=== PATIENT | male | born 1930 | race Caucasian/White ===

== ENCOUNTER 2016-05-25 17:49 | Emergency (ER) | payer MEDICARE, OTHER ==
[~2016-05-25] VITALS: Ht 175.3 cm; Wt 99.5 kg
[~2016-05-25 17:49] MED LIST: ASPI-973 PO; CEPH500C PO; CHOL500011 PO; CYAN50003 PO; FINA5TAB9 PO; FURO-128 PO; LIP40 PO; MELA5TAB14 PO; METO-272 PO; METO5TAB5 PO; NITR0.4T6 SL; OXYC-474 PO; POTA-62 PO; POTA20TA16 PO; UBID100C16 PO; WARF5TAB PO; imdur PO
[2016-05-25 18:09] VITALS: BP 103/57; PULSE 6; RESP 16; O2SAT 97
--- NOTE | 2016-05-25 19:18 | DRSVH ---
PROCEDURE: X-RAY TOESS, TWO VIEWS INDICATIONS: injury/fx in past TECHNIQUE: 3 views of the first toe(s) acquired. COMPARISON: [facility], CR, XR TOE(S) 2VW RT, 05/01/2016, 22:33. FINDINGS: Bones: Persistent appearance of nonunion a previously identified distal first phalanx fracture. There is a minimal interval decrease in fracture lucency prominent. Soft tissues: No suspicious soft tissue densities. IMPRESSION: Questionable minimal interval decrease in fracture lucency prominence a previous identifi ed distal first phalanx nonunion fracture. Dictated by: Glenda Lima M.D. on 05/25/2016 at 19:16 Approved by: Glenda Lima M.D. on 05/25/2016 at 19:16
--- NOTE | 2016-05-25 20:41 | ED.REPORT ---
HPI-Extremity Problem Lower Date of Service May 25, 2016 ED Provider: Bradford Ramos MD Pt is a 85 y/o male anticoagulated on warfarin who presents to ER accompanied by his complaining of reinjuring his broken right great toe when he stubbed it while walking to bed this evening. also reports that the patient has been inconsistent with his warfarin for the past four days, and there is thus some concern regarding his INR level. Patient previously broke the affected digit on 05/01/16 while stepping out of the shower. He does not voice any further medical complaints or injuries. Nursing Notes Stated Complaint: TOE BLEEDING Chief Complaint: Extremity Trauma Nursing Notes Reviewed: Yes Allergies: Coded Allergies: No Known Allergies (Unverified , 05/25/16) Scheduled ([imdur]) 30 MG PO DAILY Aspirin (Aspirin) 81 Mg Tablet 81 MG PO DAILY Atorvastatin (Lipitor) 40 Mg Tablet 40 MG PO DAILY Cephalexin (Cephalexin) 500 Mg Capsule 500 MG PO QID Cephalexin (Keflex) 500 Mg Capsule 500 MG PO QID Cholecalciferol (Vitamin D3) (Vitamin D3) 5,000 Unit Tablet 5,000 UNIT PO DAILY Cyanocobalamin (Vitamin B-12) (Vitamin B-12) 5,000 Mcg Tab.rapdis 5,000 MCG PO DAILY Finasteride (Finasteride) 5 Mg Tablet 5 MG PO DAILY Furosemide (Lasix) 40 Mg Tablet 40 MG PO BID Metoprolol Succinate ER (Metoprolol Succinate ER) 50 Mg Tab.er.24h 50 MG PO DAILY Potassium Chloride (Potassium Chloride) 20 Meq Tab.er.prt 40 MEQ PO DAILY TAKE WITH FOOD Potassium Chloride ER (Potassium Chloride ER) 20 Meq Tablet.er 20 MEQ PO QPM TAKE WITH FOOD Warfarin Sodium (Coumadin) 5 Mg Tablet 5 MG PO DAILY Scheduled PRN Melatonin (Melatonin) 5 Mg Tablet 5 MG PO HS PRN PRN Insomnia Metolazone (Metolazone) 5 Mg Tablet 5 MG PO DAILY PRN PRN weight gain > 4 pounds to be given half hour before morning lasix dose Nitroglycerin SL (Nitroglycerin SL) 0.4 Mg Tab.subl 0.4 MG SL PRN For Chest Pain Oxycodone (Roxicodone) 5 Mg Tablet 5 MG PO TID PRN PRN For Pain Miscellaneous Medications Ubidecarenone (Coq-10) 100 Mg Capsule 300 MG PO General Time Seen by MD: 20:39 Chief Complaint Foot injury right, Toe injury right 1 foot bleeding Hx Obtained From: Patient, Spouse Arrived By: Walk-in Onset Occurred: 1 - 4 hours ago Caused by: Accidental, Blunt injury Context: Occurred at: Home injury Location: : Toe right 1 Quality: Painful Severity: Current: Moderate Severity: Maximum: Moderate Past Medical History Past Medical History A-fib on Warfarin CAD Hypertension Hyperlipidemia Ischemic heart disease Bradycardia chronic kidney disease diastolic congestive heart failure mitral valve regurgitation Back pain Depression Past Surgical History CABG in 1998 Pacemaker 11/2013 Left knee arthroplasty Smoking History Unknown if Ever Smoker Social History Home health aide visits twice a week but expresses that she is reaching the limit of her ability to care for patient. She requires EMS to assist after falls. 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 Ambulatory Status Independent Review of Systems Musculoskeletal: Reports: Extremity pain (Right great toe), Extremity swelling (Right great toe), Denies: Back pain, Joint pain, Lumbar pain, Neck pain, Thoracic pain Neurologic: Denies: Headache, Syncope Complete sys rev & neg: except as marked. Hematologic: Reports Bleeding (bleeding of right toe) Physical Exam Initial Vital Signs Vital Signs (First) Date Time Temp Pulse Resp B/P Pulse Ox O2 Delivery O2 Flow Rate FiO2 05/25/16 18:09 36.8 6 16 103/57 97 Initial VS: Reviewed Head / Eyes: Atraumatic, Normocephalic, PERRL ENT: Mucous membranes moist, Conjunctiva normal, No scleral icterus Neck: Supple, Non-tender, Full range of motion Respiratory: Breath sounds normal, Clear to auscultation, No respiratory distress Abdomen / GI: Soft, Non-tender, No guarding, No rebound, No distention Skin: Warm, Dry, No cyanosis Neurologic: Alert, Oriented, Nonfocal Psychiatric: Mood/affect normal, Behavior normal, Normal thought content Lower Extremity / Pelvis / MS: Inspection NL, Neurologic intact, Vascular intact Ankle / Foot: Neurologic intact, Vascular intact Right Great Toe: Positive: Swelling present..., Tenderness present... Right toe nail evulsed previously. General/Constitutional: Awake, Alert, Well appearing, Well developed, Well nourished Interpretation & Diagnostics X-Ray Interpretation Xray Interpretation: IMPRESSION: Questionable minimal interval decrease in fracture lucency prominence a previous identified distal first phalanx nonunion fracture. Dictated by: Glenda Lima M.D. on 05/25/2016 at 19:16 Approved by: Glenda Lima M.D. on 05/25/2016 at 19:16 X-Ray Ordered: Foot right (Toe) Interpretation / Wet Read by: Interpret - Radiologist Re-Eval/Medical Decision Med Decision/Clinical Course I opted not to check an INR because there was no active bleeding when I saw the patient. Source of Hx: Old records Counseled Regarding: Diagnosis, Need for follow-up, When/why to return to ED Discharge & Departure Impression: Primary Impression: Fracture, toe Encounter type: initial encounter Toe: great toe Fracture type: open Phalanx: distal Fracture alignment: nondisplaced Laterality: right Qualified Code: S92.424B - Nondisplaced fracture of distal phalanx of right great toe, initial encounter for open fracture Additional Impression: Laceration of right great toe Encounter type: initial encounter Qualified Code: S91.111A - Laceration without foreign body of right great toe without damage to nail, initial encounter Disposition: Home Discharge Condition All VS Reviewed: Yes Condition: Stable Additional Instructions: This is an open fracture and so you should take antibiotics for a week to prevent bone infection. Take your warfarin as instructed. Cleanse the wound gently once a day. Use the stiff shoe all the time until this is healed. Follow-up right away for increasing redness or pain or uncontrolled bleeding. Referrals: Ej Goodwin DO (PCP) Deniseibjorje Attestation Portions of this note were transcribed by Ahmet Peterson and Josie Monet. I, personally performed the history, physical exam and medical decision -making; I reviewed and confirmed the accuracy of the information in the transcribed note. Signed by:Heather Contreras, 05/25/16 and 2179. copies to: Ej Goodwin Kirk H MD May 25, 2016 20:41 Ahmet Peterson May 25, 2016 21:13 JOSIE MONET May 25, 2016 23:26
[2016-05-25] MEDS ORDERED: CEPH-512 PO (21:16)
== END 2016-05-25 21:39 | disposition home or self-care (01) ==
LOC: SED 17:49
DX: S92.424B Nondisplaced fracture of distal phalanx of right great toe, initial encounter for open fracture (principal); W22.8XXA Striking against or struck by other objects, initial encounter; Y93.01 Activity, walking, marching and hiking; Y99.8 Other external cause status; Y92.013 Bedroom of single-family (private) house as the place of occurrence of the external cause; I48.91 Unspecified atrial fibrillation; I12.9 Hypertensive chronic kidney disease with stage 1 through stage 4 chronic kidney disease, or unspecified chronic kidney disease; I25.10 Atherosclerotic heart disease of native coronary artery without angina pectoris; Z95.1 Presence of aortocoronary bypass graft; Z95.0 Presence of cardiac pacemaker; Z79.82 Long term (current) use of aspirin; Z79.01 Long term (current) use of anticoagulants

== ENCOUNTER 2016-06-08 15:39 | Inpatient (IN) | payer MEDICARE, OTHER ==
[~2016-06-08] VITALS: Ht 175.3 cm; Wt 93.5 kg
[~2016-06-08 15:39] MED LIST changes: +CEPH-512 PO
[2016-06-08 18:06] VITALS: BP 109/60; PULSE 60; RESP 20; O2SAT 98
[2016-06-08 18:09] VITALS: PULSE 63
--- NOTE | 2016-06-08 18:31 | NUR ---
Admit [facility] [place] rm 3011 Pt directly admitted to unit at [address] Caldwell's orders. No orders in yet. Pt appears comfortable. Denies CP. NO IV present yet. Tele in place Vpaced 60s, per tech. at bedside assisted with questions. Pt oriented to room and facility. Questions answered. Admit info completed, except for med rec.
[2016-06-08] MEDS ORDERED: Ondansetron 2 mg/mL 2 mL Inj IVPUSH PRN (18:55)
[2016-06-08] MEDS ORDERED: Polyethylene Glycol (PEG) 17 Gm Powder PO PRN (18:55)
[2016-06-08] MEDS ORDERED: Alum-Mag Hydrox-Simeth 30 mL Suspension PO PRN (18:55)
[2016-06-08] MEDS ORDERED: Senna-Docusate 8.6-50 mg Tablet PO PRN (18:55)
[2016-06-08] MEDS ORDERED: Atropine 1 mg/10 mL (Code) Syringe IVPUSH PRN (18:55)
[2016-06-08] MEDS ORDERED: Heparin Initial Bolus IVPUSH ONE (19:55)
[2016-06-08] MEDS ORDERED: Heparin Protocol Boluses IVPUSH PRN (19:55)
[2016-06-08 20:48] LABS: BASOPHILS % (AUTO) 1.1 % (0-3); EOSINOPHILS % (AUTO) 5.6 % (0-5); Mean Corpuscular Hemoglobin 27.8 pg (27.0-35.0); Mean Corpuscular Volume 85.6 fL (81-100); NEUTROPHILS % (AUTO) 45.5 % (40-74); Platelet Count 161 bil/L (150-400)
[2016-06-08] MEDS: Heparin 25K Unit/500mL 0.45 NS 25,000 UNIT in IV Premix 1 EACH IV SCH (20:54)
[2016-06-08 21:07] LABS: INR 1.44 ratio
[2016-06-08 21:25] LABS: Magnesium 2.2 mg/dL (1.6-2.6)
--- NOTE | 2016-06-08 22:24 | HP ---
[address] [address] HISTORY AND PHYSICAL PATIENT: SAMANTHA LATHAM : 1930 MR#: [id number] ADMIT: 06/08/2016 JOB ID: [id number] PATIENT HISTORY: The patient is a delightful 85-year-old male with a history of atherosclerotic cardiovascular disease status post CABG, atrial fibrillation with slow ventricular response, status post single-chamber pacemaker implantation, combined systolic and diastolic heart failure with [place] Heart Association class III symptoms. We have been following the patient after two separate ED visits for ground level falls, one on April 26, 2016 and the 2nd on May 01, 2016. The 2nd fall occurred when he tripped in the shower, but he is uncertain why he fell on the . ED evaluation revealed he was hypokalemic. Orthostatic blood pressures were negative both in the emergency department and during a subsequent followup. However, he was mildly hypotensive. He is unsteady on his feet and he is a fall risk. Possible causes of his falling episodes include dehydration, arrhythmia, particularly in light of his electrolyte abnormalities, symptoms of heart failure, or simply the fact that he is a fall risk. We have been taking an incremental approach to raising his blood pressure and restoring his electrolytes without further exacerbating his heart failure by reducing his dose of Bumex and isosorbide mononitrate, gradually increasing his free water intake and reducing sodium intake. Chest x-ray was done May 02, 2016 which revealed a right pleural effusion. This approach seems to be working. Blood pressure in the office today was 120/60, however, of late he has been experiencing exertional chest pain when walking as little as 100 feet. The chest pain is relieved with rest and nitroglycerin. Those episodes also are associated with shortness of breath. Possible causes include progressive coronary artery disease and increased left-sided heart pressures secondary to worsening heart failure. Labs drawn revealed a creatinine of 1.8 and a GFR of 33. As such, Dr. Caldwell preferred to admit the patient in preparation for a possible left heart catheterization. PAST MEDICAL HISTORY: 1. Atherosclerotic cardiovascular disease, status post CABG. 2. Atrial fibrillation with slow ventricular response, status post single-chamber pacemaker implantation. 3. Combined systolic and diastolic heart failure. 4. Frequent falls from balance problems. 5. Hyperlipidemia. 6. Restrictive lung disease. SURGICAL HISTORY: 1. Coronary artery bypass graft surgery. 2. Single-chamber pacemaker implantation. MEDICATIONS: 1. Aspirin 81 mg. 2. Atorvastatin 40 mg. 3. Keflex 500 mg capsules four times a day. 4. Vitamin D. 5. Vitamin B12. 6. Finasteride 5 mg tablets daily. 7. Melatonin 5 mg as needed for sleep. 8. Metolazone 2.5 mg daily. 9. Metoprolol succinate 50 mg daily. 10. Nitroglycerin 0.4 mg as needed for chest pain. 11. Oxycodone 5 mg up to three times a day as needed for pain. 12. Potassium chloride 40 mg and the morning and 20 mg in the evenings. 13. Warfarin 5 mg Monday, Monday and and 7.5 mg Monday, Monday, Monday and Monday. 14. Zoloft 12.5 mg daily. 15. Torsemide 30 mg twice a day. FAMILY HISTORY: There is no remarkable family history. SOCIAL HISTORY: The patient smoked uncertain about how many years. He quit many years ago, however. The patient does not drink. He is . REVIEW OF SYSTEMS: Patient complains of chest pain, shortness of breath, decreased exercise tolerance, peripheral edema, balance problems, frequent falls. Otherwise, eight system review is negative. PHYSICAL EXAMINATION: When I evaluated the patient, he was alert and oriented in bed and in a good mood. The blood pressure is 109/60, pulse is 60, respirations 20, temperature is 36.6, pulse ox is 98% on room. Skin was warm and dry. Auscultation of the lungs revealed that the lungs were clear in all morillo. Auscultation of the heart revealed normal S1, S2 without murmurs, clicks, or rubs. Palpation of the abdomen was soft and nontender. The patient had +2 edema in lower extremities. EKG revealed that the patient was in a paced rhythm at a rate of 60. ASSESSMENT AND PLAN: 1. Atherosclerotic cardiovascular disease. The patient is a delightful 85-year-old male. Lately, he has been experiencing exertional chest pain when walking as little as 100 feet which is relieved with nitroglycerin. There is also associated shortness of breath. The patient has a history of atherosclerotic cardiovascular disease status post coronary artery bypass graft several years ago. As such, Dr. Caldwell felt it was important for him to come to be admitted to the hospital in preparation for possible left heart catheterization. We will get a full set of labs including CBC, CMP, TSH, troponin every 8 hours x3. Will also start heparin with a cardiac protocol with no loading dose because the patient has renal disease. We will get a complete echo. We will begin gentle fluid therapy tomorrow to prevent acute renal failure from contrast dye and perform a left heart catheterization at a later date. 2. Atrial fibrillation. The patient has a history of atrial fibrillation with slow ventricular response managed with AV blocking agents and single-chamber pacemaker. We will continue the beta ibis and aspirin. 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 3. Heart failure. The patient has combined systolic and diastolic heart failure. We will keep him on a restricted sodium diet. We will start IV fluid therapy in preparation for the heart catheterization. He will continue his Bumex and Torsemide. MTDD
--- NOTE | 2016-06-08 22:40 | NUR ---
Could not do Med Rec farm assistant sent med list request to [facility] but no reply. Pts was called but did not answer.
[2016-06-09] VITALS (8 sets, daily range): BP systolic 96–117; BP diastolic 42–74; PULSE 60–71; RESP 18–21; O2SAT 95–97
[2016-06-09] MEDS: Sodium Chloride LOK Flush 10 mL Syringe IVFLUSH SCH ×6 (00:30→23:12)
[2016-06-09 04:19] LABS: Phosphorus 3.4 mg/dL (2.5-4.9)
[2016-06-09] MEDS ORDERED: MeTOProlol XL 50 mg ER24 Tablet PO ONE (08:30)
[2016-06-09] MEDS ORDERED: Potassium Chloride 20 mEq SR Tablet PO SCH ×2 (08:30→22:00)
[2016-06-09] MEDS ORDERED: 0.9% Sodium Chloride 1,000 ML IV ONE (13:04)
[2016-06-09 15:20] LABS: INR 1.47 ratio
--- NOTE | 2016-06-09 16:19 | NUR ---
Social Work: Initial Assessment Data: Pt is an 85 y/o male admitted for angina. Pt's PCP is Goodwin, pt's insurance is Medicare with [employer]. NOZZLE TENDER met with pt at bedside, role explained. Pt states he lives in a single story home with his spouse where he uses a cane. Pt states that he drives, has history with unknown HH company, no history with SNF, and no VA or LTC insurance. Pt is not a caregiver for anyone. No d/c planning needs anticipated at this time. NOZZLE TENDER will continue to follow if needs arise. Assessment: Pt who is independent at baseline. Plan: Pt will d/c home via POV when medically stable. No d/c planning needs anticipated at this time. NOZZLE TENDER will continue to follow if needs arise. CRISTIAN Napier Addendum: 06/09/16 at 1626 by SYLWIA MACHADO Amended: Links added.
--- NOTE | 2016-06-09 18:21 | NUR ---
Chest Pain/Hep drip Pt has remained free from chest pain or discomfort this shift. Remains on heparin drip. Last ptt drawn at approx 1400, with result at 72.3. Drip rate remains unchanged - with it running at 900 units/hr. Next ptt to be drawn in 6 hrs. Cardiac cath scheduled for tomorrow. Orders for drip to be stopped 4 hrs prior to procedure.
[2016-06-09] MEDS ORDERED: WARF2.5T82 PO (20:43)
[2016-06-09] MEDS ORDERED: SENN-133 PO (20:43)
[2016-06-09] MEDS ORDERED: TORS20TA3 PO (20:43)
[2016-06-09] MEDS ORDERED: WARF5TAB7 PO (20:43)
[2016-06-09] MEDS ORDERED: CHOL10008 PO (20:43)
[2016-06-09] MEDS ORDERED: METO-272 PO (20:43)
[2016-06-09] MEDS ORDERED: METO2.5T12 PO (20:43)
[2016-06-09] MEDS ORDERED: OMEG-38 PO (20:43)
[2016-06-09] MEDS ORDERED: SERT25TA6 PO (20:43)
[2016-06-09] MEDS ORDERED: DOCU-41 PO (20:45)
[2016-06-09] MEDS: Potassium Chloride 20 mEq SR Tablet PO SCH (22:07)
--- NOTE | 2016-06-09 22:55 | PROG NOTE ---
[address] [address] PROGRESS NOTE PATIENT: SAMANTHA LATHAM : 1930 MR#: [id number] ADMIT: 06/08/2016 JOB ID: [id number] DATE: 06/09/2016 INTERVAL HISTORY: Patient is a delightful 85-year-old gentleman who is admitted to the hospital with exertional angina and shortness of breath. History of coronary artery disease, atrial fibrillation, pulmonary hypertension status post pacemaker. Patient today is feeling better. He is started on heparin drip. At the time of my evaluation, was undergoing echocardiography. No specific symptoms were reported to me. PHYSICAL EXAMINATION: His vital signs are blood pressure 102/63, pulse of 61 and oxygen saturation 97%. He is alert, oriented, not in any distress. Lying comfortably in bed in a propped up position. Air entry is fair with diminished breath sounds in the right lower base. S1, S2 is irregular. Heart sounds are distant. Abdomen is large, pendulous. Lower extremities have 1 to 2+ pedal edema noted bilaterally. LABORATORIES: His troponins are elevated at 0.06 and previous troponin was 0.66. His sodium is 138 and potassium of 2.7. Echo results are pending. PLAN: 1. Potassium dose 40 mEq daily. 2. Obtain list of home meds for medication reconciliation. 3. Echocardiogram results pending. 4. Possible cardiac catheterization for tomorrow morning. 5. Heparin will be stopped 4 hours prior to the procedure. 6. IV fluids to be started in the morning 4 hours prior to his coronary angiography. LISA
[2016-06-10] VITALS (12 sets, daily range): BP systolic 109–135; BP diastolic 56–84; PULSE 59–68; RESP 11–20; O2SAT 95–100
[2016-06-10] MEDS: Heparin 25K Unit/500mL 0.45 NS 25,000 UNIT in IV Premix 1 EACH IV SCH (00:27)
--- NOTE | 2016-06-10 03:19 | NUR ---
Confusion Pt beginning of shift this RN had conversation with Pts regarding his recent increase in confusion. She though his confusion became significantly worse when Pt took sertraline. Pt has been setting off bed alarm and not using call light all shift, despite education by staff.
[2016-06-10] MEDS: Sodium Chloride LOK Flush 10 mL Syringe IVFLUSH SCH ×6 (07:13→22:06)
[2016-06-10 07:33] LABS: INR 1.31 ratio
--- NOTE | 2016-06-10 09:14 | NUR ---
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
[2016-06-10] MEDS: Potassium Chloride 20 mEq SR Tablet PO SCH ×2 (09:39→20:05)
[2016-06-10] MEDS: MeTOProlol XL 50 mg ER24 Tablet PO SCH (09:39)
--- NOTE | 2016-06-10 09:48 | NUR ---
[facility] Signed
[2016-06-10] MEDS ORDERED: 0.9% Sodium Chloride 1,000 ML IV ONE (10:00)
--- NOTE | 2016-06-10 11:40 | DRSVH ---
PROCEDURE: X-RAY CHEST, TWO VIEWS ([id number]) INDICATIONS: SHORTNESS OF BREATH. TECHNIQUE: Two views of the chest were acquired. COMPARISON: [facility], CR, XR CHEST 2VW, 05/27/2016, 14:57. FINDINGS: Surgical changes and devices: Stable position of single chamber cardiac pacer. Post median sternoto my. Lungs and pleura: Bibasilar airspace opacities and small right pleural effusion redemonstrated. No pneumothorax. Mediastinum: Mediastinal contours are normal. Heart size is normal. Bones and chest wall: No suspicious bony abnormalities. Soft tissues appear unremarkable. IMPRESSION: 1. Small effusions and bibasilar airspace opacities consistent with atelectasis, aspiration or pneumo placido. Continued radiographic surveillance to resolution is recommended. Dictated by: Raymon Arrington A Interpreted: Emilie Saavedra MD on 06/10/2016 at 11:11 Transcribed by: LOLI on 06/10/2016 at 14:39 Approved by: Emilie Saavedra MD, PhD on 06/10/2016 at 16:47
[2016-06-10] MEDS ORDERED: Nitroglycerin 50,000 mcg/250 mL D5W Premix IV ONE (13:16)
[2016-06-10] MEDS ORDERED: Heparin 1,000 Units/500 mL NS Premix IV ONE ×2 (13:16→15:04)
[2016-06-10] MEDS ORDERED: Heparin 1,000 Unit/mL 10 mL Inj ONE (13:17)
[2016-06-10] MEDS ORDERED: Heparin 5,000 Units/500 mL NS Premix IV ONE (13:17)
[2016-06-10] MEDS ORDERED: 0.9% Sodium Chloride 50 ML ONE (13:28)
[2016-06-10] MEDS ORDERED: fentaNYL-PF 50 mCg/mL 2 mL Inj ONE (13:51)
--- NOTE | 2016-06-10 14:04 | NUR ---
PT down to cathlab approx 1330
--- NOTE | 2016-06-10 16:31 | DRSVH ---
[facility] [address] [facility] [facility] [place] [address] Echocardiogram Report Name: SAMANTHA LATHAM ESteren Date: Height: 69 in Hospital Exam Location: [facility] Weight: 209 lb Gender: Male BSA: 2. 1 m2 : 1930 Age: 85 yrs BP: 115 /65 mmHg Reason For Study: Angina History: PFO, CABG, pacemaker Ordering Physician: Franky BERNSTEIN-CPerformed By : Anisa Pyle Referring Physician: Dr. Diony Caldwell Interpretation Summary Pace rhythm. 1. The LV size is normal with severe left ventrcular hypertrophy. The estimated ejection fraction is 50-55%. 2. Moderate biatrial enlargement. Small PFO is noted.. E/e > 15 suggest elevated filling pressures. 3. Mild mitral regurgitation. 4. Mild to moderate tricuspid regurgitation. RVSP ~ 65-70mmHg. 5. Mild aortic stenosis is noted. 6. No significant interval change is noted. Procedure: A two-dimensional transthoracic echocardiogram with color flow and Doppler was performed. The study quality was technically adequate. Comparison is made with the echocardiogram of 11/18/2015. The patient has a paced rhythm. Left Ventricle: Left ventricular wall thickness is severely increased. The left ventricular cavity is small. The ejection fraction is estimated to be 55 -60%. Diastolic function could not be accurately assessed due to paced rhythm. Right Ventricle: There is a pacemaker lead in the right ventricle. The right ventricle is mildly dilated. Right ventricular systolic function is moderately reduced. Atria: There is moderate biatrial enlargement. A patent foramen ovale is present. Mitral Valve: There is mild mitral annular calcification. The mitral valve leaflets are mildly calcified. There is mild mitral regurgitation. Aortic Valve: The aortic valve is trileaflet. There is moderate aortic valve sclerosis. There is trace aortic regurgitation. Tricuspid Valve: The tricuspid valve leaflets are thin and pliable. There is mild tricuspid regurgitation. The right ventricular systolic pressure is estimated at 66 mmHg assuming a right atrial pressure of 15 mm Hg. Pulmonic Valve: The pulmonic valve is not well seen, but is grossly normal. There is a trace or physiologic amount of pulmonic regurgitation. Great Vessels: The aortic root is normal size. The ascending aorta is mildly enlarged. The aortic arch could not be visualized. The IVC is dilated (diameter is greater than 2.1 cm) and it collapses less than 50% with a sniff. This suggests a high right atrial pressure of 15 mm Hg. Pericardium/ Pleura There is no pericardial effusion. MMode/2D Measurements & Calculations LVIDd: 3.5 cm RA long axis LVOT diam LVIDs: 3.2 cm LA A2 area: 24.9 cm FS: 9.8 % LA A4 area: 31.1 cm RA area Ao root diam EPSS: 0.61 cm LA length (vol): 7.0 cm IVSd: 2.2 cm LA vol: 93.9 ml : 26.6 cm asc Aorta LVPWd: 1.8 cm LA vol index RA vol: 81.8 mlDiam: 3.8 cm RA : 38.9 mm2 IVC diam: 2.5 cm LV carter. diameter/BSA LV sys. diameter/BSA RVD1 (basal) TAPSE: 0.96 cm (cm/m^2): 1.7 (cm/m^2): 1.5 Doppler Measurements & Calculations Ao V2 max MV E max lucho Med Peak E' Lucho TR max lucho : 127.7 cm/sec : 76.3 cm/sec : 358.1 cm/sec Ao max PG MV P1/2t: 45.8 msec E/E' med: 19.6 TR max PG : 6.5 mmHg Lat Peak E' Lucho : 51.3 mmHg Ao mean PG PA V2 max E/E' lat: 12.7 : 65.5 cm/sec LVOT Max Lucho E/e' average PA mean PG : 53.7 cm/sec : 0.76 mmHg PA Accel Time TYRELL(I,D): 1.8 cm : 0.11 sec sev ratio MV dec time MV P1/2t max lucho Ao V2 mean LV V1 max PG : 0.16 sec : 86.1 cm/sec MVA(P1/2t): 4.8 cm2 Ao V2 VTI: 30.1 cmLV V1 VTI TYRELL(V,D): 1.6 cm2 : 13.9 cm PA V2 mean TYRELL indexed to BSA : 40.7 cm/sec (cm^2/m^2): 0.85 Electronically signed by: Dr. Diony Caldwell on Reading Physician:06/10/2016 04:29 PM
--- NOTE | 2016-06-10 17:47 | NUR ---
[facility] CATH PT WAS RECEIVED FROM FORGE UTILITY WORKER AT 1605. RIGHT GROIN WITH OPSITE HAS REMAINED SOFT, NON TENDER, NO BLEEDING, OR HEMATOMA NOTED. PT HAS BEEN COMPLIANT WITH KEEPING RIGHT LEG STRAIGHT AND HEAD ON THE PILLOW. RIGHT DP/PT PER DOPPLER. MD ORDERS WERE CLARIFIED WITH DR EMERSON. MONITOR SHOWS PACED RHYTHM. REPORT CALLED TO JENNI Wong RN AND WILL PLAN TO TRANSFER PT BACK TO ROOM 3011 AT 1800. BEDREST UNTIL 2004. NS RUNNING AT 100ML/HR X6 HRS POST CATH.
--- NOTE | 2016-06-10 18:10 | NUR ---
[facility] TRANSFER PT AND HIS NURSING CARE WERE TRANSFERRED BACK TO ROOM 3011 AT 1805. RN TO RN BEDSIDE HANDOFF WAS DONE WITH JENNI Wong RN. TELE CONFIRMED WITH CATTLE CARE WORKER.
--- NOTE | 2016-06-10 18:34 | NUR ---
Return from [facility] Returned to [address] [facility], pt still groggy, but oriented x3. R groin sites minimal drainage, no s/s infection. Will continue bedrest until 20:00
[2016-06-11 00:19] VITALS: BP 132/75; PULSE 64; RESP 18; O2SAT 97
[2016-06-11 04:49] VITALS: BP 117/63; PULSE 61; RESP 20; O2SAT 97
[2016-06-11 06:05] VITALS: PULSE 65
--- NOTE | 2016-06-11 06:42 | NUR ---
Activity up with SBA and tolerating without any noted issues. Right groin site remains soft and tender to touch without any active s/s of bleeding with movement and at rest.
[2016-06-11] MEDS: Sodium Chloride LOK Flush 10 mL Syringe IVFLUSH SCH ×2 (08:30→08:36)
[2016-06-11] MEDS: Potassium Chloride 20 mEq SR Tablet PO SCH (08:36)
[2016-06-11] MEDS: MeTOProlol XL 50 mg ER24 Tablet PO SCH (08:36)
[2016-06-11] MEDS ORDERED: 0.9% Sodium Chloride 1,000 ML IV SCH (08:40)
[2016-06-11 08:57] LABS: Mean Corpuscular Hemoglobin 28.2 pg (27.0-35.0); Mean Corpuscular Volume 85.7 fL (81-100)
[2016-06-11 09:32] VITALS: BP 111/66; PULSE 64; RESP 18; O2SAT 98
[2016-06-11 10:33] VITALS: PULSE 62
--- NOTE | 2016-06-11 10:44 | PCM.DICHF ---
CHF Discharge Instructions Dates of Hospitalization Date of Hospital Admission Jun 08, 2016 at 17:45 Providers Admitting Physician: Diony Caldwell MD Primary Care Physician: Ej Goodwin DO Attending Physician: Diony Caldwell MD Diagnosis at Time of Discharge Labs Ejection Fraction Laboratory Tests Test Range/Units 06/08/16 20:33 06/09/16 02:47 06/09/16 14:00 06/09/16 18:35 Hemoglobin A1c 4.8-5.6 % 6.1 Magnesium Level 1.6-2.6 mg/dL 2.2 Total Bilirubin 0.0-1.2 mg/dL 1.4 Aspartate Amino Transf (AST/SGOT) 0-50 U/L 35 Alanine Aminotransferase (ALT/SGPT) 0-44 U/L 31 Alkaline Phosphatase 25-160 U/L 251 Pro-B-Type Natriuretic Peptide 0-486 pg/mL 5153 Total Protein 6.4-8.4 g/dL 6.2 Prealbumin 20-40 mg/dL 15 Vitamin B12 Level 211-946 pg/mL >1999 Thyroid Stimulating Hormone (TSH) 0.450-4.500 uIU/mL 2.130 Phosphorus Level 2.5-4.9 mg/dL 3.4 Albumin 3.4-5.0 g/dL 3.2 Human Chorionic Gonadotropin, Qual Negative <0.500 Troponin T 0.0-0.011 ug/L 0.051 Test Range/Units 06/11/16 08:52 Sodium Level 134-144 mEq/L 136 Potassium Level 3.5-5.2 mEq/L 3.6 Chloride Level 97-108 mEq/L 97 Carbon Dioxide Level 18-29 mmol/L 26 Blood Urea Nitrogen 8-27 mg/dL 32 Creatinine 0.76-1.27 mg/dL 1.27 Estimat Glomerular Filtration Rate >59 mL/min 57 Glucose Level 60-99 mg/dL 117 Calcium Level 8.5-10.1 mg/dL 8.9 Discharge Medications Other Medication Instructions You have received instructions on the medications your physician has prescribed at discharge. A list of these medications has been provided to you. Keep this and a list of all current medications with you. Keep the dates when you received the Flu and Pneumococcal (Pneumonia) Vaccines. Last known date of receiving Flu Vaccine 02/20 Last known date of receiving Pneumococcal (Pneumonia) Vaccine KILN OPERATOR HELPER Diet Diet Instructions CHF Low Salt diet ( 2 grams or less sodium/day) Choose foods and drinks with low or no salt. Remove salt shaker from the table. Read Nutritional Facts labels. Weight Monitoring 1. Weigh yourself every day at the same time and write it down. 2. Take your weight log to your doctor visits. 3. Call your doctor if you gain 3-5 pounds over 2-3 days. 4. Your weight today is 206.13 lbs. Additional Instructions Smoking--Tobacco Use If you smoke, you are strongly encouraged to stop. If you have recently quit smoking, CONGRATULATIONS. For further information to stop smoking or to remain smoke-free, Follow Up Plan Cardiology Follow-up Midlevel: 2 weeks Report or call your Doctor REPORT TO YOUR DOCTOR OR SEEK MEDICAL ATTENTION: *Shortness of breath or have more difficulty breathing. *Swelling of your feet, ankles, hands or abdomen. *Feeling tired with normal activity or experiencing dizziness or fainting. *Trouble sleeping or waking up feeling short of breath or coughing. *Chest pain or pressure. *Weight gain of 3-5 pounds over 2-3 days. *Inability to take medications or follow treatment plan Heart Attach warning signs HEART ATTACK WARNING SIGNS * Chest discomfort. *Discomfort or pain in one or both arms, back, neck, jaw or stomach. *Shortness of breath. *Breaking out in a cold sweat, nausea, or lightheadedness. If you're having heart attack warning signs: CALL . DON'T WAIT MORE THAN A FEW MINUTES - 5 MINUTES AT MOST - TO CALL . Diony Caldwell MD Jun 11, 2016 10:44
[2016-06-11] MEDS ORDERED: TORS20TA3 PO (10:49)
--- NOTE | 2016-06-11 10:52 | NUR ---
Social Work: Discharge Data: Pt is on day 3 of hospitalization. EMR reviewed. D/C orders are in. No d/c planning needs at this time. STRAPPING MACHINE OPERATOR will continue to follow if needs arise. Assessment: Pt who is independent at baseline. Plan: Pt will d/c home via POV today. No d/c planning needs at this time. STRAPPING MACHINE OPERATOR will continue to follow if needs arise. CRISTIAN Napier
--- NOTE | 2016-06-11 11:30 | CS94 ---
[address] [address] DIAGNOSTIC CARDIAC CATHETERIZATION PATIENT: SAMANTHA LATHAM : 1930 MR#: [id number] ADMIT: 06/08/2016 JOB ID: [id number] SERVICE DATE: 06/10/2016 INDICATIONS: Angina, known history of coronary artery disease status post bypass surgery, pulmonary hypertension, atrial fibrillation, tachybrady syndrome, cardiac pacemaker in situ. The patient had a history of stage 2/stage 3 chronic kidney disease. CONSENT: The patient was explained the risks, benefits, and alternatives of the procedure. Informed signed consent was obtained and placed in the chart. I also specifically discussed the risk of contrast-induced acute kidney injury, given history of chronic renal failure. I had the consent from the patient to proceed with the procedure. PROCEDURES: 1. Complete heart catheterization. 2. Right heart catheterization. 3. Left heart catheterization. 4. Selective left and right coronary angiography. 5. Graft angiography including left internal mammary artery to left anterior descending, saphenous vein graft to posterior descending artery, and saphenous vein graft to obtuse marginal (OM). DESCRIPTION OF PROCEDURE: The patient was brought to the catheterization laboratory and placed in the catheterization table. Both groins were prepped and draped in the usual sterile manner. Lidocaine 1% was infiltrated in the right groin area. Using a standard modified Seldinger technique, the arterial sheath and a venous sheath were placed in the right femoral artery and femoral vein, respectively. A [place]-Oneal catheter was advanced over the guidewire into the right ventricle. Multiple attempts were made to advance the [place]-Oneal catheter. However, we could not succeed. Therefore, right coronary angiography catheter was used to place the wire into the right ventricular outflow tract. Further, the wire was advanced over the catheter into the left pulmonary artery. The right coronary angiography catheter was subsequently withdrawn and a 6-Telugu [place]-Oneal catheter was advanced and placed in the left pulmonary artery. Pulmonary capillary wedge pressures, PA pressures, oxygen saturations, RV pressures and RA pressures were obtained in a standard sequential manner. As part of the procedure, cardiac output by thermodilution method was also obtained. The left coronary angiography, the FL4 catheter was advanced over the guidewire and placed in the ostium of the left main coronary artery, and multiple views of the left coronary artery were obtained in multiple projections. Subsequently, an FR4 catheter was used to engage the right coronary artery, and multiple views of the right coronary artery were obtained in multiple projections. Using the FR4 catheter, the saphenous vein graft to PDA was engaged, and angiography of the saphenous vein graft to PDA was obtained. LCB catheter was used to engage the graft to the obtuse marginal branch. The right coronary angiography catheter was used to engage the tip of the catheter into the left subclavian vein. A long exchange J-wire was used and the catheter was withdrawn and exchanged with a ELLINGTON catheter. ELLINGTON to LAD angiography was performed in multiple views. The right groin angiography was performed. The Perclose closure device was not deployed successfully. Therefore, manual hold was performed. The patient was kept in the special observation unit for 2 hours to make sure there was no groin hematoma. Patient was clinically stable and was taken out of the special observation unit. FLUOROSCOPY TIME: 25.9 minutes. TOTAL CONTRAST USED: 170 cc. FINDINGS: RIGHT HEART HEMODYNAMICS: The pulmonary capillary wedge pressure was 16 mmHg. The PA pressure was 69/18, with a mean of 39 mmHg. RV pressure was 70/0, with an RVEDP of 8 mmHg, and RA pressure was 9/23, with a mean of 10 mmHg. The PA oxygen saturation was 63%, RA was 62%. The pulmonary capillary wedge oxygen saturation was 93%. The cardiac output by thermodilution method was 5.14, with index for body surface area at 2.44. By Raegan method, the cardiac output was 6.05 with a cardiac index of 2.87. The transpulmonary gradient was 23 mmHg, elevated, and the pulmonary vascular resistance was elevated at 4 Evans per unit. CORONARY ANGIOGRAPHY: The ostium of the left main coronary artery has mild stenosis of 40%. It bifurcates into left anterior descending artery and left circumflex coronary artery. The left anterior descending artery has a high-grade 80% to 90% stenosis, followed by a tandem lesion of 90% stenosis. Right at the junction of second tandem lesion there is an origin of the large septal fitness trainer, as well as a diagonal branch. The left anterior descending artery after the tandem lesion is not visualized. The diagonal branch demonstrates no significant disease and demonstrates adequate filling. The left circumflex coronary artery is small caliber vessel, which gives off first obtuse marginal branch. The mid left circumflex has a long, tubular stenosis of 70% to 80% which bifurcates into left circumflex and a second obtuse marginal branch. The right coronary artery has luminal irregularities in the proximal and mid segments. It gives off a large acute marginal branch. The PDA is completely occluded. The posterolateral branch is not visualized. The ELLINGTON to LAD graft is visualized with normal anastomosis and normal distal runoff in the LAD. The saphenous vein graft to the OM demonstrates no significant disease. The graft anastomosis is normal, and the distal runoff demonstrates mild diffuse disease. The saphenous vein graft to PDA is visualized. Filling of the posterolateral branch is visualized. Diffuse disease noted in the PDA and posterolateral branches. IMPRESSION: 1. Normal cardiac output. 2. Moderate pulmonary hypertension. Causes most likely due to both pulmonary, as well as cardiac reasons. Patient has mildly elevated left ventricular end-diastolic pressure. 3. Elevated right-sided pressures with right atrial pressure of 10 mm of Hg. 4. No evidence of glkg-rp-ioapi-cardiac shunt. 5. Coronary angiography: a. Severe three-vessel coronary artery disease. b. Patent left internal mammary artery to left anterior descending graft. c. Patent saphenous vein graft to obtuse marginal. d. Patent saphenous vein to posterior descending artery graft. The case was discussed with Dr. Tejada. Based on the findings, the patient will be best served with optimal medical therapy. No stenotic lesions noted requiring any intervention at this time. Results discussed with the patient and her family members. LISA
--- NOTE | 2016-06-11 13:47 | NUR ---
DISCHARGE Pt dc'd at 1300 this afternoon, off unit in w/c accompanied by and ANODISER. Vital signs stable, alert and oriented with some forgetfulness, denies pain and in no apparent distress. IV dc'd intact, all belongings returned. All instructions for diet, activity, medications, prescriptions, wound care and follow up reviewed with patient and , who report understanding.
--- NOTE | 2016-06-11 22:34 | DIS ---
[address] [address] DISCHARGE SUMMARY PATIENT: SAMANTHA LATHAM : 1930 MR#: [id number] ADMIT: 06/08/2016 JOB ID: [id number] DIS: 06/11/2016 PROBLEM LIST: 1. Coronary artery disease. 2. Status post coronary artery bypass surgery. 3. Patent left internal mammary artery to left anterior descending, saphenous vein graft to posterior descending artery, and saphenous vein graft to obtuse marginal. 4. Hypertension. 5. Pulmonary hypertension. 6. Atrial fibrillation. 7. Tachy-shlomo syndrome, status post single chamber permanent pacemaker. 8. Hyperlipidemia. DISCHARGE MEDICATIONS: 1. Aspirin 81 mg daily. 2. Lovastatin 40 mg daily. 3. Vitamin D/cholecalciferol 1000 units daily. 4. Finasteride 5 mg daily. 5. Melatonin 5 mg as needed. 6. Metolazone 2.5 mg daily. 7. Torsemide 20 mg daily. 8. Metoprolol succinate 50 mg daily. 9. Nitroglycerin 0.4 mg p.r.n. for chest pain. 10. Potassium chloride 40 mEq daily. 11. Warfarin 5 mg Monday, Monday and , and 7.5 mg on Monday, Monday, Monday, and Monday. 12. Zoloft 12.5 mg daily. DIAGNOSTIC TESTS PERFORMED DURING THIS HOSPITALIZATION: 1. Chest x-ray. 2. Echocardiogram. 3. Right heart catheterization. 4. Left heart catheterization with coronary angiography and graft angiography. HOSPITAL COURSE: Patient was admitted on June 08, 2013 with symptoms of exertional angina. Patient has history of exertional angina. He was seen in the office and, therefore, was advised to go to the hospital for further evaluation. The patient was admitted on June 08, 2016. On evaluation, he was noted to have borderline elevated troponin levels. It was unclear whether it was due to his underlying chronic kidney disease or recent angina. Nonetheless, the patient was started on anticoagulation with heparin drip. Subsequently, he underwent an echocardiogram, chest x-ray, and was started on his routine home medications. Warfarin was held. On June 10, 2016, patient received IV hydration prior to his coronary angiography. Subsequently, he underwent complete heart catheterization including right heart catheterization and left heart catheterization. The right heart catheterization revealed moderate pulmonary hypertension with mildly elevated right ventricular end-diastolic pressure of 8 mmHg and elevated right atrial pressure of 10 mmHg. The cardiac output was normal. The coronary angiography revealed severe three-vessel coronary artery disease. The ELLINGTON to LAD graft was patent, saphenous vein graft to OM was patent, and saphenous vein graft to PDA was patent. After reviewing his angiogram, patient was deemed to be an ideal candidate for further optimizing his medical therapy. No further intervention was recommended. The closure device was not deployed successfully. Therefore, manual pressure was applied for 2 hours post procedure. The patient subsequently remained symptom free. No hematoma was noted. On the day of discharge, patient was doing excellent and did not complain of any groin pain. Was able to stand up on his feet. The echocardiogram in the hospital demonstrated normal LV size and function with ejection fraction of 50% to 55%. Patient has severe left ventricular hypertrophy. There was a small PFO and there is evidence of elevated left-sided filling pressures. There was mild mitral regurgitation and qree-mo-jsuvcdnu tricuspid regurgitation. When compared to previous echocardiogram, no significant changes were noted. LABS: On the day of discharge, his hemoglobin was 12.4, hematocrit of 37.7, WBC of 6.3, and platelets of 130. Chemistry panel: Sodium of 136, potassium of 3.6, chloride of 97, BUN of 32 and creatinine of 1.27 (trending down), and glucose of 117. PLAN: Patient was instructed to take medications as prescribed. The dose of Torsemide was further reduced to 20 mg daily. Patient instructed to follow up with me in the office in two weeks. Low-salt diet, daily weights. The patient advised to call me should there be significant increase in weight. TIME SPENT: Total time coordinating his discharge was more than 30 minutes.
== END 2016-06-11 13:00 | disposition home or self-care (01) | DRG 287 ==
LOC: MPC 17:45
PROVIDERS: ADMIT Internal Medicine Cardiovascular Disease; ATTEND Internal Medicine Cardiovascular Disease
PROC: B2111ZZ Fluoroscopy of Multiple Coronary Arteries using Low Osmolar Contrast (ICD-10-PCS; principal; 2016-06-10)
PROC: B2131ZZ Fluoroscopy of Multiple Coronary Artery Bypass Grafts using Low Osmolar Contrast (ICD-10-PCS; 2016-06-10)
PROC: 4A023N6 Measurement of Cardiac Sampling and Pressure, Right Heart, Percutaneous Approach (ICD-10-PCS; 2016-06-10)
PROC: B246ZZZ Ultrasonography of Right and Left Heart (ICD-10-PCS; 2016-06-10)
DX: I25.118 Atherosclerotic heart disease of native coronary artery with other forms of angina pectoris (principal); I50.42 Chronic combined systolic (congestive) and diastolic (congestive) heart failure; I10 Essential (primary) hypertension; I27.2 Other secondary pulmonary hypertension; Z91.81 History of falling; E78.5 Hyperlipidemia, unspecified; J98.4 Other disorders of lung; I48.91 Unspecified atrial fibrillation; Z95.0 Presence of cardiac pacemaker; I49.5 Sick sinus syndrome; Z95.1 Presence of aortocoronary bypass graft; Z79.82 Long term (current) use of aspirin; Z79.01 Long term (current) use of anticoagulants; I08.3 Combined rheumatic disorders of mitral, aortic and tricuspid valves

== ENCOUNTER 2016-07-22 17:12 | Emergency (ER) | payer MEDICARE, OTHER ==
[~2016-07-22] VITALS: Ht 175.3 cm; Wt 102.7 kg
[~2016-07-22 17:12] MED LIST changes: -CEPH-512 PO; -CEPH500C PO; +CHOL10008 PO; -CHOL500011 PO; +DOCU-41 PO; -FURO-128 PO; +METO2.5T12 PO; -METO5TAB5 PO; +OMEG-38 PO; +SENN-133 PO; +SERT25TA6 PO; +TORS20TA3 PO; +WARF2.5T82 PO; -WARF5TAB PO; +WARF5TAB7 PO
[2016-07-22 17:16] VITALS: BP 103/61; PULSE 60; RESP 19; O2SAT 98
--- NOTE | 2016-07-22 18:58 | ED.REPORT ---
HPI-Dental/Mouth Prob Date of Service Jul 22, 2016 ED Provider: Girma Medeiros MD Pt is a 85 y/o male anticoagulated on warfarin, HTN, and CAD who presents to the ED accompanied by his due to left face swelling increasing in severity for the past 3 days. Pt complains of L upper and lower jaw pain, rated at 9/10 in severity. Per patient's , he hasn't been able to eat for the past few days. He has upper dentures. He denies fever. INR was 4 earlier this week, skipped 2 doses of warfarin. Does not note dental pain. Nursing Notes Stated Complaint: SORE MOUTH CAN'T OPEN IT Chief Complaint: Dental Nursing Notes Reviewed: Yes Allergies: Coded Allergies: No Known Allergies (Unverified , 07/22/16) Scheduled ([imdur]) 30 MG PO DAILY Aspirin (Aspirin) 81 Mg Tablet 81 MG PO DAILY Atorvastatin (Lipitor) 40 Mg Tablet 40 MG PO HS Cephalexin (Cephalexin) 500 Mg Capsule 500 MG PO QID Cyanocobalamin (Vitamin B-12) (Vitamin B-12) 5,000 Mcg Tab.rapdis 5,000 MCG PO DAILY Finasteride (Finasteride) 5 Mg Tablet 5 MG PO DAILY Metolazone (Metolazone) 2.5 Mg Tablet 2.5 MG PO DAILY Metoprolol Succinate ER (Metoprolol Succinate ER) 50 Mg Tab.er.24h 75 MG PO BID Metoprolol Succinate ER (Metoprolol Succinate ER) 50 Mg Tab.er.24h 75 MG PO BID [place]-3/Dha/Epa/Fish Oil (Fish Oil 1,000 mg Softgel) 1 Each Capsule 1 EACH PO MORNING Potassium Chloride (Potassium Chloride) 20 Meq Tab.er.prt 40 MEQ PO DAILY TAKE WITH FOOD Potassium Chloride ER (Potassium Chloride ER) 20 Meq Tablet.er 20 MEQ PO QPM TAKE WITH FOOD Sertraline HCl (Sertraline) 25 Mg Tablet 25 MG PO DAILY Torsemide (Torsemide) 20 Mg Tablet 20 MG PO DAILY Warfarin Sodium (Warfarin Sodium) 5 Mg Tablet 5 MG PO DAILY Warfarin Sodium (Warfarin Sodium) 2.5 Mg Tablet 2.5 MG PO DAILY Scheduled PRN Docusate Sodium (Colace) 100 Mg Capsule 100 MG PO BID PRN PRN For Constipation Melatonin (Melatonin) 5 Mg Tablet 5 MG PO HS PRN PRN Insomnia Nitroglycerin SL (Nitroglycerin SL) 0.4 Mg Tab.subl 0.4 MG SL PRN For Chest Pain Oxycodone (Roxicodone) 5 Mg Tablet 5 MG PO TID PRN PRN For Pain Sennosides (Senna) 8.6 Mg Tablet 17.2 MG PO DAILY PRN PRN For Constipation Miscellaneous Medications Cholecalciferol (Vitamin D3) (Vitamin D3) 1,000 Unit Tab.chew 1,000 UNIT PO Ubidecarenone (Coq-10) 100 Mg Capsule 300 MG PO General Time Seen by MD: 18:57 Chief Complaint Jaw swelling Hx Obtained From: Patient, Spouse Arrived By: Walk-in Onset Occurred: 3 days ago Symptom Duration: Since onset Location: : Gum maxillary left Severity: Current: Pain level 9 out of 10 Past Medical History Past Medical History A-fib on Warfarin CAD Hypertension Hyperlipidemia Ischemic heart disease Bradycardia chronic kidney disease diastolic congestive heart failure mitral valve regurgitation Back pain Depression Past Surgical History CABG in 1998 Pacemaker 11/2013 Left knee arthroplasty Smoking History Unknown if Ever Smoker Social History Home health aide visits twice a week but expresses that she is reaching the limit of her ability to care for patient. She requires EMS to assist after falls. 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 Ambulatory Status Independent Review of Systems Constitutional: Denies: Fever Complete sys rev & neg: except as marked. Musculoskeletal: Reports: Joint pain (left jaw), Joint swelling (left jaw) Physical Exam Initial Vital Signs Vital Signs (First) Date Time Temp Pulse Resp B/P Pulse Ox O2 Delivery O2 Flow Rate FiO2 07/22/16 17:16 37.2 60 19 103/61 98 Room Air Initial VS: Reviewed General/Constitutional: Well-developed, Well-nourished Head / Eyes: Atraumatic, Normocephalic, PERRL Respiratory: Breath sounds normal, Clear to auscultation, No respiratory distress Cardiovascular: Regular rate & rhythm, Heart sounds normal, Intact distal pulses Abdomen / GI: Soft, Non-tender, No guarding, No rebound, No distention Extremities: Vascular intact, Neuro intact, No swelling, No tenderness Skin: Warm, Dry, No cyanosis Psychiatric: Mood/affect normal, Behavior normal, Normal thought content ENT: Airway patent, Mucous membranes moist, Pharynx NL, Tympanic membs NL no abscess perceived left facial swelling Neck: Atraumatic, Supple, No meningismus, Full range of motion, No adenopathy General/Constitutional: Awake, Alert, Cooperative Head / Eyes: Atraumatic, PERRL, EOMI tender swelling area L parotid, no warmth no fluctulance. Interpretation & Diagnostics Lab Results Interpretation Result Diagram: 07/22/16 1933 Test 07/22/16 19:33 White Blood Count 6.6th/mm3 (3.8-10.1) Red Blood Count 3.86mil/mm3 (4.40-5.80) Hemoglobin 10.6g/dL (13.8-17.2) Hematocrit 32.4% (41.0-50.0) Mean Corpuscular Volume 83.9fL (81-100) Mean Corpuscular Hemoglobin 27.5pg (27.0-35.0) Mean Corpuscular Hemoglobin Concent 32.7% (32.0-37.0) Red Cell Distribution Width 17.6% (12.3-15.4) Platelet Count 149bil/L (150-400) Neutrophils (%) (Auto) 53.5% (40-74) Lymphocytes (%) (Auto) 19.5% (14-46) Monocytes (%) (Auto) 20.9% (4-12) Eosinophils (%) (Auto) 5.0% (0-5) Basophils (%) (Auto) 0.9% (0-3) Prothrombin Time 20.5sec (8.1-12.5) Prothromb Time International Ratio 1.89ratio Hold Lindsay Top Tube Received (Received) Re-Eval/Medical Decision Med Decision/Clinical Course L sided facial swelling and pain, seems associated with parotid gland. non toxic, airway intact, no abscess. INR just slightly sub-theraputic, had skipped doses due to over shoot last week. Starting keflex and warm packs, will have him continue usual warfarin and recheck next week. Counseled Regarding: Diagnosis, Lab results, Need for follow-up, When/why to return to ED Discharge & Departure Primary Impression: Acute parotitis Disposition: Home Discharge Condition All VS Reviewed: Yes Condition: Stable Additional Instructions: Emergency Department evaluation today included interview, examination and labs. It appears thre is an inflamed salivary gland. The inflammation may be due to blockage or infeciton. I am going to start you on an antibiotic. Take cephalexen 500mg 4 times a day for 7 days. Use hard candies to promote salivation. Use a hot compress on the face to try to bring the swelling down. Protime is 1.89 today. It should be re-checked on monday. If your symptoms get worse, return to the Emergency Department. Follow up with your primary care physician next week. Referrals: Ej Goodwin DO (PCP) Deniseibjorje Attestation Portion of this note were transcribed by Heavenly Kerr. I, Dr. Medeiros, personally performed the history, physical exam, and medical decision-making: I reviewed and confirmed the accuracy for the information in the transcribed note. Signed by: geovany Morales, 07/22/16 2000 copies to: Ej Goodwin Donald L MD Jul 22, 2016 18:58 Heavenly Kerr Jul 22, 2016 19:06
[2016-07-22 19:49] LABS: BASOPHILS % (AUTO) 0.9 % (0-3); MONOCYTES % (AUTO) 20.9 % (4-12); Mean Corpuscular Hemoglobin 27.5 pg (27.0-35.0); Mean Corpuscular Volume 83.9 fL (81-100); NEUTROPHILS % (AUTO) 53.5 % (40-74); Platelet Count 149 bil/L (150-400)
[2016-07-22 20:05] LABS: INR 1.89 ratio
[2016-07-22] MEDS ORDERED: CEPH500C PO (21:19)
[2016-07-22 21:57] VITALS: BP 112/58; PULSE 58; RESP 18; O2SAT 95
[2016-07-22 22:00] VITALS: BP 112/58; PULSE 58; RESP 18; O2SAT 95
== END 2016-07-22 22:00 | disposition home or self-care (01) ==
LOC: SED 17:12
DX: K11.21 Acute sialoadenitis (principal); I13.0 Hypertensive heart and chronic kidney disease with heart failure and stage 1 through stage 4 chronic kidney disease, or unspecified chronic kidney disease; I50.30 Unspecified diastolic (congestive) heart failure; I25.10 Atherosclerotic heart disease of native coronary artery without angina pectoris; I48.91 Unspecified atrial fibrillation; N18.9 Chronic kidney disease, unspecified; E78.5 Hyperlipidemia, unspecified; Z95.0 Presence of cardiac pacemaker; Z95.1 Presence of aortocoronary bypass graft; Z79.82 Long term (current) use of aspirin; Z79.01 Long term (current) use of anticoagulants

== ENCOUNTER 2016-09-14 20:22 | Inpatient (IN) | payer MEDICARE, OTHER ==
[~2016-09-14] VITALS: Ht 175.3 cm; Wt 104.6 kg
[~2016-09-14 20:22] MED LIST changes: +CEPH500C PO
[2016-09-14 20:35] VITALS: BP 94/47; RESP 22; O2SAT 96
--- NOTE | 2016-09-14 20:43 | ED.REPORT ---
HPI-General Illness Date of Service September 14, 2016 ED Provider: Dr. Trevon Hayes MD An 86 year old male with a history of A-fib on Warfarin, chronic renal disease, CAD, hypertension, hyperlipidemia, ischemic heart disease, diastolic congestive heart failure, mitral valve regurgitation presents to the ED secondary to possible aspiration of pill or food just prior to arrival. Patient describes burning in his chest and discomfort in his throat following the incident. The chest pain was relieved by Nitro. reports recent productive cough that began a few days ago and worsening lower extremity edema with an erythematous, warm rash to the vigil. Nursing Notes Stated Complaint: ASPIRATED A PILL Chief Complaint: ENT & Mouth Nursing Notes Reviewed: Yes Allergies: Coded Allergies: No Known Allergies (Unverified , 09/15/16) Scheduled Ascorbic Acid (Vitamin C) 1,000 Mg Tab.chew 1,000 MG PO HS Aspirin (Aspirin) 81 Mg Tablet 81 MG PO QAM Atorvastatin (Lipitor) 20 Mg Tablet 20 MG PO HS Cholecalciferol (Vitamin D3) (Vitamin D3) 1,000 Unit Tab.chew 1,000 UNIT PO QAM Cyanocobalamin (Vitamin B-12) (Vitamin B-12) 5,000 Mcg Tab.rapdis 5,000 MCG PO QAM Docusate Sodium (Colace) 100 Mg Capsule 300 MG PO HS Finasteride (Finasteride) 5 Mg Tablet 5 MG PO QAM Isosorbide MN ER (Isosorbide MN ER) 30 Mg Tab.er.24h 30 MG PO QAM L. Rhamnosus GG/Inulin (Culturelle Capsule) 10 Billion Cell-200 Mg Cap.sprink 1 EACH PO QAM Metolazone (Metolazone) 2.5 Mg Tablet 2.5 MG PO QAM Metoprolol Succinate ER (Metoprolol Succinate ER) 50 Mg Tab.er.24h 75 MG PO BID [place]-3/Dha/Epa/Fish Oil (Fish Oil 1,000 mg Softgel) 1 Each Capsule 1 EACH PO QAM Oxycodone (Roxicodone) 5 Mg Tablet 5 MG PO HS Potassium Chloride (Potassium Chloride) 20 Meq Tab.er.prt 40 MEQ PO QAM POTASSIUM 40 MEQ IN AM, 20 MEQ IN PM. TAKE WITH FOOD. Potassium Chloride ER (Potassium Chloride ER) 20 Meq Tablet.er 20 MEQ PO DAILYWD POTASSIUM 40 MEQ IN AM, 20 MEQ IN PM. TAKE WITH FOOD. Sennosides (Senna) 8.6 Mg Tablet 25.8 MG PO HS Sertraline HCl (Sertraline) 25 Mg Tablet 12.5 MG PO HS Spironolactone (Spironolactone) 25 Mg Tablet 12.5 MG PO QAM Torsemide (Torsemide) 20 Mg Tablet 20 MG PO BIDWM Ubidecarenone (Coq-10) 100 Mg Capsule 300 MG PO HS Warfarin Sodium (Warfarin Sodium) 5 Mg Tablet 5 MG PO DAILY EXCEPT MON/MON TAKE 2.5 MG WARFARIN ON TU/TH AND 5 MG ALL OTHER DAYS Warfarin Sodium (Warfarin Sodium) 2.5 Mg Tablet 2.5 MG PO /TH TAKE 2.5 MG WARFARIN ON /TH AND 5 MG ALL OTHER DAYS Scheduled PRN Nitroglycerin SL (Nitroglycerin SL) 0.4 Mg Tab.subl 0.4 MG SL PRN For Chest Pain Oxycodone (Roxicodone) 5 Mg Tablet 5 MG PO BID PRN PRN For Pain General Time Seen by MD: 20:42 Chief Complaint Other (Possible Aspiration) Hx Obtained From: Patient Arrived By: Walk-in Sudden in Onset?: Yes Onset Occurred: Just prior to arrival Symptom Duration: Since onset Location: : Chest Quality: Burning Radiation: : Does not radiate Severity: Current: Mild Severity: Maximum: Mild Associated with: Reports: Chest pain, Cough Pertinent Negative: Pt denies other symptoms Recent Healthcare: No recent hospitalization, Recent doctor visit Past Medical History Past Medical History A-fib on Warfarin CAD Hypertension Hyperlipidemia Ischemic heart disease Bradycardia chronic kidney disease diastolic congestive heart failure mitral valve regurgitation Back pain Depression Past Surgical History CABG in 1998 Pacemaker 11/2013 Left knee arthroplasty Smoking History Unknown if Ever Smoker Social History Home health aide visits twice a week but expresses that she is reaching the limit of her ability to care for patient. She requires EMS to assist after falls. 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 Ambulatory Status Independent Review of Systems Full Review of Systems Ears / Nose / Throat: Reports: Throat pain (Discomfort) Respiratory: Reports: Prod cough, clear Cardiovascular: Reports: Chest pain (Chest discomfort) Complete sys rev & neg: except as marked. Physical Exam Vital Signs Vital Signs Date Time Temp Pulse Resp B/P Pulse Ox O2 Delivery O2 Flow Rate FiO2 09/14/16 20:35 36.8 64 22 94/47 96 Room Air Initial VS: Reviewed Neck: Supple, Non-tender, Full range of motion Extremities: Vascular intact, Neuro intact, No swelling, No tenderness Neurologic: Alert, Oriented, Nonfocal Psychiatric: Mood/affect normal, Behavior normal, Normal thought content General/Constitutional: Awake, Alert, No acute distress Head / Eyes: Atraumatic, Normocephalic ENT: Atraumatic, Airway patent Respiratory / Chest: Atraumatic, No respiratory distress Diminished Breath Sounds: Positive: Decreased bilateral RESPIRATORY: Crackles in lung bases Cardiovascular: Heart rate NL, Regular rhythm, Heart sounds NL Lower Ext Edema: Positive: Non-Pitting CARDIO: Hypotensive Abdomen: Atraumatic, Soft Skin: Warm, Dry Color / Condition: Positive: Erythema localized, Rash present Rash / Lesion Notes: Non blanching Interpretation & Diagnostics Lab Results Interpretation Result Diagram: 09/14/16210709/14/162107 Test 09/14/16 21:08 09/14/16 21:21 09/14/16 22:55 White Blood Count 5.1th/mm3 (3.8-10.1) Red Blood Count 4.06mil/mm3 (4.40-5.80) Hemoglobin 11.0g/dL (13.8-17.2) Hematocrit 33.2% (41.0-50.0) Mean Corpuscular Volume 81.8fL (81-100) Mean Corpuscular Hemoglobin 27.1pg (27.0-35.0) Mean Corpuscular Hemoglobin Concent 33.1% (32.0-37.0) Red Cell Distribution Width 19.3% (12.3-15.4) Platelet Count 133bil/L (150-400) Neutrophils (%) (Auto) 50.4% (40-74) Lymphocytes (%) (Auto) 21.0% (14-46) Monocytes (%) (Auto) 19.8% (4-12) Eosinophils (%) (Auto) 7.6% (0-5) Basophils (%) (Auto) 1.0% (0-3) Prothrombin Time 22.5sec (8.1-12.5) Prothromb Time International Ratio 2.07ratio Sodium Level 138mEq/L (134-144) Potassium Level 2.8mEq/L (3.5-5.2) Chloride Level 93mEq/L (97-108) Carbon Dioxide Level 30mmol/L (18-29) Blood Urea Nitrogen 52mg/dL (8-27) Creatinine 2.07mg/dL (0.76-1.27) Estimat Glomerular Filtration Rate 32mL/min (>59) Glucose Level 101mg/dL (60-99) Calcium Level 9.5mg/dL (8.5-10.1) Magnesium Level 2.2mg/dL (1.6-2.6) Total Bilirubin 1.6mg/dL (0.0-1.2) Aspartate Amino Transf (AST/SGOT) 27U/L (0-50) Alanine Aminotransferase (ALT/SGPT) 18U/L (0-44) Alkaline Phosphatase 145U/L (25-160) Troponin T 0.065ug/L (0.0-0.011) Total Protein 7.1g/dL (6.4-8.4) Albumin 3.4g/dL (3.4-5.0) Procalcitonin 0.14ng/mL (0.00-0.08) Lactic Acid Level 0.2mmol/L (0.4-2.0) Hold Lindsay Top Tube Received (Received) Hold Urine Received (Received) ECG Interpretation ECG Interpretation: A-fib Rate 60 Ventricular premature complex Nonspecific intreventricular conduction delay Time: 20:57 Interpreted by: ED physician X-Ray Chest Interpretation Chest Xray Interpretation: IMPRESSION: 1. Right basilar pneumonia versus atelectasis. 2. Mild left basilar atelectasis. 3. Small right pleural effusion. 4. No opaque foreign body is identified. Dictated by: Cesar Baxter M.D. on 09/14/2016 at 21:35 Interpretation / Wet Read by: Interpret - Radiologist Re-Eval/Medical Decision Time of Eval: 22:12 Patient Status: Condition improved Re-Evaluation/Progress Note: Patient is rechecked. Symptoms have improved. He is informed of his X-ray results, lab results and diagnosis. All of the patient's questions are addressed. He understands and agrees with the treatment plan. Consultation : Referral / Consult Name: Cony Collazo DO Consulted With: Hospitalist Call Returned at: 23:44 Restaurant Hourly Manager: Will see patient, Agrees with eval, Agrees with plan, Accepts admit Note: Discussed pt condition. Accepts admit. Counseled Regarding: Diagnosis, Lab results, Need for admission Discharge & Departure Primary Impression: Pneumonia Pneumonia type: due to unspecified organism Laterality: bilateral Lung location: lower lobe of lung Qualified Code: J18.9 - Pneumonia, unspecified organism Additional Impressions: Chest pain Chest pain type: unspecified Qualified Code: R07.9 - Chest pain, unspecified Aspiration into airway Encounter type: initial encounter Qualified Code: T17.908A - Unspecified foreign body in respiratory tract, part unspecified causing other injury, initial encounter Renal insufficiency Hypokalemia Cellulitis Site of cellulitis: extremity Site of cellulitis of extremity: lower extremity Laterality: left Qualified Code: L03.116 - Cellulitis of left lower limb Disposition: ADMITTED TO HOSPITAL Discharge Condition All VS Reviewed: Yes Condition: Improved Referrals: Ej Goodwin DO (PCP) Heather Attestation Portions of this note were transcribed by Ashly Jain and Kg Candelario. I, Dr. Hayes personally performed the history, physical exam and medical decision- making; I reviewed and confirmed the accuracy of the information in the transcribed note. Signed by: Heather Lee, 09/14/16 1905. Signed by: Heather Guerrero, 09/14/16 and 9239 copies to: Ej Goodwin Todd P DO September 14, 2016 20:43 ASHLY JAIN September 14, 2016 20:49 KG CANDELARIO September 14, 2016 23:44
[2016-09-14 21:12] LABS: EOSINOPHILS % (AUTO) 7.6 % (0-5); MONOCYTES % (AUTO) 19.8 % (4-12); Mean Corpuscular Hemoglobin 27.1 pg (27.0-35.0); Mean Corpuscular Volume 81.8 fL (81-100); NEUTROPHILS % (AUTO) 50.4 % (40-74); Platelet Count 133 bil/L (150-400)
[2016-09-14 21:28] LABS: INR 2.07 ratio
--- NOTE | 2016-09-14 21:40 | DRSVH ---
PROCEDURE: X-RAY CHEST ONE VIEW, PORTABLE ([id number]) INDICATIONS: Chest pain/foreign body TECHNIQUE: One view of the chest was acquired. COMPARISON: [facility], CR, XR CHEST 2VW, 06/10/2016, 8:45. [facility], CR, XR CHEST 1VW (PORTABLE), 11/17/2015, 18:03. FINDINGS: Surgical changes and devices: There is a cardiac pacemaker in expected position. Sternotomy and CABG. Lungs and pleura: There is right basilar consolidation and/or atelectasis. Mild left basilar atelect asis or scarring. A small right pleural effusion is present. No pneumothorax. Mediastinum: Mediastinal contours appear normal. Heart size is normal. Bones and chest wall: No suspicious bony lesions. Overlying soft tissues appear unremarkable. IMPRESSION: 1. Right basilar pneumonia versus atelectasis. 2. Mild left basilar atelectasis. 3. Small right pleural effusion. 4. No opaque foreign body is identified. Dictated by: Cesar Baxter M.D. on 09/14/2016 at 21:35 Approved by: Cesar Baxter M.D. on 09/14/2016 at 21:38
[2016-09-14 21:46] LABS: Magnesium 2.2 mg/dL (1.6-2.6)
[2016-09-14 21:49] LABS: TROPONIN T 0.065 ug/L (0.0-0.011)
[2016-09-14] MEDS ORDERED: 0.9% Sodium Chloride 500 ML IV ONE (22:10)
[2016-09-14] MEDS ORDERED: Piperacillin-Tazo 3.375 Gm Inj 3.375 GM in Dextrose 5% Minibag Plus 50 ML IV ONE (22:45)
[2016-09-14] MEDS ORDERED: LACT1CAP38 PO (23:21)
[2016-09-14] MEDS ORDERED: OXYC-474 PO (23:21)
[2016-09-14] MEDS ORDERED: ISOS30TA4 PO (23:21)
[2016-09-14] MEDS ORDERED: TORS20TA3 PO (23:21)
[2016-09-14] MEDS ORDERED: SPIR25TA3 PO (23:21)
[2016-09-14] MEDS ORDERED: ASCO100089 PO (23:21)
[2016-09-14] MEDS ORDERED: ATOR20TA PO (23:21)
[2016-09-14 23:35] VITALS: BP 102/45; PULSE 60; RESP 12; O2SAT 100
[2016-09-14] MEDS ORDERED: Potassium Chloride 20 mEq/15 mL 15mL Oral Soln PO ONE (23:45)
[2016-09-14 23:57] LABS: APPEARANCE,URINE CLEAR (CLEAR,HAZY); COLOR,URINE YELLOW (YELLOW); OCCULT BLOOD,URINE NEGATIVE (NEGATIVE); PH,URINE 5.5 (5.0-8.0); UROBILINOGEN,URINE NORMAL (NORMAL)
[2016-09-15] VITALS (9 sets, daily range): BP systolic 95–128; BP diastolic 60–79; PULSE 60–82; RESP 18–20; O2SAT 91–96
[2016-09-15] MEDS ORDERED: Ondansetron 2 mg/mL 2 mL Inj IVPUSH PRN ×2 (00:20→02:05)
[2016-09-15] MEDS ORDERED: Alum-Mag Hydrox-Simeth 30 mL Suspension PO PRN ×2 (00:20→02:05)
--- NOTE | 2016-09-15 01:20 | NUR ---
ADMIT NOTE Pt arrived to Room 3020 approx 0030. Pt alert & oriented, [place]. Pt very unsteady on feet, generally weak. Pt placed on remote telemetry, sound technician supervisor notified. VS obtained. Pt denies pain. Pt asked if he is in pain as he grunts frequently, pt states, "no I'm fine, I just grunt a lot." IV flushed, patent. Pt wearing pull up brief. Pt declines to change brief, states, "it's fresh." Pt declines assessment of groin and buttocks at this time. Pt has generalized bruising on bilateral arms. Pt has pitting edema bilaterally on LE. Rash noted on LLE, no open areas or drainage. Call light in reach. Bed alarm on. Intentional rounding.
[2016-09-15] MEDS ORDERED: Senna-Docusate 8.6-50 mg Tablet PO PRN (02:05)
[2016-09-15] MEDS ORDERED: Polyethylene Glycol (PEG) 17 Gm Powder PO PRN (02:05)
--- NOTE | 2016-09-15 02:54 | PCM.HPMED ---
Subjective Date of Service September 15, 2016 Primary Provider: Admitting Physician: Cony Collazo DO Primary Care Physician: Ej Goodwin DO Attending Physician: Cony Collazo DO Admit Status: From the Emergency Department Chief Complaint: aspiration History of Present Illness: An 86 year old male with a history of A-fib on Warfarin, chronic renal disease, CAD, hypertension, hyperlipidemia, ischemic heart disease, diastolic congestive heart failure, mitral valve regurgitation presents to the ED secondary to possible aspiration of pill or food just prior to arrival. Patient describes burning in his chest and discomfort in his throat following the incident. The chest pain was relieved by Nitro. reports recent productive cough that began a few days ago and worsening lower extremity edema with an erythematous, warm rash to the vigil. Gergory is a pleasant 86-year-old male with history of chronic A. fib on Coumadin, chronic kidney disease, CAD status post CABG, hypertension, ischemic cardiomyopathy, diastolic CHF, and BPH who presented to the ED for complaint of possible aspiration. He reports he was eating dinner earlier when he choked on a piece of meat, and thinks it may be lodged in his lungs. He reports some mild throat and chest burning, but denies any shortness of breath or vomiting. He reports his health is stable prior to this, but reports that there has been recent productive cough and his lower extremity edema continues to be hard to control and she has noticed an erythematous rash on the left pretibial region. Patient reports he has been taking his medications appropriately, he does have home health at home to assist in his ADLs. He has not noticed any recent fevers, increase in his LINARES, or headache. In the ED he was afebrile with a pulse of 64 and blood pressure 94/47 and saturating 96% on room air. CBC showed a white count of 5.1 and hemoglobin of 11 with a platelet of 133 His CMP showed a potassium of 2.8 BUN of 52 and creatinine 2.07 Total bili was 1.6 and troponin was 0.065, which was at his baseline UA was benign He had a portable chest x-ray showed right basilar consolidation and/or atelectasis. Patient was started on IV Zosyn for suspected pneumonia. He was also given 10 mEq of IV potassium in the ED Review of Systems: complete ROS obtained and neg except as stated in the HPI Allergies Coded Allergies: No Known Allergies (Unverified , 09/15/16) Home Medications From Deion Osman. [id number] 08/17/2016 02:50 PM 05/12 Aspirin 81 Mg Tablet 1 tablet by mouth daily Co Q-10 300 mg capsule take 1 capsule by oral route every day Durable Medical Equipment 4 Wheel Walker finasteride 5 mg tablet take 1 tablet by oral route every day Fish Oil 360 mg-1,200 mg capsule 1 capsule by mouth daily isosorbide mononitrate ER 30 mg tablet,extended release 24 hr take 1 tablet by oral route every day in the morning Keflex 500 mg capsule take 1 capsule by oral route every 6 hours Lipitor 40 mg tablet take 1 tablet by oral route every day metolazone 5 mg tablet take 1 tablet by oral route every other day metoprolol succinate ER 50 mg tablet,extended release 24 hr take 1.5 tablet by oral route 2 times every day nitroglycerin 0.4 mg sublingual tablet 1 tablet S/L prn Rpt q 5 min , if pain persists after 2 tabs seek medical attention oxycodone 5 mg tablet Take 1 tablet PO TID potassium chloride ER 20 mEq tablet,extended release take 2 capsules in the AM and 1 tab po qpm. Senna Lax 8.6 mg tablet take 2 tablet by oral route every day as needed for constipation sertraline 25 mg tablet take 1/2 tablet by oral route every night torsemide 20 mg tablet take 1 tablet by oral route 2 times every day Vitamin B-12 1000 Mcg 1 tablet by mouth daily Vitamin D 1000Mg 1 tablet by mouth daily warfarin 5 mg tablet take 1/2 tablet (2.5mg) daily except 1 tablet (5mg) MWF ty PMH Chronic atrial fibrillation on warfarin CAD status post CABG Pacemaker insertion Hyperlipidemia Ischemic heart disease Diastolic heart failure Chronic kidney disease Chronic low back pain Opiate-induced constipation Exertional dyspnea BPH Chronic low blood pressure Multiple ground-level falls Surgical History Bilateral knee replacement Basal cell carcinoma status post Mohs surgery Cardiac cath Family History No known history of cardiac disease in family Social History Hx Alcohol Use: No Hx Substance Use: No Hx Tobacco Use: Yes Smoking Status: Former Smoker (smoked a pack a day for 10 years) Living Arrangement: with Family Exam Vital Signs Vital Sign - Last Date Time Temp Pulse Resp B/P Pulse Ox O2 Delivery O2 Flow Rate FiO2 09/15/16 00:45 36.8 60 18 117/69 93 Room Air Intake and Output 09/14/16 09/14/16 09/15/16 Cumulative From/Thru 15:00 23:00 07:00 09/14/16 20:35 - 09/15/16 00:45 Intake Total 500 ml 500 ml Balance 500 ml 500 ml Intake IV Total 500 ml 500 ml Exam General: Elderly obese male who appears in no acute distress while laying at 30 in bed, alert and oriented 3 HEENT: PERRLA, EOMI, sclerae anicteric, oropharynx moist and pink, dentures in place Neck: Soft, nontender, no JVD noted CV: Irregularly Irregular with soft systolic murmur, peripheral radial pulses intact and equal Respiratory: CTA B, mild right-sided rhonchi, no wheezing, no crackles, normal respiratory effort Abdomen: Soft, mildly distended, mild tenderness to palpation of the left lower quadrant, stool masses palpable, hyperactive bowel sounds MSK: Muscle strength grossly intact and equal, no swollen or tender joints Extremities: 3+ pitting edema from feet to mid thigh bilaterally, mild erythema of left pretibial region Neuro: Grossly intact, face symmetric, speaks full influence and cyst, no focal weakness Skin: Diffuse bruising and ecchymosis on arms and upper chest, skin is warm and dry Psych: Appropriate mood and affect, linear thought process, cooperative Lab and Diagnostics Result Diagram: 09/14/16210709/14/162107 X-Rays, CTs and MRIs PROCEDURE: X-RAY CHEST ONE VIEW, PORTABLE ([id number]) IMPRESSION: 1. Right basilar pneumonia versus atelectasis. 2. Mild left basilar atelectasis. 3. Small right pleural effusion. 4. No opaque foreign body is identified. Assessment & Plan An 86 year old male with a history of A-fib on Warfarin, chronic renal disease, CAD, hypertension, hyperlipidemia, ischemic heart disease, diastolic congestive heart failure, mitral valve regurgitation presents to the ED secondary to possible aspiration of pill or food just prior to arrival. He is admitted for hypokalemia, NESTOR, and aspiration NESTOR in the setting of Chronic Kidney Disease, POA Patient's previous creatinine at baseline have been around 1.3 total 1.5. Patient's AKA likely due to hypovolemic state and diuretics nephrology consultation in the morning Patient was gently hydrated in the ED Check renal panel in a.m. Hypokalemia, POA K - 2.8 on admission. 10 meq IV given by ED. Patient is on 60meq total of oral potassium and also spironolactone. Monitor and replenish as appropriate Prolonged QT interval, POA QTc of 570 on EKG Avoid QT prolonging agents elevated troponin, chronic -h/o elevation -2/2 renal dysfnctn -trend Diastolic CHF, POA Does not appear in acute decompensation, but patient's legs are extremely edematous We will continue patient's metolazone, torsemide, spironolactone Strict I and O's and daily weight PT evaluation Sous Chef is Dr. Caldwell CAD s/p CABG, POA No acute ST changes on EKG EKG prn chest pain Placed on telemetry for CV monitoring Continue patient's home medication: ASA, statin Chronic Atrial Fibrillation on Coumadin, POA Currently stable Warfarin dosing per pharmacy Continue patient's metoprolol Food Aspiration, POA NPO until swallow evaluation Suspect that the right basilar opacity is likely due to his aspiration. Patient without any strong signs of infection. We will discontinue IV Zosyn and continue to monitor. PVD, POA Patient's left pretibial erythema likely due to his poor peripheral vascular status and copious pitting edema Continue to encourage elevating legs and using compression stockings BPH, POA Continue patient's home medication: Finasteride Constipation, POA We will continue patient's home bowel regimen aggressively Tylenol when necessary for fever/pain CODE STATUS: DO NOT RESUSCITATE/DO NOT INTUBATE Disposition: Patient is admitted under inpatient status with expected length of stay greater than 2 midnights due to risk of adverse events, decompensation, and medical complexity Pain Evaluation: Adequate Pain Control VTE Prophylaxis: Theraputic Anticoag with WarfarinBRANDY Resuscitation Status: DNR/DNI:Do Not Resuscitate/Intubate Attending Statement The patient was seen and examined together with house staff on 09/15/2016 and I have added additional information to the note above. Ej Goodwin DO September 15, 2016 02:16 Cony Collazo DO September 15, 2016 06:03
[2016-09-15 06:19] LABS: BASOPHILS % (AUTO) 0.8 % (0-3); EOSINOPHILS % (AUTO) 6.7 % (0-5); Mean Corpuscular Hemoglobin 26.5 pg (27.0-35.0); Mean Corpuscular Volume 81.5 fL (81-100); NEUTROPHILS % (AUTO) 48.9 % (40-74); Platelet Count 126 bil/L (150-400)
[2016-09-15 06:32] LABS: INR 1.97 ratio
[2016-09-15 07:19] LABS: TROPONIN T 0.066 ug/L (0.0-0.011)
[2016-09-15] MEDS ORDERED: KCl 40 mEq/D5W 500 mL 40 MEQ in IV Premix 1 EACH IV ONE (07:50)
[2016-09-15] MEDS: Lactobacillus Rhamnosus 10 Bil Unit Capsule PO SCH (08:53)
[2016-09-15] MEDS: Isosorbide Mononitrate 30 mg ER24 Tablet PO SCH (09:13)
[2016-09-15] MEDS: Sodium Chloride LOK Flush 10 mL Syringe IVFLUSH SCH ×2 (09:15→16:30)
[2016-09-15] MEDS: MeTOProlol XL 50 mg ER24 Tablet PO SCH ×2 (09:16→20:20)
[2016-09-15] MEDS ORDERED: Piperacillin-Tazo 3.375 Gm Inj 3.375 GM in Dextrose 5% Minibag Plus 50 ML IV SCH (09:30)
--- NOTE | 2016-09-15 10:15 | NUR ---
Evaluation completed. Please go to "Notes" then click on "Assessments and Notes" (bottom left corner of screen). Then select appropriate discipline tab on top of screen.
--- NOTE | 2016-09-15 11:39 | PCM.PHAPRO ---
Progress Warfarin Management by Pharmacy: -Indication: afib -Home Dose: (per h&p): warfarin 5mg on MoWeFr and 2.5mg all other days -Drug Interactions: none noted (sertraline, asa- platelets) -Disease Interactions: CHF -H/H 10.3/31.7 Platelets: 126 -Concurrent Anticoagulation: none -Inr today: 1.97 -Plan: pt is due for warfarin 2.5mg this evening. will give a slightly increased dose of 3.5mg and monitor Telma Santiago [facility] September 15, 2016 11:39
[2016-09-15] MEDS: Potassium Chloride 20 mEq SR Tablet PO SCH ×2 (12:09→17:57)
--- NOTE | 2016-09-15 14:01 | NUR ---
Evaluation completed. Please go to "Notes" then click on "Assessments and Notes" (bottom left corner of screen). Then select appropriate discipline tab on top of screen.
--- NOTE | 2016-09-15 15:47 | NUR ---
Social Work: Initial Assessment D: Per EMR review, pt is an 86 year old male admitted for pneumonia, cellulitis renal insufficiency. Pt is Medicare with [employer] supplement; pt has no LTC insurance or VA benefits. PCP is Ej Goodwin DO. NOK is Amber Kuhn, dtr, . Advanced directives completed- SALES ENABLEMENT MANAGER requested AD information for pt's chart. No readmit score entered at this time. SALES ENABLEMENT MANAGER met with pt and at bedside. Sw role explained and contact info provided. See initial assessment. Pt and spouse live in [place] in a single story home with ramp access. Pt is currently open with [facility] for RN, PT and a PHYSICAL SECURITY MANAGER. Pt currently uses a FWW and does not drive. Pt has never had skilled rehab. PT evaluation is pending. SALES ENABLEMENT MANAGER provided pt and spouse with HH/SNF CHOICE LIST- preference is to resume [facility]. Pt does not wish to discuss SNF at this time and states he wishes to go home. Pt's will transport when ready. t/c to Germain Dillard with [facility] to notify of admission; access provided. A: Pt who lives at home with his and is open with [facility] P: Evolving; Pt wishes to d/c home with resumed [facility] for RN, PT, PHYSICAL SECURITY MANAGER with his spouse to transport; SALES ENABLEMENT MANAGER to follow up with PT recommendations once completed. CRISTIAN Ochoa Addendum: 09/15/16 at 1555 by KOJO MACHADO Amended: Links added.
--- NOTE | 2016-09-15 16:38 | NUR ---
Cellulitis: Patients left vigil has cellulitis. The area has pitting edema, is warm to the tough shiny and red. The area has been marked with a line to evaluate improvement or worsening condition. Patient has had his legs elevated on pillows in bed for most of the day. He continues to be on diuretics with an adequate urinary output.
[2016-09-16] VITALS (9 sets, daily range): BP systolic 92–119; BP diastolic 55–70; PULSE 58–80; RESP 20; O2SAT 95–96
[2016-09-16] MEDS: Sodium Chloride LOK Flush 10 mL Syringe IVFLUSH SCH ×3 (00:57→16:34)
--- NOTE | 2016-09-16 01:30 | NUR ---
Dry Skin Pt complained of itching, dry skin. He kept scratching at arms until they bled. I cleaned up pts arms and applied calmoseptine to help with the dryness and itching. He was instructed to use the call light when they itched so that more calmoseptine could be applied in order to prevent any skin breakage.
[2016-09-16 06:31] LABS: Mean Corpuscular Volume 81.2 fL (81-100)
[2016-09-16 06:41] LABS: INR 1.62 ratio
[2016-09-16 07:50] LABS: TROPONIN T 0.075 ug/L (0.0-0.011)
[2016-09-16] MEDS ORDERED: KCl 40 mEq/D5W 500 mL 40 MEQ in IV Premix 1 EACH IV ONE (08:30)
[2016-09-16] MEDS ORDERED: Potassium Chloride 20 mEq SR Tablet PO ONE (08:30)
[2016-09-16] MEDS: Potassium Chloride 20 mEq SR Tablet PO SCH ×2 (08:37→16:33)
[2016-09-16] MEDS: Lactobacillus Rhamnosus 10 Bil Unit Capsule PO SCH (08:40)
[2016-09-16] MEDS: Isosorbide Mononitrate 30 mg ER24 Tablet PO SCH (10:03)
--- NOTE | 2016-09-16 11:54 | PCM.PHAPRO ---
Progress Date of Service: September 16, 2016 Hgb/hct = 10.5/31.6, plts 133. INR = 1.62 Pt continues on warfarin therapy for afib. Goal INR = 2-3. Pt's INR is subtherapeutic today at 1.62. Will give warfarin 5mg PO tonight. INR ordered. Pharmacy will continue to follow this pt's warfarin therapy. Date September 16-September INR 1.97 1.62 INR change -0.35 Warf Dose 3.5MG 5MG Carin Nance S PharmD September 16, 2016 11:54
[2016-09-16 11:59] LABS: Creatine Kinase 40 U/L (21-232)
[2016-09-16] MEDS: MeTOProlol XL 50 mg ER24 Tablet PO SCH ×2 (12:01→20:30)
[2016-09-16 12:04] LABS: TROPONIN T 0.078 ug/L (0.0-0.011)
--- NOTE | 2016-09-16 16:02 | NUR ---
Cellulitis/Renal Insufficiency/Edema/afib Cellulitis to BLE, noted Left vigil greater the Right vigil. Noted cellulitis and edema has decreased from yesterday when assessing line markings for improvement. Edema noted to BLE, thighs, abdomen and bilateral flank. History of Renal insufficiency. Denied SOB at rest but reported SOB with exertion, SpO2 96% RA. Triponin continues to be elevated at 0.078 related to volume overload. Fluid retention treated with diuretics, noted frequent voiding. K+ levels continue to be low at 3.0 this am, increased dose of potassium, lab results ongoing. History of Afib, INR 1.62 this am, new order to increase Coumadin to 5 mg Daily.
--- NOTE | 2016-09-16 16:26 | PCM.PNMED ---
Subjective Date of Service September 16, 2016 Subjective Patient was seen and examined at bedside today. Patient denies any chest pain, shortness of breath, nausea, vomiting, diarrhea. Patient's lower extremity edema has improved significantly. Overnight events: None Exam Vital Signs Vital Sign - Last Date Time Temp Pulse Resp B/P Pulse Ox O2 Delivery O2 Flow Rate FiO2 09/16/16 14:03 36.4 62 20 119/69 96 Room Air Intake and Output 09/15/16 09/15/16 09/16/16 Cumulative From/Thru 15:00 23:00 07:00 09/14/16 20:35 - 09/16/16 06:44 Intake Total 1400 ml 400 ml 2300 ml Output Total 850 ml 1200 ml 2051 ml Balance 550 ml -800 ml 249 ml Intake Oral 900 ml 400 ml 1300 ml IV Total 500 ml 1000 ml Output Urine Total 850 ml 1200 ml 2050 ml Emesis 1 ml # Voids 3 4 # Bowel Movements 0 0 0 Exam Physical Exam: GEN: Patient was awake, alert, responding appropriately to questions HEENT: Pupils equal round and reactive to light, extraocular eye muscles intact , Neck soft supple, trachea midline, nomocephalic/atraumatic CV: +S1/S2, regular rate and rhythm, no murmurs auscultated Respiratory: CTAB, no wheezes, rales, rhonchi GI: +bowel sounds x4, soft, compressible, nontender to palpation EXT: +2 pitting edema bilaterally, lower extremity erythema has improved significantly Neuro: Cranial nerves II-XII grossly intact Psych: mood and affect were appropriate IVs and Medications Medications Reviewed: Medications were reviewed in detail Lab and Diagnostics Result Diagram: 09/16/1655 09/16/16 0555 X-Rays, CTs and MRIs PROCEDURE: X-RAY CHEST ONE VIEW, PORTABLE ([id number]) IMPRESSION: 1. Right basilar pneumonia versus atelectasis. 2. Mild left basilar atelectasis. 3. Small right pleural effusion. 4. No opaque foreign body is identified. Assessment & Plan An 86 year old male with a history of A-fib on Warfarin, chronic renal disease, CAD, hypertension, hyperlipidemia, ischemic heart disease, diastolic congestive heart failure, mitral valve regurgitation presents to the ED secondary to possible aspiration of pill or food just prior to arrival. He is admitted for hypokalemia, NESTOR, and aspiration NESTOR in the setting of Chronic Kidney Disease, POA (resolving) -Patient's previous creatinine at baseline have been around 1.3-1.5. -Patient's current creatinine is 1.93 trending down -Continue to monitor Hypokalemia, POA -Potassium is 3.0 trending up -Replaced with 40 mEq IV, and 80 mEq by mouth -Hold metolazone Prolonged QT interval, POA QTc of 570 on EKG Avoid QT prolonging agents Elevated troponin, chronic -History of troponin elevation -2/2 renal dysfnctn -Troponins are relatively stable continue to trend Diastolic CHF exacerbation, POA -ProBNP is 5726 -Continue with diuresis torsemide by mouth daily -Strict I's and O's and daily weights -We will continue to diuresis the patient as it seems to be resolving the patient's symptoms -PT evaluation Flight Engineer Performance Qualified is Dr. Caldwell CAD s/p CABG, POA -No acute ST changes on EKG -EKG prn chest pain -Placed on telemetry for CV monitoring -Continue patient's home medication: ASA, statin Chronic Atrial Fibrillation on Coumadin, POA Currently stable Warfarin dosing per pharmacy Continue patient's metoprolol Food Aspiration, POA NPO until swallow evaluation Suspect that the right basilar opacity is likely due to his aspiration. Patient without any strong signs of infection. We will discontinue IV Zosyn and continue to monitor. PVD, POA Patient's left pretibial erythema likely due to his poor peripheral vascular status and copious pitting edema Continue to encourage elevating legs and using compression stockings BPH, POA Continue patient's home medication: Finasteride Constipation, POA We will continue patient's home bowel regimen aggressively Tylenol when necessary for fever/pain CODE STATUS: DO NOT RESUSCITATE/DO NOT INTUBATE Disposition: The patient seems to be responding well to diuresis. We will continue to diurese the patient at this time. The patient has elevated troponins however this troponins more like a troponin leak. We will continue to monitor however if the patient's troponins continued to remain the same this is just the patient's current baseline as he does have a history of elevated troponins. This seems more to be like a troponin leak secondary to demand ischemia as opposed to an acute SC or an NSTEMI. VTE Prophylaxis: Theraputic Anticoag with WarfarinBRANDY VTE Mechanical Devices: Venous Foot Pump Resuscitation Status: DNR/DNI:Do Not Resuscitate/Intubate Abigail Leslie DO September 16, 2016 16:15
[2016-09-17] VITALS (7 sets, daily range): BP systolic 101–122; BP diastolic 7–73; PULSE 58–67; RESP 14–20; O2SAT 95–97
[2016-09-17] MEDS: Sodium Chloride LOK Flush 10 mL Syringe IVFLUSH SCH ×3 (00:30→16:50)
[2016-09-17 06:20] LABS: Mean Corpuscular Hemoglobin 26.6 pg (27.0-35.0); Mean Corpuscular Volume 81.8 fL (81-100)
[2016-09-17 06:24] LABS: INR 1.55 ratio
[2016-09-17 06:39] LABS: Magnesium 2.3 mg/dL (1.6-2.6)
[2016-09-17 06:48] LABS: TROPONIN T 0.071 ug/L (0.0-0.011)
--- NOTE | 2016-09-17 09:00 | PCM.PHAPRO ---
Progress HCT/PLTL = 31.1/121 INR = 1.55 Pt continues on warfarin therapy for afib. Goal INR = 2-3. INR subtherapeutic today at 1.55 PLAN: * give bolus dose warfarin 1.5 x regular daily dose (5mg) = 7.5mg PO tonight * check INR again tomorrow * Pharmacy will continue to follow warfarin therapy Date September 16-September 17-September INR 1.97 1.62 1.55 INR change -0.35 -0.07 Warf Dose 3.5MG 5MG 7.5MG Gissell Ashby Pharm.D September 17, 2016 09:00
--- NOTE | 2016-09-17 09:00 | NUR ---
[facility] signed CRISTIAN Napier
[2016-09-17] MEDS: Isosorbide Mononitrate 30 mg ER24 Tablet PO SCH (09:01)
[2016-09-17] MEDS: Potassium Chloride 20 mEq SR Tablet PO SCH ×2 (09:01→16:49)
[2016-09-17] MEDS: Lactobacillus Rhamnosus 10 Bil Unit Capsule PO SCH (09:02)
[2016-09-17] MEDS: MeTOProlol XL 50 mg ER24 Tablet PO SCH ×2 (09:02→20:07)
--- NOTE | 2016-09-17 15:50 | PCM.PNMED ---
Subjective Date of Service September 17, 2016 Subjective Patient was seen and examined at bedside today. Patient denies any chest pain, shortness of breath, nausea, vomiting, diarrhea. Patient states that he is feeling much improved Overnight events: None Exam Vital Signs Vital Sign - Last Date Time Temp Pulse Resp B/P Pulse Ox O2 Delivery O2 Flow Rate FiO2 09/17/16 11:26 62 09/17/16 10:50 36.7 20 102/64 95 Room Air Intake and Output 09/16/16 09/16/16 09/17/16 Cumulative From/Thru 15:00 23:00 07:00 09/14/16 20:35 - 09/17/16 05:12 Intake Total 444 ml 2744 ml Output Total 2051 ml Balance 444 ml 693 ml Intake Oral 1300 ml IV Total 444 ml 1444 ml Output Urine Total 2050 ml Emesis 1 ml # Voids 4 # Bowel Movements 0 Exam Physical Exam: GEN: Patient was awake, alert, responding appropriately to questions HEENT: Pupils equal round and reactive to light, extraocular eye muscles intact , Neck soft supple, trachea midline, nomocephalic/atraumatic CV: +S1/S2, regular rate and rhythm, no murmurs auscultated, but distant heart sounds secondary to body habitus Respiratory: CTAB, no wheezes, rales, rhonchi GI: +bowel sounds x4, soft, compressible, nontender to palpation EXT: no clubbing, cyanosis, +1 pitting edema in the lower extremity is bilaterally significantly improved Neuro: Cranial nerves II-XII grossly intact Psych: mood and affect were appropriate IVs and Medications Medications Reviewed: Medications were reviewed in detail Lab and Diagnostics Result Diagram: 09/17/16 0545 09/17/16 0545 X-Rays, CTs and MRIs PROCEDURE: X-RAY CHEST ONE VIEW, PORTABLE ([id number]) IMPRESSION: 1. Right basilar pneumonia versus atelectasis. 2. Mild left basilar atelectasis. 3. Small right pleural effusion. 4. No opaque foreign body is identified. Assessment & Plan An 86 year old male with a history of A-fib on Warfarin, chronic renal disease, CAD, hypertension, hyperlipidemia, ischemic heart disease, diastolic congestive heart failure, mitral valve regurgitation presents to the ED secondary to possible aspiration of pill or food just prior to arrival. He is admitted for hypokalemia, NESTOR, and aspiration NESTOR in the setting of Chronic Kidney Disease, POA (resolving) -Patient's previous creatinine at baseline have been around 1.3-1.5. -Patient's current creatinine is 2 this may seem to be the patient's new baseline -Continue to monitor Hypokalemia, POA -Potassium is 3.0 trending up -Decreased diuresis to Lasix 40 mg by mouth daily -Continue to hold metolazone Prolonged QT interval, POA QTc of 570 on EKG Avoid QT prolonging agents Elevated troponin, chronic -History of troponin elevation -2/2 renal dysfnctn -Troponins are relatively stable trending down Diastolic CHF exacerbation, POA -ProBNP is 5726 -Diuresis with Lasix by mouth -Strict I's and O's and daily weights -We will continue to diuresis the patient as it seems to be resolving the patient's symptoms -PT evaluation Polysomnographer is Dr. Caldwell CAD s/p CABG, POA -No acute ST changes on EKG -EKG prn chest pain -Placed on telemetry for CV monitoring -Continue patient's home medication: ASA, statin Chronic Atrial Fibrillation on Coumadin, POA Currently stable Warfarin dosing per pharmacy Continue patient's metoprolol Food Aspiration, POA Swallow eval obtained and cleared patient able to eat general diet with no resections for swallowing Suspect that the right basilar opacity is likely due to his aspiration. Patient without any strong signs of infection. We will discontinue IV Zosyn and continue to monitor. PVD, POA Patient's left pretibial erythema likely due to his poor peripheral vascular status and copious pitting edema Continue to encourage elevating legs and using compression stockings BPH, POA Continue patient's home medication: Finasteride Constipation, POA We will continue patient's home bowel regimen aggressively Tylenol when necessary for fever/pain CODE STATUS: DO NOT RESUSCITATE/DO NOT INTUBATE Disposition: The patient seems to be responding well to diuresis. We will continue to diurese the patient at this time. Due to some medication changes the patient will stay 1 more night. As long as the patient tolerates this medication change he will be stable and ready for discharge tomorrow. VTE Prophylaxis: Theraputic Anticoag with Warfarin, BRANDY Hose VTE Mechanical Devices: Venous Foot Pump Resuscitation Status: DNR/DNI:Do Not Resuscitate/Intubate Abigail Leslie DO September 17, 2016 15:50
[2016-09-17] MEDS ORDERED: Warfarin 5 MG, Warfarin 2.5 MG PO ONE ×2 (17:00)
[2016-09-18] VITALS (11 sets, daily range): BP systolic 95–113; BP diastolic 54–69; PULSE 60–64; RESP 16–18; O2SAT 93–97
[2016-09-18] MEDS: Sodium Chloride LOK Flush 10 mL Syringe IVFLUSH SCH ×4 (00:07→22:34)
--- NOTE | 2016-09-18 03:03 | NUR ---
Cellulitis and Dry Skin Pt has very dry skin over arms. He reported no discomfort or itching. I instructed him to let me know if there was any discomfort so that more calmoseptine could be applied to prevent any breaks in the skin. Cellulitis on right vigil also examined and appeared to be decreasing in size. Pt reported no discomfort from that either.
[2016-09-18 07:09] LABS: INR 1.64 ratio
--- NOTE | 2016-09-18 08:04 | PCM.PHAPRO ---
Progress Pt continues on warfarin therapy for afib. Goal INR = 2-3. INR subtherapeutic today at 1.64 PLAN: * dose warfarin 1.5 x regular daily dose (5mg) = 7.5mg PO tonight * check INR again tomorrow * Pharmacy will continue to follow warfarin therapy Date September 16-September 17-September 18-September INR 1.97 1.62 1.55 1.64 INR change -0.35 -0.07 0.09 Warf Dose 3.5MG 5MG 7.5MG 7.5MG Gissell Ashby Pharm.D September 18, 2016 08:04
[2016-09-18] MEDS: Lactobacillus Rhamnosus 10 Bil Unit Capsule PO SCH (08:51)
[2016-09-18] MEDS: Isosorbide Mononitrate 30 mg ER24 Tablet PO SCH (08:52)
[2016-09-18] MEDS: MeTOProlol XL 50 mg ER24 Tablet PO SCH ×2 (08:52→19:22)
[2016-09-18] MEDS: Potassium Chloride 20 mEq SR Tablet PO SCH ×2 (08:53→16:37)
--- NOTE | 2016-09-18 15:13 | NUR ---
Social Work: Continued d/c planning Data: Pt is on day 4 of hospitalization. EMR reviewed. PT recommending SNF, pt walking 15 ft at this time. Pt reported to PT that they want to go home with HH. PUBLIC RELATIONS WRITER will follow up with pt regarding PT recommendation. Plan: Pt will d/c home with resume [facility] or SNF if they decide to go to SNF. PUBLIC RELATIONS WRITER will follow up with pt regarding PT recommendation. CRISTIAN Napier
--- NOTE | 2016-09-18 15:20 | PCM.PNMED ---
Subjective Date of Service September 18, 2016 Subjective Patient was seen and examined at bedside today. Patient denies any chest pain, shortness of breath, nausea, vomiting, diarrhea. Overnight events: None Exam Vital Signs Vital Sign - Last Date Time Temp Pulse Resp B/P Pulse Ox O2 Delivery O2 Flow Rate FiO2 09/18/16 14:20 36.4 63 18 100/54 97 Room Air Intake and Output 09/17/16 09/17/16 09/18/16 Cumulative From/Thru 15:00 23:00 07:00 09/14/16 20:35 - 09/18/16 06:10 Intake Total 1325 ml 636 ml 740 ml 5445 ml Output Total 800 ml 836 ml 350 ml 4037 ml Balance 525 ml -200 ml 390 ml 1408 ml Intake Oral 1325 ml 636 ml 740 ml 4001 ml IV Total 1444 ml Output Urine Total 800 ml 836 ml 350 ml 4036 ml Emesis 1 ml # Voids 2 2 8 # Bowel Movements 0 Exam Physical Exam: GEN: Patient was awake, alert, responding appropriately to questions HEENT: Pupils equal round and reactive to light, extraocular eye muscles intact , Neck soft supple, trachea midline, nomocephalic/atraumatic CV: +S1/S2, regular rate and rhythm, Respiratory: CTAB, no wheezes, rales, rhonchi GI: +bowel sounds x4, soft, compressible, nontender to palpation EXT: no clubbing, cyanosis, +1 pitting edema improved from yesterday, no further signs of cellulitis or erythema developing Neuro: Cranial nerves II-XII grossly intact Psych: mood and affect were appropriate IVs and Medications Medications Reviewed: Medications were reviewed in detail Lab and Diagnostics Result Diagram: 09/17/16 0545 09/18/16 0634 X-Rays, CTs and MRIs PROCEDURE: X-RAY CHEST ONE VIEW, PORTABLE ([id number]) IMPRESSION: 1. Right basilar pneumonia versus atelectasis. 2. Mild left basilar atelectasis. 3. Small right pleural effusion. 4. No opaque foreign body is identified. Assessment & Plan An 86 year old male with a history of A-fib on Warfarin, chronic renal disease, CAD, hypertension, hyperlipidemia, ischemic heart disease, diastolic congestive heart failure, mitral valve regurgitation presents to the ED secondary to possible aspiration of pill or food just prior to arrival. He is admitted for hypokalemia, NESTOR, and aspiration NESTOR in the setting of Chronic Kidney Disease, POA (resolving) -Patient's previous creatinine at baseline have been around 1.3-1.5. -Patient's current creatinine is 2 this may seem to be the patient's new baseline -Patient's creatinine is trending up once again -Continue to monitor Hypokalemia, POA (resolving) -Potassium is 3. 6 currently stable -Restart torsemide 20 mg by mouth daily -Continue to hold metolazone -Continue to monitor Prolonged QT interval, POA QTc of 570 on EKG Avoid QT prolonging agents Elevated troponin, chronic -History of troponin elevation -2/2 renal dysfnctn -Troponins are relatively stable trending down Diastolic CHF exacerbation, POA -ProBNP is 5726 -Continue diuresis with torsemide by mouth -Strict I's and O's and daily weights -We will continue to diuresis the patient as it seems to be resolving the patient's symptoms -PT evaluation Corporate Development Associate is Dr. Caldwell CAD s/p CABG, POA -No acute ST changes on EKG -EKG prn chest pain -Placed on telemetry for CV monitoring -Continue patient's home medication: ASA, statin Chronic Atrial Fibrillation on Coumadin, POA Currently stable Warfarin dosing per pharmacy Continue patient's metoprolol Food Aspiration, POA Swallow eval obtained and cleared patient able to eat general diet with no resections for swallowing Suspect that the right basilar opacity is likely due to his aspiration. Patient without any strong signs of infection. We will discontinue IV Zosyn and continue to monitor. PVD, POA Patient's left pretibial erythema likely due to his poor peripheral vascular status and copious pitting edema Continue to encourage elevating legs and using compression stockings BPH, POA Continue patient's home medication: Finasteride Constipation, POA We will continue patient's home bowel regimen aggressively Tylenol when necessary for fever/pain CODE STATUS: DO NOT RESUSCITATE/DO NOT INTUBATE Disposition: The patient seems to be responding well to diuresis. However with the change of medication it seems like the patient prefers to torsemide. We will restart torsemide at this time and is on is the patient's creatinine once again started to trend down in his potassium remained stable he should be ready for discharge home tomorrow. VTE Prophylaxis: Theraputic Anticoag with Warfarin, BRANDY Song VTE Mechanical Devices: Venous Foot Pump Resuscitation Status: DNR/DNI:Do Not Resuscitate/Intubate Abigail Leslie DO September 18, 2016 15:20
[2016-09-19] VITALS (7 sets, daily range): BP systolic 107–114; BP diastolic 63–69; PULSE 60–65; RESP 16–18; O2SAT 94–97
[2016-09-19 07:15] LABS: INR 1.97 ratio
[2016-09-19] MEDS: Lactobacillus Rhamnosus 10 Bil Unit Capsule PO SCH (09:14)
[2016-09-19] MEDS: Potassium Chloride 20 mEq SR Tablet PO SCH ×2 (09:14→17:20)
[2016-09-19] MEDS: Isosorbide Mononitrate 30 mg ER24 Tablet PO SCH (09:14)
[2016-09-19] MEDS: MeTOProlol XL 50 mg ER24 Tablet PO SCH ×2 (09:14→20:16)
[2016-09-19] MEDS: Sodium Chloride LOK Flush 10 mL Syringe IVFLUSH SCH ×2 (09:15→17:19)
--- NOTE | 2016-09-19 10:52 | NUR ---
Social Work: Readiness for Discharge Data: Pt is on day 5 of hospitalization. EMR reviewed. PT recommending SNF, pt walking 15 ft at this time. Per morning rounds pt will be medically ready to discharge possibly tomorrow. Pt reported to PT that they want to go home with HH. GAURANG spoke to pt at bedside who stated he is now agreeable to a SNF but would like to give preferences. SW called Noemi who stated that she was driving to a doctor's appt and asked that SW call back later. SW will follow up with for SNF preferences. Assessment: Pt who resides at home with and would benefit from SNF Plan: Pt will likely d/c to SNF if they decide to go to SNF. SW to follow up with re: SNF choices. CRISTIAN Gardner Addendum: 09/19/16 at 1411 by MENA BLANKENSHIP SS GAURANG spoke to pt's Mishel who provided SNF preferences: first choice [facility] and second choice [facility]. Board Saw Runner to send referrals. CRISTIAN Gardner
--- NOTE | 2016-09-19 11:12 | PCM.PHAPRO ---
Progress Date of Service: September 19, 2016 Warfarin management Date September 16-September 17-September 18-September 19-September INR 1.97 1.62 1.55 1.64 1.97 INR change -0.35 -0.07 0.09 0.33 Warf Dose 3.5MG 5MG 7.5MG 7.5MG 5MG A/ Patient is nearly therapeutic with an INR of 1.97. P/ Resume home dosing of warfarin with 5mg today and reassess tomorrow with AM labs. Omar Lancaster September 19, 2016 11:11
--- NOTE | 2016-09-19 19:30 | PCM.PNMED ---
Subjective Date of Service September 19, 2016 Subjective Patient was seen and examined at bedside today. Patient denies any chest pain, shortness of breath, nausea, vomiting, diarrhea. Overnight events: Exam Vital Signs Vital Sign - Last Date Time Temp Pulse Resp B/P Pulse Ox O2 Delivery O2 Flow Rate FiO2 09/19/16 13:53 36.7 60 16 109/66 95 Room Air Intake and Output 09/18/16 09/18/16 09/19/16 Cumulative From/Thru 15:00 23:00 07:00 09/14/16 20:35 - 09/19/16 05:37 Intake Total 637 ml 320 ml 6402 ml Output Total 500 ml 600 ml 5137 ml Balance 137 ml -280 ml 1265 ml Intake Oral 637 ml 320 ml 4958 ml IV Total 1444 ml Output Urine Total 500 ml 600 ml 5136 ml Emesis 1 ml # Voids 2 10 # Bowel Movements 1 1 Exam Physical Exam: GEN: Patient was awake, alert, responding appropriately to questions HEENT: Pupils equal round and reactive to light, extraocular eye muscles intact , Neck soft supple, trachea midline, nomocephalic/atraumatic CV: +S1/S2, regular rate and rhythm, Respiratory: CTAB, no wheezes, rales, rhonchi GI: +bowel sounds x4, soft, compressible, nontender to palpation EXT: no clubbing, cyanosis, +1 pitting edema, no further signs of cellulitis or erythema developing Neuro: Cranial nerves II-XII grossly intact Psych: mood and affect were appropriate IVs and Medications Medications Reviewed: Medications were reviewed in detail Lab and Diagnostics Result Diagram: 09/17/16 0545 09/19/16 0625 X-Rays, CTs and MRIs PROCEDURE: X-RAY CHEST ONE VIEW, PORTABLE ([id number]) IMPRESSION: 1. Right basilar pneumonia versus atelectasis. 2. Mild left basilar atelectasis. 3. Small right pleural effusion. 4. No opaque foreign body is identified. Assessment & Plan An 86 year old male with a history of A-fib on Warfarin, chronic renal disease, CAD, hypertension, hyperlipidemia, ischemic heart disease, diastolic congestive heart failure, mitral valve regurgitation presents to the ED secondary to possible aspiration of pill or food just prior to arrival. He is admitted for hypokalemia, NESTOR, and aspiration NESTOR in the setting of Chronic Kidney Disease, POA (resolving) -Patient's previous creatinine at baseline have been around 1.3-1.5. -Patient's current creatinine is 2 this may seem to be the patient's new baseline -Patient's creatinine is trending up once again -Continue to monitor Hypokalemia, POA (resolving) -Potassium is 3. 6 currently stable -Restart torsemide 20 mg by mouth daily -Continue to hold metolazone -Continue to monitor Prolonged QT interval, POA QTc of 570 on EKG Avoid QT prolonging agents Elevated troponin, chronic -History of troponin elevation -2/2 renal dysfnctn -Troponins are relatively stable trending down Diastolic CHF exacerbation, POA -ProBNP is 5726 -Continue diuresis with torsemide by mouth -Strict I's and O's and daily weights -We will continue to diuresis the patient as it seems to be resolving the patient's symptoms -PT evaluation Slag Skimmer is Dr. Caldwell CAD s/p CABG, POA -No acute ST changes on EKG -EKG prn chest pain -Placed on telemetry for CV monitoring -Continue patient's home medication: ASA, statin Chronic Atrial Fibrillation on Coumadin, POA Currently stable Warfarin dosing per pharmacy Continue patient's metoprolol Food Aspiration, POA Swallow eval obtained and cleared patient able to eat general diet with no resections for swallowing Suspect that the right basilar opacity is likely due to his aspiration. Patient without any strong signs of infection. We will discontinue IV Zosyn and continue to monitor. PVD, POA Patient's left pretibial erythema likely due to his poor peripheral vascular status and copious pitting edema Continue to encourage elevating legs and using compression stockings BPH, POA Continue patient's home medication: Finasteride Constipation, POA We will continue patient's home bowel regimen aggressively Tylenol when necessary for fever/pain CODE STATUS: DO NOT RESUSCITATE/DO NOT INTUBATE Disposition: The patient seems to be responding well to diuresis. Patient's creatinine improved with the usage of torsemide and it was felt that the patient was ready to go home however physical therapy evaluated the patient and as the patient is very weak and unable to do stairs he is unable to go home and is not safe. At this time the patient's is looking for jail facilities and the patient should be ready for discharge tomorrow if any of them except him. VTE Prophylaxis: Theraputic Anticoag with Warfarin, BRANDY Hose VTE Mechanical Devices: Venous Foot Pump Resuscitation Status: DNR/DNI:Do Not Resuscitate/Intubate Abigail Leslie DO September 19, 2016 19:30
[2016-09-20] MEDS: Sodium Chloride LOK Flush 10 mL Syringe IVFLUSH SCH ×2 (00:30→08:30)
[2016-09-20 01:32] VITALS: BP 103/63; PULSE 58; RESP 18; O2SAT 94
[2016-09-20 06:10] VITALS: BP 106/63; PULSE 57; RESP 16; O2SAT 92
--- NOTE | 2016-09-20 06:18 | NUR ---
Uneventful Night: Pt rested intermittently through the night with no complaints of pain or discomfort. Denies discomfort r/t skin dryness. SOB with exertion. No complaints of n/v. Forgetful at times. Non slip socks and bed alarm on for safety. Call light within reach,using appropriately. Frequent rounding in place. Pleasant and cooperative with care.
[2016-09-20 07:28] LABS: INR 2.16 ratio
--- NOTE | 2016-09-20 09:26 | NUR ---
Faxed referral to [facility] per FORENSIC SCIENTIST. Spoke with Taylor in admissions and let her know patient is likely ready to discharge today. Addendum: 09/20/16 at 0934 by YAERD CUETO [facility] can accept patient today with to follow. Updated FORENSIC SCIENTIST Addendum: 09/20/16 [facility] 1201 [facility] Faxed orders to [facility] and place copy in chart. [facility] will transport between 1330 and 1400. Updated FORENSIC SCIENTIST
[2016-09-20] MEDS: Potassium Chloride 20 mEq SR Tablet PO SCH (10:06)
[2016-09-20] MEDS: Isosorbide Mononitrate 30 mg ER24 Tablet PO SCH (10:06)
[2016-09-20] MEDS: Lactobacillus Rhamnosus 10 Bil Unit Capsule PO SCH (10:06)
[2016-09-20] MEDS: MeTOProlol XL 50 mg ER24 Tablet PO SCH (10:07)
[2016-09-20 10:29] VITALS: PULSE 65
[2016-09-20 10:39] VITALS: BP 118/71; PULSE 61; RESP 16; O2SAT 95
[2016-09-20] MEDS ORDERED: METO-272 PO (11:40)
--- NOTE | 2016-09-20 11:44 | PCM.DIMED ---
Discharge Instructions Date of Service September 20, 2016 Dates of Hospitalization September 14, 2016 at 23:12 Discharge Diagnosis Discharge Diagnosis Acute on chronic kidney disease Hypokalemia (resolved). Prolonged QT interval Chronically elevated troponins Diastolic CHF exacerbation History of CAD status post CABG (currently stable) Chronic atrial fibrillation on Coumadin Peripheral vascular disease (chronic) BPH Constipation Medication Instructions Your metoprolol medication has been decreased to 50 mg twice a day Diet No restrictions (patient is able to eat a general diet) Activity No restrictions (gradually return to normal daily activities patient should participate in physical therapy while at the group home facility) Call your provider Shortness of breath, Bleeding, Vomitting, Excessive diarrhea, Weakness ( unilateral) Patient Instructions [facility] Prec[facility] L DO September 20, 2016 11:44
--- NOTE | 2016-09-20 11:55 | PCM.DC.MED ---
Discharge Summary Date of Service September 20, 2016 Dates of Hospitalization Date of Hospital Admission September 14, 2016 at 23:12 Date of Discharge: September 20, 2016 Providers: Admitting Physician: Cony Collazo DO Primary Care Physician: Ej Goodwin DO Attending Physician: Cony Collazo DO Diagnosis at Time of Discharge Diagnosis at Time of Discharge Acute on chronic kidney disease Hypokalemia (resolved). Prolonged QT interval Chronically elevated troponins Diastolic CHF exacerbation History of CAD status post CABG (currently stable) Chronic atrial fibrillation on Coumadin Peripheral vascular disease (chronic) BPH Constipation Procedures XRay, CTs & MRIs PROCEDURE: X-RAY CHEST ONE VIEW, PORTABLE ([id number]) IMPRESSION: 1. Right basilar pneumonia versus atelectasis. 2. Mild left basilar atelectasis. 3. Small right pleural effusion. 4. No opaque foreign body is identified. Brief History An 86 year old male with a history of A-fib on Warfarin, chronic renal disease, CAD, hypertension, hyperlipidemia, ischemic heart disease, diastolic congestive heart failure, mitral valve regurgitation presents to the ED secondary to possible aspiration of pill or food just prior to arrival. Patient describes burning in his chest and discomfort in his throat following the incident. The chest pain was relieved by Nitro. reports recent productive cough that began a few days ago and worsening lower extremity edema with an erythematous, warm rash to the vigil. Gregory is a pleasant 86-year-old male with history of chronic A. fib on Coumadin, chronic kidney disease, CAD status post CABG, hypertension, ischemic cardiomyopathy, diastolic CHF, and BPH who presented to the ED for complaint of possible aspiration. He reports he was eating dinner earlier when he choked on a piece of meat, and thinks it may be lodged in his lungs. He reports some mild throat and chest burning, but denies any shortness of breath or vomiting. He reports his health is stable prior to this, but reports that there has been recent productive cough and his lower extremity edema continues to be hard to control and she has noticed an erythematous rash on the left pretibial region. Patient reports he has been taking his medications appropriately, he does have home health at home to assist in his ADLs. He has not noticed any recent fevers, increase in his LINARES, or headache. In the ED he was afebrile with a pulse of 64 and blood pressure 94/47 and saturating 96% on room air. CBC showed a white count of 5.1 and hemoglobin of 11 with a platelet of 133 His CMP showed a potassium of 2.8 BUN of 52 and creatinine 2.07 Total bili was 1.6 and troponin was 0.065, which was at his baseline UA was benign He had a portable chest x-ray showed right basilar consolidation and/or atelectasis. Patient was started on IV Zosyn for suspected pneumonia. He was also given 10 mEq of IV potassium in the ED Hospital Course An 86 year old male with a history of A-fib on Warfarin, chronic renal disease, CAD, hypertension, hyperlipidemia, ischemic heart disease, diastolic congestive heart failure, mitral valve regurgitation presents to the ED secondary to possible aspiration of pill or food just prior to arrival. He is admitted for hypokalemia, NESTOR, and aspiration The patient was admitted for lower extremity edema and acute kidney injury. There were some concerns that the patient was developing a left lower extremity cellulitis; however, once the patient was diuresed the erythema and area of concern for cellulitis spontaneously resolved. There were some concerns that patient may have an aspiration pneumonia however barium swallow was done and was found that the patient has no restrictions for swallowing. The patient has been doing well with diuresis however his metolazone has been stopped and his beta ibis has been decreased from 75 mg twice a day to 50 mg twice a day as he was running very bradycardic and being bradycardic being over diuresed potentially precipitated some of the patient's concerns. As the patient was ready for discharge did seem that the patient had decreased in mobility and was unable to do stairs which was necessary in order for him to be able to return home. After discussing things with the patient's and was found out that it seemed that he was too much for her to take care of her at this time and unless he continues to progress and able to transport himself he may need further long-term care. The patient is being discharged to [facility] in stable condition. Please see below for full hospital course: NESTOR in the setting of Chronic Kidney Disease, POA (resolving) -Patient's previous creatinine at baseline have been around 1.3-1.5. -Patient's current creatinine is 2 this may seem to be the patient's new baseline -Patient's creatinine is trending up once again -Continue to monitor Hypokalemia, POA (resolving) -Potassium is 3. 6 currently stable -Restart torsemide 20 mg by mouth daily -Continue to hold metolazone -Continue to monitor Prolonged QT interval, POA QTc of 570 on EKG Avoid QT prolonging agents Elevated troponin, chronic -History of troponin elevation -2/2 renal dysfnctn -Troponins are relatively stable trending down Diastolic CHF exacerbation, POA -ProBNP is 5726 -Continue diuresis with torsemide by mouth -Strict I's and O's and daily weights -We will continue to diuresis the patient as it seems to be resolving the patient's symptoms -PT evaluation Supervisor Laundry is Dr. Caldwell CAD s/p CABG, POA -No acute ST changes on EKG -EKG prn chest pain -Placed on telemetry for CV monitoring -Continue patient's home medication: ASA, statin Chronic Atrial Fibrillation on Coumadin, POA Currently stable Warfarin dosing per pharmacy Continue patient's metoprolol Food Aspiration, POA Swallow eval obtained and cleared patient able to eat general diet with no resections for swallowing Suspect that the right basilar opacity is likely due to his aspiration. Patient without any strong signs of infection. We will discontinue IV Zosyn and continue to monitor. PVD, POA Patient's left pretibial erythema likely due to his poor peripheral vascular status and copious pitting edema Continue to encourage elevating legs and using compression stockings BPH, POA Continue patient's home medication: Finasteride Constipation, POA We will continue patient's home bowel regimen aggressively Tylenol when necessary for fever/pain CODE STATUS: DO NOT RESUSCITATE/DO NOT INTUBATE Disposition: The patient seems to be responding well to diuresis. Patient's creatinine improved with the usage of torsemide and it was felt that the patient was ready to go home however physical therapy evaluated the patient and as the patient is very weak and unable to do stairs he is unable to go home and is not safe. At this time the patient's is looking for long-term facilities and the patient should be ready for discharge tomorrow if any of them except him. Exam Vital Signs (Last) Date Time Temp Pulse Resp B/P Pulse Ox O2 Delivery O2 Flow Rate FiO2 09/20/16 10:39 36.4 61 16 118/71 95 Room Air Exam Physical Exam: GEN: Patient was awake, alert, responding appropriately to questions HEENT: Pupils equal round and reactive to light, extraocular eye muscles intact , Neck soft supple, trachea midline, nomocephalic/atraumatic CV: +S1/S2, regular rate and rhythm, positive systolic murmur grade 4/6 auscultated Respiratory: CTAB, no wheezes, rales, rhonchi GI: +bowel sounds x4, soft, compressible, nontender to palpation EXT: no clubbing, cyanosis, +2 pitting edema no signs of cellulitis or erythema noted Neuro: Cranial nerves II-XII grossly intact Psych: mood and affect were appropriate Test 09/14/16 21:21 09/14/16 22:55 09/14/16 23:37 09/15/16 05:50 Lactic Acid Level 0.2mmol/L (0.4-2.0) Hold Lindsay Top Tube Received (Received) Hold Urine Received (Received) Urine Color Yellow (YELLOW) Urine Appearance Clear (CLEAR,HAZY) Urine pH 5.5 (5.0-8.0) Urine Specific [place] 1.010 (1.003-1.035) Urine Protein Negativemg/dL (NEG,TRACE) Urine Glucose (UA) Negativemg/dL (NEGATIVE) Urine Ketones Negativemg/dL (NEGATIVE) Urine Occult Blood Negative (NEGATIVE) Urine Nitrite Negative (NEGATIVE) Urine Bilirubin Negative (NEGATIVE) Urine Urobilinogen Normalmg/dL (NORMAL) Urine Leukocyte Esterase Negative (NEGATIVE) Urine RBC 0-2/hpf (0-2) Urine WBC 0-5/hpf (0-5) Urine Epithelial Cells Occasional/hpf (NONE-MOD) Urine Crystals None seen (NONE SEEN) Urine Bacteria None/hpf (NONE-FEW) Urine Hyaline Casts 5/20/lpf (NONE) Urine Granular Casts None seen (NONE SEEN) Urine Waxy Casts None seen (NONE SEEN) Urine Red Blood Cell Casts None seen (NONE SEEN) Urine White Blood Cell Casts None seen (NONE SEEN) Urine Mucus None seen (None Seen) Urine Trichomonas None seen (NONE SEEN) Urine Yeast None (NONE SEEN) Urinalysis Comment None Urine Culture Reflexed Not indicated Neutrophils (%) (Auto) 48.9% (40-74) Lymphocytes (%) (Auto) 22.4% (14-46) Monocytes (%) (Auto) 21.0% (4-12) Eosinophils (%) (Auto) 6.7% (0-5) Basophils (%) (Auto) 0.8% (0-3) Phosphorus Level 4.0mg/dL (2.5-4.9) Procalcitonin 0.14ng/mL (0.00-0.08) Test 09/16/16 11:00 09/17/16 05:45 09/20/16 06:32 Total Creatine Kinase 40U/L (21-232) Creatine Kinase MB 1.3ng/mL (0.0-10.4) Creatine Kinase MB % % (0.0-5.0) Pro-B-Type Natriuretic Peptide 5726pg/mL (0-486) White Blood Count 5.1th/mm3 (3.8-10.1) Red Blood Count 3.79mil/mm3 (4.40-5.80) Hemoglobin 10.1g/dL (13.8-17.2) Hematocrit 31.0% (41.0-50.0) Mean Corpuscular Volume 81.8fL (81-100) Mean Corpuscular Hemoglobin 26.6pg (27.0-35.0) Mean Corpuscular Hemoglobin Concent 32.6% (32.0-37.0) Red Cell Distribution Width 19.6% (12.3-15.4) Platelet Count 121bil/L (150-400) Magnesium Level 2.3mg/dL (1.6-2.6) Total Bilirubin 1.7mg/dL (0.0-1.2) Aspartate Amino Transf (AST/SGOT) 27U/L (0-50) Alanine Aminotransferase (ALT/SGPT) 18U/L (0-44) Alkaline Phosphatase 139U/L (25-160) Troponin T 0.071ug/L (0.0-0.011) Total Protein 6.2g/dL (6.4-8.4) Albumin 3.3g/dL (3.4-5.0) Prothrombin Time 23.5sec (8.1-12.5) Prothromb Time International Ratio 2.16ratio Sodium Level 136mEq/L (134-144) Potassium Level 3.8mEq/L (3.5-5.2) Chloride Level 97mEq/L (97-108) Carbon Dioxide Level 26mmol/L (18-29) Blood Urea Nitrogen 55mg/dL (8-27) Creatinine 1.92mg/dL (0.76-1.27) Estimat Glomerular Filtration Rate 35mL/min (>59) Glucose Level 120mg/dL (60-99) Calcium Level 9.0mg/dL (8.5-10.1) Discharge Medications Discharge Medications Ascorbic Acid (Vitamin C) 1,000 Mg Tab.chew 1,000 MG PO HS (Reported) Aspirin (Aspirin) 81 Mg Tablet 81 MG PO QAM (Reported) Atorvastatin (Lipitor) 20 Mg Tablet 20 MG PO HS (Reported) Cholecalciferol (Vitamin D3) (Vitamin D3) 1,000 Unit Tab.chew 1,000 UNIT PO QAM (Reported) Cyanocobalamin (Vitamin B-12) (Vitamin B-12) 5,000 Mcg Tab.rapdis 5,000 MCG PO QAM (Reported) Docusate Sodium (Colace) 100 Mg Capsule 300 MG PO HS (Reported) Finasteride (Finasteride) 5 Mg Tablet 5 MG PO QAM (Reported) Isosorbide MN ER (Isosorbide MN ER) 30 Mg Tab.er.24h 30 MG PO QAM (Reported) L. Rhamnosus GG/Inulin (Culturelle Capsule) 10 Billion Cell-200 Mg Cap.sprink 1 EACH PO QAM (Reported) Metoprolol Succinate ER (Metoprolol Succinate ER) 50 Mg Tab.er.24h 50 MG PO BID Prescribed by: MARTHA VALLADARES DO [place]-3/Dha/Epa/Fish Oil (Fish Oil 1,000 mg Softgel) 1 Each Capsule 1 EACH PO QAM (Reported) Oxycodone (Roxicodone) 5 Mg Tablet 5 MG PO HS (Reported) Potassium Chloride (Potassium Chloride) 20 Meq Tab.er.prt 40 MEQ PO QAM ( Reported) POTASSIUM 40 MEQ IN AM, 20 MEQ IN PM. TAKE WITH FOOD. Potassium Chloride ER (Potassium Chloride ER) 20 Meq Tablet.er 20 MEQ PO DAILYWD (Reported) POTASSIUM 40 MEQ IN AM, 20 MEQ IN PM. TAKE WITH FOOD. Sennosides (Senna) 8.6 Mg Tablet 25.8 MG PO HS (Reported) Sertraline HCl (Sertraline) 25 Mg Tablet 12.5 MG PO HS (Reported) Spironolactone (Spironolactone) 25 Mg Tablet 12.5 MG PO QAM (Reported) Torsemide (Torsemide) 20 Mg Tablet 20 MG PO BIDWM (Reported) Ubidecarenone (Coq-10) 100 Mg Capsule 300 MG PO HS (Reported) Warfarin Sodium (Warfarin Sodium) 5 Mg Tablet 5 MG PO DAILY EXCEPT MON/MON ( Reported) TAKE 2.5 MG WARFARIN ON /TH AND 5 MG ALL OTHER DAYS Warfarin Sodium (Warfarin Sodium) 2.5 Mg Tablet 2.5 MG PO TUES/THURS (Reported) TAKE 2.5 MG WARFARIN ON TUES/THURS AND 5 MG ALL OTHER DAYS As needed Nitroglycerin SL (Nitroglycerin SL) 0.4 Mg Tab.subl 0.4 MG SL PRN For Chest Pain (Reported) Oxycodone (Roxicodone) 5 Mg Tablet 5 MG PO BID PRN PRN For Pain (Reported) Additional med instructions Your metoprolol medication has been decreased to 50 mg twice a day Followup Plan Discharge Diet: No restrictions (patient is able to eat a general diet) Discharge Activity: No restrictions (gradually return to normal daily activities patient should participate in physical therapy while at the long-term facility) Follow-up Provider: SHERRON LEACH Time spent Greater than 35 minutes copies to: Ej Goodwin Precious L DO September 20, 2016 11:55
--- NOTE | 2016-09-20 13:18 | NUR ---
Social Work: Readiness for Discharge Data: Pt is on day 6 of hospitalization. EMR reviewed. Pt is medically ready to discharge today per morning rounds. PT recommending SNF. Pt is accepted at [facility] with wheelchair van to transport at 1330. SW updated pt and Mishel who was in the room. SW updated attending RN. All updated and agreeable to plan. No further needs assessed. Assessment: Pt who resides at home with and would benefit from SNF Plan: Pt will D/C to [facility] via wheelchair van at 1330. No further needs assessed. CRISTIAN Gardner
--- NOTE | 2016-09-20 13:56 | NUR ---
Social Work: Discharge Data: Pt is on day 6 of hospitalization. EMR reviewed. Pt is medically ready to discharge today per morning rounds. PT recommending SNF. Pt is accepted at [facility] with wheelchair van to transport at 1330. GAURANG updated pt and Mishel who was in the room. GAURANG updated attending RN. All updated and agreeable to plan. No further needs assessed. Assessment: Pt who resides at home with and would benefit from SNF Plan: Pt will D/C to [facility] via wheelchair van at 1330. No further needs assessed. CRISTIAN Gardner Addendum: 09/20/16 at 1357 by MENA BLANKENSHIP GAURANG faxed DC orders to [facility]. CRISTIAN Gardner
--- NOTE | 2016-09-20 14:06 | NUR ---
Discharge Patient departed unit via wheelchair, accompanied by transporter and staff. Patient alert and oriented at discharge and aware of transfer to [facility]. Patient displayed good appetite consuming 90%+ of meals. Urination good with periods of incontinence. Patient had a bowel movement prior to discharge. Patient continues to require a 1 person assist with a gait belt and front wheel walker to the bathroom. Cellulitis continues to be visible on Lt vigil, but improved. Discharge instructions/medications reviewed with patient prior to discharge. All questions addressed. Discharge instructions, patient belongings and prescriptions given to transporter.
== END 2016-09-20 14:00 | DRG 682 ==
LOC: EDBD 20:22 → SED 20:22 → OBSVTOIN 23:12 → MPC 23:12
PROVIDERS: ADMIT Internal Medicine; ATTEND Internal Medicine
DX: N17.9 Acute kidney failure, unspecified (principal); I50.33 Acute on chronic diastolic (congestive) heart failure; J69.0 Pneumonitis due to inhalation of food and vomit; I48.92 Unspecified atrial flutter; I24.8 Other forms of acute ischemic heart disease; Z79.01 Long term (current) use of anticoagulants; N40.0 Benign prostatic hyperplasia without lower urinary tract symptoms; I25.10 Atherosclerotic heart disease of native coronary artery without angina pectoris; Z95.1 Presence of aortocoronary bypass graft; E78.5 Hyperlipidemia, unspecified; E87.6 Hypokalemia; I73.9 Peripheral vascular disease, unspecified; Z87.891 Personal history of nicotine dependence; T17.920A Food in respiratory tract, part unspecified causing asphyxiation, initial encounter; I12.9 Hypertensive chronic kidney disease with stage 1 through stage 4 chronic kidney disease, or unspecified chronic kidney disease; N18.9 Chronic kidney disease, unspecified

== ENCOUNTER 2016-10-25 16:00 | Inpatient (IN) | payer MEDICARE, OTHER ==
[~2016-10-25] VITALS: Ht 175.3 cm; Wt 118.6 kg
[~2016-10-25 16:00] MED LIST changes: +ASCO100089 PO; +ATOR20TA PO; -CEPH500C PO; +ISOS30TA4 PO; +LACT1CAP38 PO; -LIP40 PO; -MELA5TAB14 PO; -METO2.5T12 PO; +SPIR25TA3 PO; -imdur PO
[2016-10-25 16:04] VITALS: BP 106/69; PULSE 62; RESP 16; O2SAT 96
[2016-10-25 16:23] VITALS: BP 115/77; PULSE 60; RESP 14; O2SAT 100
[2016-10-25 16:52] LABS: BASOPHILS % (AUTO) 0.9 % (0-3); EOSINOPHILS % (AUTO) 6.8 % (0-5); MONOCYTES % (AUTO) 22.6 % (4-12); Mean Corpuscular Hemoglobin 26.5 pg (27.0-35.0); NEUTROPHILS % (AUTO) 53.4 % (40-74); Platelet Count 170 bil/L (150-400)
[2016-10-25 17:08] LABS: INR 3.44 ratio
[2016-10-25 17:27] LABS: Magnesium 2.1 mg/dL (1.6-2.6)
[2016-10-25 17:30] LABS: TROPONIN T 0.07 ug/L (0.0-0.011)
--- NOTE | 2016-10-25 17:47 | DRSVH ---
PROCEDURE: X-RAY CHEST ONE VIEW, PORTABLE ([id number]) INDICATIONS: chf exac TECHNIQUE: One view of the chest was acquired. COMPARISON: [facility], , CHEST 2 VIEW, 09/27/2016, 13:54. FINDINGS: Surgical changes and devices: Status post CABG procedure. Single lead cardiac pacer is stable. Lungs and pleura: Small bilateral pleural fluid collections noted. Bibasilar opacities noted. Mediastinum: Mediastinal contours appear normal. Heart size is normal. Bones and chest wall: No suspicious bony lesions. Overlying soft tissues appear unremarkable. IMPRESSION: 1. Small bilateral pleural fluid collections. 2. Bibasilar opacities compatible with atelectasis, pneumonia or aspiration. Dictated by: Emilie Saavedra MD, PhD on 10/25/2016 at 17:44 Approved by: Emilie Saavedra MD, PhD on 10/25/2016 at 17:45
[2016-10-25 18:02] VITALS: BP 103/59; PULSE 60; RESP 17; O2SAT 96
--- NOTE | 2016-10-25 18:08 | ED.REPORT ---
HPI-General Illness Date of Service Oct 25, 2016 ED Provider: Jimmy Mccann MD Patient is an 86 year old male with a hx of CHF, chronic kidney disease, and afib on Warfarin who presents to the ED from [facility] for severe diastolic HF with LE edema that extends up to his groin. Per , he has had a diminished mental status with hallucinations, and increased agitation and confusion onset 3 weeks ago, getting worse gradually without notable alleviating or exacerbating factors. He also fell 3 weeks ago onto his L side. Per , he is not experiencing vomiting, fever, or any other symptoms. He has been at [facility] for 33 days and has not made any progress. It was determined that he needs a higher level of care which is why he was brought to the department. He was hospitalized at our hospital a month ago for 6 days for pneumonia. He is still having trouble swallowing from his previous hospitalization. He was given lorazepam just prior to arrival. Patient is DNR. Nursing Notes Stated Complaint: HEART Chief Complaint: General Complaint Nursing Notes Reviewed: Yes Allergies: Coded Allergies: No Known Allergies (Unverified , 10/25/16) Scheduled Aspirin (Aspirin) 81 Mg Tablet 81 MG PO QAM Atorvastatin (Lipitor) 20 Mg Tablet 20 MG PO HS Calcitonin Leroy (Miacalcin) 30 [place]/3.7 Ml Nasalspr 1 SPRAY NA DAILY [place] in 1 Nostril (Alternating Nostrils) Daily Cephalexin (Keflex) 500 Mg Capsule 500 MG PO QID Cholecalciferol (Vitamin D3) (Vitamin D3) 1,000 Unit Tab.chew 1,000 UNIT PO QAM Cyanocobalamin (Vitamin B-12) (Vitamin B-12) 5,000 Mcg Tab.rapdis 5,000 MCG PO QAM Docusate Sodium (Colace) 100 Mg Capsule 250 MG PO HS Finasteride (Finasteride) 5 Mg Tablet 5 MG PO QAM L. Rhamnosus GG/Inulin (Culturelle Capsule) 10 Billion Cell-200 Mg Cap.sprink 1 EACH PO QAM Metolazone (Metolazone) 5 Mg Tablet 5 MG PO DAILY Metoprolol Succinate ER (Metoprolol Succinate ER) 25 Mg Tab.er.24h 25 MG PO BID [place]-3/Dha/Epa/Fish Oil (Fish Oil 1,000 mg Softgel) 1 Each Capsule 1 EACH PO QAM Potassium Chloride ER (Potassium Chloride ER) 20 Meq Tablet.er 40 MEQ PO TIDWM Sennosides (Senna) 8.6 Mg Tablet 25.8 MG PO HS Spironolactone (Spironolactone) 25 Mg Tablet 12.5 MG PO DAILY Torsemide (Torsemide) 20 Mg Tablet 60 MG PO DAILY Ubidecarenone (Coq-10) 100 Mg Capsule 300 MG PO HS Warfarin Sodium (Warfarin Sodium) 3 Mg Tablet 3 MG PO DAILY Scheduled PRN Acetaminophen (Acetaminophen) 325 Mg Capsule 650 MG PO Q8H PRN PRN For Pain Bisacodyl (Dulcolax) 5 Mg Tablet.dr 5-10 MG PO DAILY PRN PRN For Constipation Bisacodyl (Dulcolax Rectal) 10 Mg Supp.rect 10 MG RC DAILY PRN PRN SEVERE CONSTIPATION Lactobacillus Acidophilus (Acidophilus Lactobacillus) 1 Each Capsule 1 EACH PO BID PRN PRN ANTIOBIOTIC USE Lorazepam (Lorazepam) 0.5 Mg Tablet 0.5 MG PO Q6H PRN PRN For Anxiety Magnesium Hydroxide (Milk of Magnesia) 400 Mg/5 Ml Oral.susp Unknown Dose PO DAILY PRN PRN For Constipation Na Phos,M-B/Na Phos,Di-Ba (Fleet Enema) 133 Ml Enema 133 ML RC DAILY PRN PRN SEVERE CONSTIPATION Nitroglycerin SL (Nitroglycerin SL) 0.4 Mg Tab.subl 0.4 MG SL PRN For Chest Pain Tramadol (Tramadol) 50 Mg Tablet 25-50 MG PO Q6H PRN PRN For Pain Miscellaneous Medications Ascorbic Acid (Vitamin C) 500 Mg Capsule.er 1,000 MG PO General Time Seen by MD: 16:26 Transferred From: Rehab facility Chief Complaint Other (Lower Extremity Edema ) Hx Obtained From: Spouse Arrived By: Ambulance Sudden in Onset?: No Onset Occurred: Onset unknown Symptom Duration: Since onset Location: : Leg left: Leg right Severity: Current: No pain currently Severity: Maximum: No pain Associated with: Denies: Fever Context Related History: Reports Coronary artery disease Recent Healthcare: Recent hospitalization Similar Sx Previous: Yes Past Medical History Past Medical History Notes: Patient is [place] Past Medical History A-fib on Warfarin CAD with previous IA Hypertension Hyperlipidemia Ischemic heart disease Bradycardia chronic kidney disease diastolic congestive heart failure mitral valve regurgitation Back pain Depression Past Surgical History CABGx3 Pacemaker 11/2013 Bilat knee replacements Smoking History Former Smoker Social History Home health aide visits twice a week but expresses that she is reaching the limit of her ability to care for patient. She requires EMS to assist after falls. 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 Ambulatory Status Independent Review of Systems ROS that was able to be obtained from noted in HPI. Unable to perform ROS from the patient secondary to patient's mental status. Unable to Obtain ROS Mental status Physical Exam Nursing note and vitals reviewed. Constitutional: Obese. Somnolent. Not diaphoretic. Head: Normocephalic and atraumatic. Mouth/Throat: Oropharynx is clear. Mucosa dry. No oropharyngeal exudate. Eyes: EOM are normal. Pupils are equal, round, and reactive to light. Neck: Supple, no tracheal deviation. Cardiovascular: Normal rate, regular rhythm. Somewhat diminished cap refill in feet bilaterally but pulses present. Pulmonary/Chest: Effort normal. No respiratory distress. Crackles at lung bases. Abdominal: Soft. Mild distention. There is no tenderness, rebound, or guarding. Musculoskeletal: Range of motion grossly intact. Marked swelling with 2+ pitting edema with erythema to bilateral lower extremities. Erythema from distal lower extremities spreading up towards groin but not including groin. : No signs of necrosis or infection to perineum. Markedly swollen testicles. Neurological: Intermittently alert. Oriented x2 but slow to respond. Grossly nonfocal strength and sensation throughout though limited by patient cooperation. Skin: Erythema to distal lower extremities up towards groin as noted above. No other rashes appreciated. Psychiatric: Unable to assess 2/2 mental status. Vital Signs Vital Signs Date Time Temp Pulse Resp B/P Pulse Ox O2 Delivery O2 Flow Rate FiO2 10/25/16 18:02 60 17 103/59 96 Room Air 10/25/16 16:23 36.0 60 14 115/77 100 Room Air 10/25/16 16:04 35.8 62 16 106/69 96 Room Air Interpretation & Diagnostics Lab Results Interpretation Result Diagram: 10/26/16 0535 10/26/16 0535 Test 10/25/16 16:35 Activated Partial Thromboplast Time 43.0sec (22.8-33.0) Magnesium Level 2.1mg/dL (1.6-2.6) Troponin T 0.070ug/L (0.0-0.011) Pro-B-Type Natriuretic Peptide 9881pg/mL (0-486) ECG Interpretation ECG Interpretation: no sig change from previous V paced complexes no acute ischemic changes rate 60 Time: 18:11 Interpreted by: ED physician ABG Interpretation ABG Interpretation: pH 7.467 pCO2 35 pO2 69.0 cHCO3- 25.4 cBase 1.6 Exam Performed by: Allied health pract Exam Interpreted by: ED physician X-Ray Chest Interpretation Chest Xray Interpretation: IMPRESSION: 1. Small bilateral pleural fluid collections. 2. Bibasilar opacities compatible with atelectasis, pneumonia or aspiration. Dictated by: Emilie Saavedra MD, PhD on 10/25/2016 at 17:44 Approved by: Emilie Saavedra MD, PhD on 10/25/2016 at 17:45 View: Portable, 1 view Interpretation / Wet Read by: Interpret - Radiologist CT Head Interpretation IMPRESSION: No acute intracranial disease process. Dictated by: Emilie Saavedra MD, PhD on 10/25/2016 at 20:11 Approved by: Emilie Saavedra MD, PhD on 10/25/2016 at 20:12 Study: Head CT no contrast Interpretation / Wet Read by: Interpret - Radiologist Re-Eval/Medical Decision Med Decision/Clinical Course 86 yo M w/ complex PMHx including CHF p/w BLE swelling and erythema spreading up towards his groin in the setting of progressively worsening mental status over the past several days to weeks. No chest pain; EKG w/o evidence of acute ischemic changes. Not dyspneic. Does have some mild crackles to bilateral lung bases. Laboratory studies reviewed. Concern that his mental status may be worsening at least in part secondary to cellulitis with hematogenous spread, despite being present bilaterally. Started on broad spectrum antibiotics here in the ED. Plan admission for further evaluation and management. Time of Eval: 18:43 Re-Evaluation/Progress Note: Discussed plan for admission. Patient and understand and agree with plan. All questions addressed at this time. Consultation : Referral / Consult Name: Tomas Carrillo MD Call Returned at: 19:19 Chefs: Will see patient, Agrees with eval, Agrees with plan, Accepts admit Note: Discussed pt's case. Accepts admit. Counseled Regarding: Diagnosis, Lab results, Need for admission Discharge & Departure Primary Impression: CHF exacerbation Congestive heart failure type: unspecified congestive heart failure type Qualified Code: I50.9 - Heart failure, unspecified Disposition: ADMITTED TO HOSPITAL Discharge Condition All VS Reviewed: Yes Condition: Stable Referrals: Ej Goodwin DO (PCP) Meche Marley MD Scribe Attestation Portions of this note were transcribed by Lona Islas. I, Dr. Mccann personally performed the history, physical exam and medical decision-making; I reviewed and confirmed the accuracy of the information in the transcribed note. Signed by: Lona Islas 10/25/162017 copies to: Meche Marley MD; Ej Goodwin William B MD Oct 25, 2016 18:07 LONA ISLAS Oct 25, 2016 18:15 ECG Interpretation ECG Interpretation: no sig change from previous V paced complexes no acute ischemic changes rate 60 Time: 18:11 Interpreted by: ED physician ABG Interpretation ABG Interpretation: pH 7.467 pCO2 35 pO2 69.0 cHCO3- 25.4 cBase 1.6 Exam Performed by: Allied health pract Exam Interpreted by: ED physician X-Ray Chest Interpretation Chest Xray Interpretation: IMPRESSION: 1. Small bilateral pleural fluid collections. 2. Bibasilar opacities compatible with atelectasis, pneumonia or aspiration. Dictated by: Emilie Saavedra MD, PhD on 10/25/2016 at 17:44 Approved by: Emilie Saavedra MD, PhD on 10/25/2016 at 17:45 View: Portable, 1 view Interpretation / Wet Read by: Interpret - Radiologist CT Head Interpretation IMPRESSION: No acute intracranial disease process. Dictated by: Emilie Saavedra MD, PhD on 10/25/2016 at 20:11 Approved by: Emilie Saavedra MD, PhD on 10/25/2016 at 20:12 Study: Head CT no contrast Interpretation / Wet Read by: Interpret - Radiologist Re-Eval/Medical Decision Time of Eval: 18:43 Re-Evaluation/Progress Note: Discussed plan for admission. Patient and understand and agree with plan. All questions addressed at this time. Consultation : Referral / Consult Name: Tomas Carrillo MD Call Returned at: 19:19 Chefs: Will see patient, Agrees with eval, Agrees with plan, Accepts admit Note: Discussed pt's case. Accepts admit. Counseled Regarding: Diagnosis, Lab results, Need for admission Discharge & Departure Primary Impression: CHF exacerbation Congestive heart failure type: unspecified congestive heart failure type Qualified Code: I50.9 - Heart failure, unspecified Disposition: ADMITTED TO HOSPITAL Discharge Condition All VS Reviewed: Yes Condition: Stable Referrals: Ej Goodwin DO (PCP) Meche Marley MD Scribe Attestation Portions of this note were transcribed by Lona Islas. I, Dr. Mccann personally performed the history, physical exam and medical decision-making; I reviewed and confirmed the accuracy of the information in the transcribed note. Signed by: Lona Islas 10/25/162017 copies to: Meche Marley MD; Ej Goodwin William B MD Oct 25, 2016 18:07 LONA ISLAS Oct 25, 2016 18:15
[2016-10-25] MEDS ORDERED: 0.9% Sodium Chloride 1,000 ML IV ONE (18:40)
[2016-10-25] MEDS ORDERED: Piperacillin-Tazo 3.375 Gm Inj 3.375 GM in Dextrose 5% Minibag Plus 50 ML IV ONE (18:40)
[2016-10-25] MEDS ORDERED: Vancomycin Dose per Pharmacist XX ONE (18:40)
[2016-10-25] MEDS ORDERED: Vancomycin Inj 2,000 MG in 0.9% Sodium Chloride 500 ML IV ONE (18:50)
--- NOTE | 2016-10-25 19:24 | ABG ---
DateTimeAnalyzed 19:17:32 -_ pH ____7.467 - 7.350 7.450 pCO2 ___35.2__ -mmHg 35.0 45.0 pO2 ___69.0__ -mmHg 69.0 116 HCO3- ___25.4__ -mmol/L 22.0 26.0 ABE ____1.6__ -mmol/L tHb ____9.8__ -g/dL O2Hb ___93.4__ -% COHb ____2.1__ -% 1.5 MetHb ____0.0__ -% sO2 ___95.3__ -% FIO2 ___21.0__ -% Drawn By MM - Date/Time Notified____ 19:24:00 -_ Spontaneous_RR 18 -b/min Notified By MM - Notified Whom DR SAMIR - K+ ____3.8__ -mmol/L tO2 ___13.0__ -Vol% Marv test _Positive -
[2016-10-25] MEDS ORDERED: Polyethylene Glycol (PEG) 17 Gm Powder PO PRN (20:10)
[2016-10-25] MEDS ORDERED: Alum-Mag Hydrox-Simeth 30 mL Suspension PO PRN (20:10)
[2016-10-25 20:13] VITALS: BP 108/50; PULSE 62; RESP 18; O2SAT 95
--- NOTE | 2016-10-25 20:14 | DRSVH ---
PROCEDURE: CT BRAIN WITHOUT CONTRAST ([id number]) INDICATIONS: Acute mental status changes. TECHNIQUE: Noncontrast 4.5 mm thick angled axial sections acquired from the foramen magnum to the vertex, with c oronal reformats. COMPARISON: [facility], CT, CT BRAIN WO CON, 05/02/2016, 0:27. FINDINGS: Image quality: Excellent. CSF spaces: Basal cisterns are patent. No extra-axial fluid collections. The ventricles are symmet kvng in size and shape. Brain: No intracranial bleeds or masses. There is cerebral volume loss for age, with resultant vent ricular and sulcal prominence. There are periventricular and deep white matter chronic small vessel ischemic changes. There is intracranial internal carotid artery and vertebral artery atherosclerosis . Skull and face: Calvarium and visualized facial bones appear intact, without suspicious lesions. Sinuses: Mucosal thickening noted in the visualized right maxillary sinus. The mastoids are clear. IMPRESSION: No acute intracranial disease process. Dictated by: Emilie Saavedra MD, PhD on 10/25/2016 at 20:11 Approved by: Emilie Saavedra MD, PhD on 10/25/2016 at 20:12
[2016-10-25] MEDS ORDERED: CEPH-512 PO (20:30)
[2016-10-25] MEDS ORDERED: WARF3TAB7 PO (20:30)
[2016-10-25] MEDS ORDERED: METO5TAB5 PO (20:30)
[2016-10-25] MEDS ORDERED: LORA0.5T PO (20:30)
[2016-10-25] MEDS ORDERED: METO25TA99 PO (20:30)
[2016-10-25] MEDS ORDERED: BISA10SU61 RC (20:30)
[2016-10-25] MEDS ORDERED: ACET325C PO (20:30)
[2016-10-25] MEDS ORDERED: CLC200SP2 (20:30)
[2016-10-25] MEDS ORDERED: NA P133E23 RC (20:30)
[2016-10-25] MEDS ORDERED: LACT1CAP44 PO (20:30)
[2016-10-25] MEDS ORDERED: BISA-67 PO (20:30)
[2016-10-25] MEDS ORDERED: MAGN400O4 PO (20:30)
[2016-10-25] MEDS ORDERED: TRAM50TA2 PO (20:30)
--- NOTE | 2016-10-25 20:53 | PCM.HPMED ---
Subjective Date of Service Oct 25, 2016 Primary Provider: Admitting Physician: Tomas Carrillo MD Primary Care Physician: Ej Goodwin DO Attending Physician: Tomas Carrillo MD Chief Complaint: Decreased mentation, weakness History of Present Illness: Mr. Cervantes is an 86-year-old gentleman with history of CHF, CAD status post CABG and AICD, A. fib on warfarin, previous hospitalization for aspiration pneumonia, presents to the [facility] ED via EMS from [facility] with stated complaint that he has had confusion worsening over the last couple of days, bilateral lower extremities edema with developing bilateral redness, warmth that extends into his medial legs and up into his groin, states that he has developed hallucinations and agitation and confusion with onset 3 weeks ago, additionally he fell 3 weeks ago onto his left side. Per emergency room documentation, there is not been any vomiting, fever. Patient denies with head shake any lightheadedness dizziness, chest pain, shortness of breath, "no pain anywhere." He is somnolent on exam and often does not answer questions limiting ROS. was able to convey that his abdomen is chronically tender and that is not new, over the last 2-3 days he has developed cold sweats and chills stating that they keep a pretty warm at the facility he is in an rarely complains about being cold, but has been shivering and asking for blankets last 2 days. Additionally he chronically has wet sounding cough, but there was an episode where he attempted to drink water in the last couple of days and had an aspiration event, states continue to be concerned for aspiration risk. is also able to shed additional light on the nature of his bilateral lower extremity edema and redness, reportedly he has had this before in the past where he was admitted to the hospital receiving diuretics as well as antibiotics and he responded to them and was discharged. The wrapping on his legs were placed there due to swelling and is covering up areas of weeping. In the emergency department he had blood pressure of 106/69, temperature 35.8, 62, 16, 96% on room air. WBC 5.7, hemoglobin 10.3, RDW 21.9, Normal electrolytes, BUN 58, creatinine 2.18, glucose 111, troponin 0.07, alkaline phosphatase 175, BNP 9881. INR 3.44 Chest x-ray or showed small bilateral pleural fluid collections, bibasilar opacities suspicious for pneumonia or aspiration. Head CT was negative for intracranial pathology. EKG atrial fibrillation, heart rate 60, PVCs, left axis deviation, "consider inferior infarct, anterior lateral infarct, age indeterminant" Based on x-ray findings, decreased mental status, redness and warmth to the bilateral lower extremities, patient was started on vancomycin and Zosyn. Review of Systems: ROS difficult to obtain secondary to patient's mental status, otherwise attainable ROS answers as stated in history of present illness. Allergies Coded Allergies: No Known Allergies (Unverified , 10/25/16) Home Medications Scheduled Ascorbic Acid (Vitamin C) 1,000 Mg Tab.chew 1,000 MG PO HS Aspirin (Aspirin) 81 Mg Tablet 81 MG PO QAM Atorvastatin (Lipitor) 20 Mg Tablet 20 MG PO HS Cholecalciferol (Vitamin D3) (Vitamin D3) 1,000 Unit Tab.chew 1,000 UNIT PO QAM Cyanocobalamin (Vitamin B-12) (Vitamin B-12) 5,000 Mcg Tab.rapdis 5,000 MCG PO QAM Docusate Sodium (Colace) 100 Mg Capsule 300 MG PO HS Finasteride (Finasteride) 5 Mg Tablet 5 MG PO QAM Isosorbide MN ER (Isosorbide MN ER) 30 Mg Tab.er.24h 30 MG PO QAM L. Rhamnosus GG/Inulin (Culturelle Capsule) 10 Billion Cell-200 Mg Cap.sprink 1 EACH PO QAM Metoprolol Succinate ER (Metoprolol Succinate ER) 50 Mg Tab.er.24h 50 MG PO BID [place]-3/Dha/Epa/Fish Oil (Fish Oil 1,000 mg Softgel) 1 Each Capsule 1 EACH PO QAM Oxycodone (Roxicodone) 5 Mg Tablet 5 MG PO HS Potassium Chloride (Potassium Chloride) 20 Meq Tab.er.prt 40 MEQ PO QAM POTASSIUM 40 MEQ IN AM, 20 MEQ IN PM. TAKE WITH FOOD. Potassium Chloride ER (Potassium Chloride ER) 20 Meq Tablet.er 20 MEQ PO DAILYWD POTASSIUM 40 MEQ IN AM, 20 MEQ IN PM. TAKE WITH FOOD. Sennosides (Senna) 8.6 Mg Tablet 25.8 MG PO HS Sertraline HCl (Sertraline) 25 Mg Tablet 12.5 MG PO HS Spironolactone (Spironolactone) 25 Mg Tablet 12.5 MG PO QAM Torsemide (Torsemide) 20 Mg Tablet 20 MG PO BIDWM Ubidecarenone (Coq-10) 100 Mg Capsule 300 MG PO HS Warfarin Sodium (Warfarin Sodium) 5 Mg Tablet 5 MG PO DAILY EXCEPT E/JUANIS TAKE 2.5 MG WARFARIN ON /TH AND 5 MG ALL OTHER DAYS Warfarin Sodium (Warfarin Sodium) 2.5 Mg Tablet 2.5 MG PO / TAKE 2.5 MG WARFARIN ON /TH AND 5 MG ALL OTHER DAYS Scheduled PRN Nitroglycerin SL (Nitroglycerin SL) 0.4 Mg Tab.subl 0.4 MG SL PRN For Chest Pain PMH Aspiration pneumonia Chronic atrial fibrillation on warfarin CAD status post CABG Pacemaker insertion Hyperlipidemia Ischemic heart disease Diastolic heart failure Chronic kidney disease Chronic low back pain Opiate-induced constipation Exertional dyspnea BPH Chronic low blood pressure Multiple ground-level falls Surgical History Bilateral knee replacement Basal cell carcinoma status post Mohs surgery Cardiac cath AICD placement Family History Previous documentation states no known history of cardiac disease in family, patient unable to give family history at this time. Social History Hx Alcohol Use: No Hx Substance Use: No Hx Tobacco Use: Yes Smoking Status: Former Smoker Living Arrangement: Assisted Living Exam Vital Signs Vital Sign - Last Date Time Temp Pulse Resp B/P Pulse Ox O2 Delivery O2 Flow Rate FiO2 10/25/16 20:13 62 18 108/50 95 Room Air 10/25/16 16:23 36.0 Exam General: Laying in bed, somnolent, Obese, HEENT: Normocephalic, atraumatic, EOMI grossly, pupils 2 mm bilaterally, prominent JVD bilaterally, unable to appreciate lymph nodes, neck otherwise supple, mucous membranes dry. Cardiovascular: AICD deformity to anterior left chest, regular rate and rhythm, 2 out of 6 obstructing systolic murmur at left sternal border, peripheral pulses 2/6 radial. Unable to appreciate DP. Pulmonary: Unable to examine posterior posts, laterally coarse breath sounds on the left with fine rails, right axillary is CTA Abdominal: Abdomen is diffusely tender, patient unable to localize pain or convey rebound is present. Winces, moans, and splints when abdomen is pressed. Extremities: Moderate bilateral lower extremity edema, co-band wrapping in place , diffuse circumferential erythema to tibial region, ascending medially to the groin. Redness has passed previous area of demarcation by black marker, it is warm. Neuro: Difficult to assess secondary to mental status, station repairer strength is equal bilaterally, is able to follow commands. Cranial nerves II through XII are grossly intact and symmetric. MSK: Molded Rub[employer] Goods Cutter strength 4/5, equal bilaterally. Psych: Follows commands, states he is aware he is in the hospital. Lab and Diagnostics Result Diagram: 10/25/16 1635 10/25/16 1635 X-Rays, CTs and MRIs Head CT without contrast performed 10/25/2016 IMPRESSION: No acute intracranial disease process. Dictated by: Emilie Saavedra MD, PhD on 10/25/2016 at 20:11 Chest x-ray performed 10/25/2016 IMPRESSION: 1. Small bilateral pleural fluid collections. 2. Bibasilar opacities compatible with atelectasis, pneumonia or aspiration. Dictated by: Emilie Saavedra MD, PhD on 10/25/2016 at 17:44 12-lead ECG EKG atrial fibrillation, heart rate 60, PVCs, left axis deviation, "consider inferior infarct, anterior lateral infarct, age indeterminant" Assessment & Plan 86-year-old gentleman with documented medical history including chronic kidney disease, coronary artery disease congestive heart failure, history of aspiration pneumonia presents with worsening on chronic weakness and confusion, lower extremity edema with erythema extending up into the groin, very tender abdomen, opacities on x-ray concerning for pneumonia, and JVD Acute pneumonia, most likely aspiration, present on admission, active. X-ray demonstrates bibasilar opacities, cough, coarse breath sounds on the left , witnessed episode of aspiration with water ingesting medications. Pro-calcitonin 0.20 Sputum sample Gram stain, culture and sensitivity Speech therapy swallow eval Zosyn 3.375 mg IV every 8 hours MRSA screen Acute on chronic congestive heart failure, POA. bilateral lower extremity edema with weeping, elevated BNP greater than 9000. Blood pressure in the low 100s, bradycardic Hold off diuretics at this time although patient appears fluid overloaded his vital signs do not appear they can support diuresis. (Diuretics from outpatient include Isosorbide 30 mg every morning, metolazone 5 mg daily, spironolactone 12.5 mg every morning, torsemide 60 mg daily) Low blood pressure and bradycardia 56 beats per minute, 97/56 map of 70 500 mL of IV NS given now Possibly developing signs of sepsis, continue to monitor Placed on telemetry Hold metoprolol 25 mg twice a day until blood pressure improves. Bilateral lower extremity erysipelas, POA. Recurrent previous pattern of cellulitis, prescribed Keflex 500 mg 4 times a day has outpatient, without relief. Vancomycin for MRSA coverage ASO titer for presence of strep infection ID consultation Acute on chronic encephalopathy, present on admission, Active Attributed to pneumonia, CHF, ABG showed pH of 7.467, PCO2 35.2, PO2 69.0, bicarbonate 25.[address] was negative for acute bleed No jaundice, scleral icterus, Lactic acid 1.8, glucose only 111 Supratherapeutic INR 3.44, POA, active Possibly due to antibiotic in the outpatient setting No signs of active bleeding Warfarin to be dosed by pharmacy Acute on chronic kidney disease, present on admission, active BUN 59, creatinine 2.16, both are highest levels seen at any previous hospitalization. Most likely due to poor oral intake secondary to weakness and confusion. Nephrology consultation Holding diuretics at this time secondary to low blood pressure. Chronically elevated troponin, POA, active Troponin 0.070 which is consistent with previous values from Hospital admissions and stays. Patient is on telemetry as above Recheck with any new chest pain or arrhythmia. Chronic hyperlipidemia, POA, active Continue atorvastatin 20 mg by mouth at bedtime BPH, POA, stable Continue finasteride 5 mg by mouth every morning Chronic anxiety, POA, active Continue outpatient medication lorazepam 0.5 mg every 6 hours when necessary for anxiety Patient admitted under inpatient status with expected length of stay > 2 midnights for severity of present symptoms, complexities of treatment plan and risk for adverse events Pain Evaluation: Adequate Pain Control GI Prophylaxis: Not indicated VTE Prophylaxis Indicated: Contraindicated (Supratherapeutic INR) Resuscitation Status: DNR/DNI:Do Not Resuscitate/Intubate Attending Statement The patient was seen and examined together with Dr. Miranda on 10/25 and I agree with the history, exam and plan as outlined in the note above. Boubacar Rogers DO Oct 25, 2016 20:53 Tomas Carrillo MD Oct 26, 2016 03:37
--- NOTE | 2016-10-25 21:00 | NUR ---
Admission Note Pt admitted at 2044 to [facility] from ER on stretcher. Alert, mild confusion, oriented to place,year,[place], c/o back pain 10/10,especially with activities, appears SOB, denies cough,n/v/fever/chills. BP97/56 HR 56 SPO2 95% on RA, RR14 T 36.6. Pt unable to tolerable O2 which causes pt "stop breathing" per GOVERNMENT PROFESSOR report. Obese, moderately decreased lung sounds, no wheezes or crackles noted, HR regular,no murmur. Tele applied v-paced 69 per geotechnical field technician. Abdomen soft,non tender, BT active. Anasarca, pitting edema from lower chest down to feet. Generalized bright redness from mid thigh down to feet, warm to touch, preexisting dressing at bilateral LEs, placed at [facility] rehap per , dressing opened, skin checked: bright red skin, some shallow open areas at bilateral vigil,minimal serosanguineous drainage, generalized skin excoriation, dry, flaking. Dressing reapplied. Generalized bruises at arms, hands,legs, upper chest, left face,left flank, skin tear at right forearm,bandage in place CDI, skin tear at left forearm with some sanguineous drainage, and skin tear at left hand, dressing CDI. Vanco running brought from ER. Call light oriented to pt, in room. Semifowler position for better breathing, Dr. Rogers in room, pain meds requested. Care ongoing. Pt placed on P500. [place] arm on.
[2016-10-25 21:11] VITALS: PULSE 62
[2016-10-25 21:37] VITALS: BP 97/56; PULSE 56; RESP 14; O2SAT 95
--- NOTE | 2016-10-25 21:39 | PCM.CONPHA ---
Subjective Date of Service: Oct 25, 2016 Decreased mentation, weakness Reason for Pharmacy Consult: Vancomycin Dosing Objective Vital Signs Date Time Temp Pulse Resp B/P Pulse Ox O2 Delivery O2 Flow Rate FiO2 10/25/16 20:13 62 18 108/50 95 Room Air 10/25/16 18:02 60 17 103/59 96 Room Air 10/25/16 16:23 36.0 60 14 115/77 100 Room Air 10/25/16 16:04 35.8 62 16 106/69 96 Room Air Weight (Kilograms): 116.36 Height (Feet): 5 Height (Inches): 9 Test 10/25/16 16:35 10/25/16 19:56 White Blood Count 5.7th/mm3 (3.8-10.1) Red Blood Count 3.88mil/mm3 (4.40-5.80) Hemoglobin 10.3g/dL (13.8-17.2) Hematocrit 31.8% (41.0-50.0) Mean Corpuscular Volume 82.0fL (81-100) Mean Corpuscular Hemoglobin 26.5pg (27.0-35.0) Mean Corpuscular Hemoglobin Concent 32.4% (32.0-37.0) Red Cell Distribution Width 21.9% (12.3-15.4) Platelet Count 170bil/L (150-400) Neutrophils (%) (Auto) 53.4% (40-74) Lymphocytes (%) (Auto) 16.1% (14-46) Monocytes (%) (Auto) 22.6% (4-12) Eosinophils (%) (Auto) 6.8% (0-5) Basophils (%) (Auto) 0.9% (0-3) Prothrombin Time 37.7sec (8.1-12.5) Prothromb Time International Ratio 3.44ratio Activated Partial Thromboplast Time 43.0sec (22.8-33.0) Sodium Level 135mEq/L (134-144) Potassium Level 4.0mEq/L (3.5-5.2) Chloride Level 97mEq/L (97-108) Carbon Dioxide Level 21mmol/L (18-29) Blood Urea Nitrogen 58mg/dL (8-27) Creatinine 2.16mg/dL (0.76-1.27) Estimat Glomerular Filtration Rate 31mL/min (>59) Glucose Level 111mg/dL (60-99) Calcium Level 9.2mg/dL (8.5-10.1) Magnesium Level 2.1mg/dL (1.6-2.6) Total Bilirubin 3.3mg/dL (0.0-1.2) Aspartate Amino Transf (AST/SGOT) 28U/L (0-50) Alanine Aminotransferase (ALT/SGPT) 18U/L (0-44) Alkaline Phosphatase 175U/L (25-160) Troponin T 0.070ug/L (0.0-0.011) Pro-B-Type Natriuretic Peptide 9881pg/mL (0-486) Total Protein 7.1g/dL (6.4-8.4) Albumin 3.1g/dL (3.4-5.0) Procalcitonin 0.20ng/mL (0.00-0.08) Lactic Acid Level 1.8mmol/L (0.4-2.0) Assessment/Plan Assessment/Plan VANCOMYCIN MANAGEMENT A\ 86YO M ADMITTED FOR CELLULITIS/PNEUMONIA SCr=2.19 GFR=29 WBC=5.7 afebrile Goal Vancomycin trough = 15-20 for pneumonia Pt received Vancomycin 2000mg IV x1 10/25 1957 Cultures pending P\Vancomycin 1500mg iv q24h starting 10/26 2000 daily SCr and will clarify if vancomycin for PNA and cellulitis. Marcell Neff [facility] Oct 25, 2016 21:39
[2016-10-25] MEDS ORDERED: LORazepam 0.5 mg Tablet PO PRN (22:10)
[2016-10-25] MEDS ORDERED: 0.9% Sodium Chloride 500 ML IV ONE (22:15)
--- NOTE | 2016-10-25 23:26 | PCM.CONPHA ---
Subjective Date of Service: Oct 25, 2016 Decreased mentation, weakness Reason for Pharmacy Consult: Anticoagulation Management Objective Vital Signs Date Time Temp Pulse Resp B/P Pulse Ox O2 Delivery O2 Flow Rate FiO2 10/25/16 21:37 36.6 56 14 97/56 95 Room Air 10/25/16 21:11 62 10/25/16 20:13 62 18 108/50 95 Room Air 10/25/16 18:02 60 17 103/59 96 Room Air 10/25/16 16:23 36.0 60 14 115/77 100 Room Air 10/25/16 16:04 35.8 62 16 106/69 96 Room Air Weight (Kilograms): 114.900 Height (Feet): 5 Height (Inches): 9.00 Test 10/25/16 16:35 10/25/16 19:56 White Blood Count 5.7th/mm3 (3.8-10.1) Red Blood Count 3.88mil/mm3 (4.40-5.80) Hemoglobin 10.3g/dL (13.8-17.2) Hematocrit 31.8% (41.0-50.0) Mean Corpuscular Volume 82.0fL (81-100) Mean Corpuscular Hemoglobin 26.5pg (27.0-35.0) Mean Corpuscular Hemoglobin Concent 32.4% (32.0-37.0) Red Cell Distribution Width 21.9% (12.3-15.4) Platelet Count 170bil/L (150-400) Neutrophils (%) (Auto) 53.4% (40-74) Lymphocytes (%) (Auto) 16.1% (14-46) Monocytes (%) (Auto) 22.6% (4-12) Eosinophils (%) (Auto) 6.8% (0-5) Basophils (%) (Auto) 0.9% (0-3) Prothrombin Time 37.7sec (8.1-12.5) Prothromb Time International Ratio 3.44ratio Activated Partial Thromboplast Time 43.0sec (22.8-33.0) Sodium Level 135mEq/L (134-144) Potassium Level 4.0mEq/L (3.5-5.2) Chloride Level 97mEq/L (97-108) Carbon Dioxide Level 21mmol/L (18-29) Blood Urea Nitrogen 58mg/dL (8-27) Creatinine 2.16mg/dL (0.76-1.27) Estimat Glomerular Filtration Rate 31mL/min (>59) Glucose Level 111mg/dL (60-99) Calcium Level 9.2mg/dL (8.5-10.1) Magnesium Level 2.1mg/dL (1.6-2.6) Total Bilirubin 3.3mg/dL (0.0-1.2) Aspartate Amino Transf (AST/SGOT) 28U/L (0-50) Alanine Aminotransferase (ALT/SGPT) 18U/L (0-44) Alkaline Phosphatase 175U/L (25-160) Troponin T 0.070ug/L (0.0-0.011) Pro-B-Type Natriuretic Peptide 9881pg/mL (0-486) Total Protein 7.1g/dL (6.4-8.4) Albumin 3.1g/dL (3.4-5.0) Procalcitonin 0.20ng/mL (0.00-0.08) Lactic Acid Level 1.8mmol/L (0.4-2.0) Assessment/Plan Assessment/Plan WARFARIN MANAGEMENT A\ 86YO M ADMITTED WITH CHF EXACERBATION, CELLULITIS/ PNEUMONIA WITH HISTORY OF AFIB GOAL INR = 2-3 CURRENT INR =3.44 NO BLEEDING PER RN HCT=31.8 FPN=535 HOME WARFARIN 2.5MG ,; 5MG MO,WE,FR,SA,[place] P\ WILL HOLD TONIGHTS WARFARIN DOSE AND FOLLOW DAILY INRs Mracell Neff [facility] Oct 25, 2016 23:26
[2016-10-26] VITALS (8 sets, daily range): BP systolic 99–112; BP diastolic 62–68; PULSE 63–70; RESP 16; O2SAT 94–99
[2016-10-26 01:17] LABS: APPEARANCE,URINE CLEAR (CLEAR,HAZY); COLOR,URINE YELLOW (YELLOW); OCCULT BLOOD,URINE NEGATIVE (NEGATIVE); UROBILINOGEN,URINE NORMAL (NORMAL)
[2016-10-26] MEDS: Piperacillin-Tazo 3.375 Gm Inj 3.375 GM in Dextrose 5% Minibag Plus 50 ML IV SCH ×2 (02:46→10:51)
[2016-10-26] MEDS ORDERED: METO5TAB5 PO (02:53)
[2016-10-26] MEDS ORDERED: ASCO500C6 PO (03:12)
[2016-10-26] MEDS ORDERED: SPIR25TA3 PO (03:12)
[2016-10-26] MEDS ORDERED: TORS20TA3 PO (03:12)
--- NOTE | 2016-10-26 03:55 | NUR ---
Admission Assessment Pt confused,unable to recall hx, no family available at night. Admission assessment mostly based on previous medical records. Advance Directive in the EMAR need to be verified with family. MARI screen need to be done with family assistance. Addendum: 10/26/16 at 0545 by JEANNE ARRIAZA RN MARI screen completed.
--- NOTE | 2016-10-26 04:20 | NUR ---
Nasal MRSA screen sent around 0300.
[2016-10-26 06:03] LABS: BASOPHILS % (AUTO) 1.2 % (0-3); EOSINOPHILS % (AUTO) 8.3 % (0-5); MONOCYTES % (AUTO) 18.7 % (4-12); Mean Corpuscular Hemoglobin 26.6 pg (27.0-35.0); Mean Corpuscular Volume 81.8 fL (81-100); NEUTROPHILS % (AUTO) 53.1 % (40-74); Platelet Count 166 bil/L (150-400)
[2016-10-26 06:29] LABS: INR 3.18 ratio
[2016-10-26] MEDS ORDERED: Vancomycin Dose per Pharmacist XX SCH (08:30)
--- NOTE | 2016-10-26 08:53 | NUR ---
Evaluation completed. Please go to "Notes" then click on "Assessments and Notes" (bottom left corner of screen). Then select appropriate discipline tab on top of screen.
--- NOTE | 2016-10-26 08:54 | PCM.PHAPRO ---
Progress Decreased mentation, weakness Date Oct 26 INR 3.44 3.18 INR change -0.26 Warf Dose HOLD 1 mg Jerry Perdomo Pharm.D Oct 26, 2016 08:54
[2016-10-26] MEDS: Omega-3 Fatty Acids 1,000 mg Capsule PO SCH (08:56)
[2016-10-26] MEDS: Potassium Chloride 20 mEq SR Tablet PO SCH (08:57)
[2016-10-26] MEDS: Lactobacillus Rhamnosus 10 Bil Unit Capsule PO SCH (08:58)
[2016-10-26] MEDS: Calcitonin 200 IU 3.7 mL Nasal Spray NASAL SCH (10:52)
--- NOTE | 2016-10-26 11:08 | NUR ---
Social Work-initial assessment: Data:See initial assessment. Pt is a 86 y/o male who was admitted on 10/25/16 for chf exac per H&P. Pt's insurance is [employer] and PCP is Ej Goodwin DO. EMR Reviewed. GAURANG attempted to reach pt's Meche [phone], SW left message,awaiting a return call. Pt comes from [facility]. MD order received for return to SNF. GAURANG placed a call to Cj admissions at [facility] who states pt does come from them and they can accept back when ready. Cj would like updated clinicals faxed, which GAURANG has done. SW to await return call from . Paperwork in the chart. SW will continue to follow. Assessment:Pt who has been at [facility] for rehab. Plan:Pt to likely discharge back to [facility] when medically stable. GAURANG has left message for pt's Meche. Paperwork in the chart. SW will continue to follow. CRISTIAN Cannon Addendum: 10/26/16 at 1114 by SAMUEL HEMPHILL SS Amended: Links added.
--- NOTE | 2016-10-26 11:15 | NUR ---
[facility] can accept pt back with Dr. Schaefer to follow. Carin Ferreira,MONITORING TECH
--- NOTE | 2016-10-26 11:42 | CONS ---
[address] [address] CONSULTATION REPORT PATIENT: SAMANTHA LATHAM : 1930 MR#: [id number] ADMIT: 10/25/2016 JOB ID: [id number] DATE OF SERVICE: 10/26/2016 RENAL CONSULTATION: HISTORY: The patient is a very unfortunate 86-year-old white male, who was admitted to [facility] for bilateral cellulitis, recurrent falls and general debility. He has a history of stage 3 chronic kidney disease with appears to be about the same at time of this admission. He apparently has not been seen by nephrology in the past and renal consultation is being sought for further evaluation of his chronic kidney disease. The patient is unable to give me any information as he is quite somnolent. From what I understand, he has been in declining health for the last several months. He is at an extended care facility where he has been since a hospitalization last month for pneumonia. His is taking care of him and his needs are exceeding her ability. He has had marked deterioration in his mental status, hallucinations, increased agitation and confusion for the last three weeks. He has also been having some decreased oral intake. In reviewing his information, I see that he has chronic kidney disease dating back several years. In June of 2014, his serum creatinine was 1.4. In May of 2015, it was 2.2 and it has ranged between 1.8 and the low-to-mid 2 range since that time. During his most recent hospitalization, his creatinine at the time of discharge was 1.9. At time of admission, it was 2.1. He has a history of peripheral vascular disease and has been seeing Wound Care. Both legs are bandaged but from appearance appear to have some evidence and some component of cellulitis. He also has extensive edema. PAST MEDICAL HISTORY: Is significant for: 1. Stage 3 chronic kidney disease. 2. Hypertension with hypertensive heart disease and hypertensive nephrosclerosis. 3. Diastolic congestive heart failure. 4. Mitral regurgitation. 5. Coronary artery disease with prior HI. 6. Atrial fibrillation on warfarin. 7. Hyperlipidemia. 8. Depression. 9. Probable dementia. PAST SURGICAL HISTORY: Is significant for: 1. Coronary artery bypass graft x3. 2. Pacemaker insertion. 3. Bilateral knee replacements. ALLERGIES: He is not allergic to any food or any medications. SOCIAL HISTORY: He lives in an assisted living center and is unable to take care of his basic needs. Apparently, there is a history of former tobacco use but he currently does not smoke or drink. FAMILY HISTORY: Unobtainable. REVIEW OF SYSTEMS: As detailed above. Otherwise is unobtainable. MEDICATIONS: At time of my evaluation, include: Aspirin, ascorbic acid, Lipitor, vitamin D, B12, finasteride, isosorbide, insulin, metoprolol, potassium chloride, sertraline, spironolactone, torsemide and warfarin. PHYSICAL EXAMINATION: Revealed a mildly obese, chronically ill appearing 86-year-old white male who was quite somnolent at time of my evaluation, and when asked a question, would mumble responses which were incoherent. His blood pressure was 108/63 with a pulse rate of 70. HEENT examination is remarkable for pale sclerae. Cornea, conjunctivae, pupils and extraocular muscles were unremarkable. Neck is supple without adenopathy or thyromegaly. However, there was some mild jugular venous distention at about 45 degrees elevation. Lungs showed diminished breath sounds bilaterally due to poor inspiratory effort. However, there were no rales or rhonchi noted. Heart was irregularly irregular. Abdomen is soft and mildly distended. Bowel sounds were present, though somewhat diminished. There was no tenderness, rebound, guarding or masses noted. There was some mild hepatomegaly. Extremities showed pitting edema which was mild to moderate up through the thighs. Both distal lower extremities were wrapped and this was not explored. Half and half nails were noted. Skin turgor was good and there is no evidence of any rashes. LABORATORY EXAMINATION: This morning, white count was 5.1, hemoglobin was 9.8, hematocrit 30.1. Red cell indices and platelet count were normal. He had 19% monocytes. This morning his sodium is 143, potassium 3.8, chloride of 101, bicarbonate 24, BUN and creatinine were 58 and 2.15. Glucose is 103. His bilirubin has been persistently elevated and today is 3.4, however, his remaining liver function tests were normal. His albumin is low at 3.2. Urinalysis showed a specific gravity 1.010, pH of 5. Test for protein, glucose, ketones and occult blood is negative as was a microscopic examination. IMPRESSION: 1. Stage 3 chronic kidney disease. 2. Diabetic nephropathy. 3. Hypertension with hypertensive heart disease and hypertensive nephrosclerosis with diastolic dysfunction. 4. Dementia. RECOMMENDATION: At this point, in looking at the patient and his progressive deterioration, I do not feel that he would be a candidate for any type of aggressive type therapy. I do not feel, at this point, we have much else to offer. Should there be a big change in the patient's condition, please do not hesitate to contact us. Once again, I would like to thank you for allowing me to participate in the care of this unfortunate patient and should you have any problems or any questions, please do not hesitate to contact us.
--- NOTE | 2016-10-26 11:44 | NUR ---
Social Work-continued d/c planning: Data:EMR Reviewed. Pt is on day 1 of hospitalization for CHF exacerbation. SW received a call from pt's - Meche. Meche states that she is unsure if she wants pt to return to [facility] because of distance. states she likely would want pt to go to SNF in [facility] area, SW provided pt with SNF list in the room. to review and SW to follow up tomorrow. also states she plans to speak with MD regarding Palliative Care. SW has placed SNF list in room. Paperwork in the chart. SW will continue to follow. Assessment:Pt who would benefit from SNF. Plan:SW has left SNF list in room for to review. is not sure if she wants pt to return to [facility], may want pt to go to SNF in [facility]. Paperwork in the chart. SW will continue to follow. CRISTIAN Cannon
--- NOTE | 2016-10-26 13:13 | CONS ---
[address] [address] CONSULTATION REPORT PATIENT: SAMANTHA LATHAM : 1930 MR#: [id number] ADMIT: 10/25/2016 JOB ID: [id number] DATE OF SERVICE: 10/26/2016 INFECTIOUS DISEASE CONSULTATION: I thank Dr. Rogers for this timely consult. REASON FOR CONSULTATION: Bilateral lower extremity erythema. HISTORY OF PRESENT ILLNESS: The patient is an unfortunate 86-year-old gentleman with a series of worsening but interrelated medical problems. His primary issue is that he has severe organic heart disease with CHF as well as coronary artery disease and atrial fibrillation. For months he has had progressive lower extremity edema. He states that over the past few weeks his legs have turned red bilaterally below the knees. He recently, about two or three weeks ago while at a rehab or skilled nursing in the [facility], had leg wrappings applied to his lower extremities which apparently have not been removed in a couple of weeks. These are compressive type dressings applied to deal with his lymphedema, from examining these dressings. He has been staying most recently at the [facility] facility in [place] and was referred here because of confusion, weakness, and increasing lower extremity edema with erythema, and increasing shortness of breath. The history is that several months ago he was hospitalized with pneumonia, though we do not apparently have these full records. He subsequently had some ground level falls and generalized deterioration in his health, with increasing lower extremity edema, which led him to the [facility] facility. While there he developed the confusion as well as some increasing shortness of breath and progressive swelling and erythema of his lower extremities bilaterally. It was noted that while he was at the nursing facility he was complaining of some chills apparently prior to his transfer here. Late this morning we examined the patient. Today he is relatively alert, but a fairly inexact historian. He tells us that he is always somewhat short of breath and that has been the case for years and that it has been slowly increasing. He has no significant cough today and denies fevers or chills. He states that his lower extremities have been swelling up for months, and much worse in the past two months, and that they have been quite red for about that same period. He also has noticed swelling in the scrotum and some vague but persistent epigastric pain without apparent nausea or vomiting. Overall he is somewhat limited as a historian. PAST MEDICAL HISTORY: 1. Organic heart disease. a. AFIB. b. Permanent AICD in place. c. Coronary artery disease status post CABG. d. CHF. e. Chronic and worsening bilateral lower extremity edema. 2. Status post bilateral knee replacements. 3. Hypertension. 4. BPH. 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 He has lived in [place] but currently resides in the [facility], around the [facility]. She was a former smoker, but quit decades ago. Does not drink alcohol. Typically lives with his . Most recently he has been in a [facility] facility. FAMILY HISTORY: Negative for tuberculosis as far as he knows in first- or second-degree relatives. REVIEW OF SYSTEMS: Was a bit limited because he is not a great historian but he told us that he is not having headaches currently. No acute visual change. No acute sore throat. He is chronically short of breath and has a cough which is typically nonproductive. Today he is not especially short of breath as compared to other days. He is having some epigastric discomfort but no nausea, vomiting, or diarrhea. He is not experiencing dysuria, though he does note his scrotum is quite swollen and has been apparently for weeks by his report. His lower extremities are progressively swelling and his lower extremity swelling has been so bad in recent months that he cannot walk without falling and spends much of his time in a wheelchair because of his lower extremity edema. Remainder of the review of systems is negative or cannot be obtained. PHYSICAL EXAMINATION: Reveals an afebrile gentleman, temperature 36.8, pulse 64, respiratory rate 16, blood pressure 103/63, saturating 99% on room air. He is comfortable from a respiratory point of view, without any supplemental oxygen. Examination of the head reveals no trauma. The eyes are without conjunctivitis or scleral icterus. The nose appears normal. The oral cavity is without pharyngitis. His neck veins are difficult to assess as he is somewhat obese with a BMI of 37, but there is no cervical adenopathy. His neck seems reasonably supple for his age of 86. His lungs are notable for crackles at the bases which are fairly impressive. Cardiac tones: A 2/6 aortic murmur. Irregular rate and rhythm is noted. The abdomen is somewhat distended and there may even be some component of anasarca in the lower abdomen. There is minimal epigastric tenderness. Hepatosplenomegaly and ascites are not appreciated. He has a very large scrotum, which is not inflamed or tender. No inguinal adenopathy can be appreciated, but there is considerable swelling. His legs are swollen, with 3 to 4+ edema basically all the way up to the groin. There were long dressings covering the lower legs below the knees which have not been removed apparently for a couple of weeks. I took these off and found that there was really nothing beneath them. His legs had venous stasis changes but were not erythematous or tender and there was no skin breakdown, and I do not think these dressings are needed anymore. His feet are swollen bilaterally but without skin breakdown. There are palpable pulses, though they are fairly faint. Above the knees there is some scarlatiniform erythema which is symmetrical in bilateral ankles, along the inner thighs, up into the groin. There are no bullae and there is no significant warmth or tenderness. The patient can move his extremities but he is weak diffusely, especially in his lower extremities, which are obviously very "heavy." His upper extremities are largely unremarkable. LABORATORIES: Include white count of 5100, hematocrit 30, platelets 166. Creatinine 2.15. LFTs normal, except a bilirubin of 3.4. Albumin 3.2. Procalcitonin is was measured yesterday and today and it is identical at 0.2. Urinalysis 0-5 white cells. A streptozyme is pending. Blood cultures are negative. A MRSA screen of the nares is negative. Chest x-ray was examined. It shows reduced lung volumes with some pulmonary congestion at the right more than the left side. Small bilateral pleural effusions are also noted. I think this could be atelectasis, pneumonia, or more likely CHF. Note that his BNP is near 10,000. IMPRESSION: I see no evidence for infection in this elderly gentleman. His chest x-ray is certainly not normal, with bilateral infiltrates, but the patient tells us he always is a bit short of breath with a cough and I suspect, given his known congestive heart failure and now strikingly elevated BNP, that this is fluid rather than pneumonia. He is currently afebrile, with a normal white count, negative procalcitonin, and comfortable without any supplemental oxygen, which argues against a significant pneumonia. His lower extremities represent lymphedema with venous stasis dermatitis. The area that was compressed by the dressings for the past couple of weeks was said to be very red and now is just a pale beige color consistent with resolving stasis dermatitis, whereas now the erythema has spread to the medial thighs bilaterally as the fluid has been "squeezed" out of the area below the knees and is now above the knees, where he is developing worsening edema of the thighs, scrotum, and lower abdomen. Bilateral cellulitis is essentially an unknown phenomena and I do not think this patient has it. RECOMMENDATIONS: 1. No antibiotics at this time. Antibiotics such as vancomycin and Zosyn he is currently receiving may serve to worsen his renal function, which will make management of his cardiac disease very very difficult. 2. ID will go ahead and sign off at this point. Please do not hesitate to call if there are additional questions or issues going forward. Thank you very much.
--- NOTE | 2016-10-26 13:30 | NUR ---
Evaluation completed. Please go to "Notes" then click on "Assessments and Notes" (bottom left corner of screen). Then select appropriate discipline tab on top of screen.
--- NOTE | 2016-10-26 16:10 | PCM.PNMED ---
Subjective Date of Service Oct 26, 2016 Subjective Patient states he does not have any worsening of cough. Denies any fever. He states he is transferred to hospital because of progressive functional decline. He states his lower extremity and scrotal swelling has been progressively worsening. He had some difficulty of urination and Waddell was inserted 3 days ago. On chart review patient was admitted in September due to CHF exacerbation. In September He was admitted with weight 114 KG and discharged with weight 104 KG after diuresis. He is admitted yesterday with weight of 115kg. his weight in June was 93-95 kg. ID discontinued antibiotics. Exam Vital Signs Vital Sign - Last Date Time Temp Pulse Resp B/P Pulse Ox O2 Delivery O2 Flow Rate FiO2 10/26/16 09:57 64 10/26/16 09:29 36.8 16 103/63 99 Room Air Intake and Output 10/25/16 10/25/16 10/26/16 Cumulative From/Thru 15:00 23:00 07:00 10/25/16 16:04 - 10/26/16 06:49 Intake Total 944 ml 944 ml Output Total 575 ml 575 ml Balance 369 ml 369 ml Intake Oral 0 ml 0 ml IV Total 944 ml 944 ml Output Urine Total 575 ml 575 ml Exam General: Laying in bed, somnolent, Obese, HEENT: Normocephalic, atraumatic, EOMI grossly, pupils 2 mm bilaterally, prominent JVD bilaterally, unable to appreciate lymph nodes, neck otherwise supple, mucous membranes dry. Cardiovascular: AICD deformity to anterior left chest, regular rate and rhythm, 2 out of 6 obstructing systolic murmur at left sternal border, peripheral pulses 2/6 radial. Unable to appreciate DP. Pulmonary: Unable to examine posterior posts, laterally coarse breath sounds on the left with fine rails, right axillary is CTA Abdominal: Abdomen is diffusely tender, patient unable to localize pain or convey rebound is present. Winces, moans, and splints when abdomen is pressed. Extremities: Moderate bilateral lower extremity edema, co-band wrapping in place , diffuse circumferential erythema to tibial region, ascending medially to the groin. Erythema but no warmth or tenderness. Scrotal swelling also noted Neuro: Difficult to assess secondary to mental status, movie projectionist strength is equal bilaterally, is able to follow commands. Cranial nerves II through XII are grossly intact and symmetric. MSK: Seed Trucker strength 4/5, equal bilaterally. Psych: Follows commands, states he is aware he is in the hospital. IVs and Medications Medications Reviewed: Medications were reviewed in detail Lab and Diagnostics Result Diagram: 10/26/16 0535 10/26/16 0535 X-Rays, CTs and MRIs Head CT without contrast performed 10/25/2016 IMPRESSION: No acute intracranial disease process. Dictated by: Emilie Saavedra MD, PhD on 10/25/2016 at 20:11 Chest x-ray performed 10/25/2016 IMPRESSION: 1. Small bilateral pleural fluid collections. 2. Bibasilar opacities compatible with atelectasis, pneumonia or aspiration. Dictated by: Emilie Saavedra MD, PhD on 10/25/2016 at 17:44 12-lead ECG EKG atrial fibrillation, heart rate 60, PVCs, left axis deviation, "consider inferior infarct, anterior lateral infarct, age indeterminant Assessment & Plan 86-year-old gentleman with documented medical history including chronic kidney disease, coronary artery disease congestive heart failure, history of aspiration pneumonia presents with worsening on chronic weakness and confusion, lower extremity edema with erythema extending up into the groin, very tender abdomen, opacities on x-ray concerning for pneumonia, and JVD # Acute on chronic systolic and diastolic congestive heart failure, POA. bilateral lower extremity edema with weeping, elevated BNP greater than 9000. Blood pressure in the low 100s, bradycardic patient was admitted in September due to CHF exacerbation. In September He was admitted with weight 114 KG and discharged with weight 104 KG after diuresis. He is admitted yesterday with weight of 115kg. his weight in June was 93-95 kg. Patient has significant interval weight gain from recent baseline. Continue metolazone and spironolactone. Switched torsemide to Lasix 40 minute, IV daily Daily weights,I/O (Diuretics from outpatient include Isosorbide 30 mg every morning, metolazone 5 mg daily, spironolactone 12.5 mg every morning, torsemide 60 mg daily) #Initially suspected pneumonia, ruled out X-ray demonstrates bibasilar opacities, cough, coarse breath sounds on the left , witnessed episode of aspiration with water ingesting medications. Pro-calcitonin 0.20 Sputum sample Gram stain, culture and sensitivity Speech therapy swallow eval Initially started on Zosyn and vancomycin. No evidence of infection. ID evaluated and discontinued antibiotics. MRSA screen # Low blood pressure and bradycardia 56 beats per minute, 97/56 map of 70 500 mL of IV NS given now Placed on telemetry Resume metoprolol 25 mg twice a day # Bilateral lower extremity swelling. Initial concern for erysipelas, now ruled out, POA. Initially started on Zosyn and vancomycin ID consulted and is discontinued antibiotics # Acute on chronic encephalopathy, present on admission, Active Attributed to pneumonia, CHF, ABG showed pH of 7.467, PCO2 35.2, PO2 69.0, bicarbonate 25.[address] was negative for acute bleed No jaundice, scleral icterus, Lactic acid 1.8, glucose only 111 # Supratherapeutic INR 3.44, POA, active Possibly due to antibiotic in the outpatient setting No signs of active bleeding Warfarin to be dosed by pharmacy # Acute on chronic kidney disease, present on admission, active BUN 59, creatinine 2.16, both are highest levels seen at any previous hospitalization. Most likely due to poor oral intake secondary to weakness and confusion. Nephrology consultation # Chronically elevated troponin, POA, active Troponin 0.070 which is consistent with previous values from Hospital admissions and stays. Patient is on telemetry as above Recheck with any new chest pain or arrhythmia. # Chronic hyperlipidemia, POA, active Continue atorvastatin 20 mg by mouth at bedtime # BPH, POA, stable Continue finasteride 5 mg by mouth every morning # Chronic anxiety, POA, active Continue outpatient medication lorazepam 0.5 mg every 6 hours when necessary for anxiety Patient admitted under inpatient status with expected length of stay > 2 midnights for severity of present symptoms, complexities of treatment plan and risk for adverse events Disposition discharged in 2-3 days after aggressive diuresis: GI Prophylaxis: Not indicated Resuscitation Status: DNR/DNI:Do Not Resuscitate/Intubate Jean Paul Chiu MD Oct 26, 2016 16:10
--- NOTE | 2016-10-26 16:35 | DRSVH ---
[facility] [address] [place] [address] Echocardiogram Report Name: SAMANTHA LATHAM Date: Height: 69 in Hospital Exam Location: [facility] Weight: 253 lb Gender: Male BSA: 2.3 m2 : 1930 Age: 86 yrs BP: 99/62 mmHg Reason For Study: SOB Ordering Physician: Performed By: [facility] Interpretation Summary The ejection fraction is estimated to be 45-50%. The right ventricle is moderately dilated. Right ventricular systolic function is moderately reduced. Leaflet mobility is moderately reduced. The aortic valve area is 1.8 centimeters squared by planimetry. There is moderate tricuspid regurgitation. The right ventricular systolic pressure is estimated at 68 mmHg assuming a right atrial pressure of 15 mm Hg. Compared to the prior exam, left ventricular function is slightly decreased. Procedure: A two-dimensional transthoracic echocardiogram with color flow and Doppler was performed. The study quality was technically adequate. Comparison is made with the echocardiogram of 06-09-16. The patient has a paced rhythm. Left Ventricle: The left ventricle is normal in size. There is mild asymmetric left ventricular hypertrophy. The ejection fraction is estimated to be 45-50%. Compared to the prior exam, left ventricular function is slightly decreased. There is mid anteroseptal wall hypokinesis. Severe septal hypokinesis. Flattened septum is consistent with RV pressure/volume overload. Right Ventricle: The right ventricle is moderately dilated. There is a pacemaker lead in the right ventricle. Right ventricular systolic function is moderately reduced. Atria: The left atrium is moderately dilated. The right atrium is severely dilated. There is a catheter/pacemaker lead seen in the right atrium. The interatrial septum is intact with no evidence for an atrial septal defect. Mitral Valve: The mitral valve leaflets appear borderline thickened, but open well. There is moderate mitral annular calcification. There is mild mitral regurgitation. Aortic Valve: The aortic valve is trileaflet. Leaflet mobility is moderately reduced. The calculated aortic valve area is 2.2 cm2. The aortic valve area is 1.8 centimeters squared by planimetry. No aortic regurgitation is present. Tricuspid Valve: The tricuspid valve leaflets are thin and pliable. There is moderate tricuspid regurgitation. The right ventricular systolic pressure is estimated at 68 mmHg assuming a right atrial pressure of 15 mm Hg. Pulmonic Valve: The pulmonic valve is not well seen, but is grossly normal. There is mild pulmonic regurgitation. Great Vessels: The aortic root is mildly dilated. The ascending aorta is mildly enlarged. The IVC is dilated (diameter is greater than 2.1 cm) and it collapses less than 50% with a sniff. This suggests a high right atrial pressure of 15 mm Hg. Pericardium/ Pleura There is no pericardial effusion. There is a moderate right-sided pleural effusion. MMode/2D Measurements & Calculations LVIDd LA dimension: 5.4 cm RA long axis: 6.8 cm LVOT diam: 2.5 cm : 4.2 cm AoV Openin.6 cm LVIDs LA A2 area: 23.9 cm RA area: 34.0 cm Ao root diam : 2.1 cm LA A4 area: 38.0 cm RA vol: 143.6 ml FS: 49.8 % LA length (vol) RA : 62.9 ml/m2 Aortic Jxn: 2.7 cm IVSd: 1.3 cm asc Aorta Diam LVPWd LA vol: 111.4 ml : 0.9cm LA vol index Ao Arch Diam (Prox Trans): 3.2 cm IVC diam: 2.5 cm TYRELL (plan) LV carter. diameter/BSA LV sys. diameter/BSA : 1.8 cm2 (cm/m^2): 1.8 (cm/m^2): 0.92 Doppler Measurements & Calculations Ao V2 max MV E max lucho MV E/A: 2.9 TR max lucho : 139.5 cm/sec : 103.7 cm/sec Med Peak E' Lucho : 363.2 cm/sec Ao max PG MV A max lucho TR max PG : 7.8 mmHg : 35.4 cm/sec E/E' med: 30.3 : 52.8 mmHg Ao mean PG MV P1/2t: 50.4 msec Lat Peak E' Lucho PA V2 max : 62.6 cm/sec LVOT Max Lucho E/E' lat: 16.0 PA mean PG : 57.5 cm/sec E/e' average : 0.77 mmHg TYRELL(I,D): 2.2 cm PA Accel Time sev ratio : 0.13 sec MV dec time MV P1/2t max lucho Ao V2 mean LV V1 max PG : 0.16 sec : 77.5 cm/sec MVA(P1/2t): 4.4 cm2 Ao V2 VTI: 32.6 cmLV V1 VTI TYRELL(V,D): 2.0 cm2 : 14.9 cm PA V2 mean TYRELL indexed to BSA : 40.8 cm/sec (cm^2/m^2): 0.97 Electronically signed by: Pool Roberts on Reading Physician:10/26/2016 04:34 PM
[2016-10-26] MEDS: Furosemide 10 mg/mL 4 mL Inj IVPUSH SCH (16:42)
--- NOTE | 2016-10-26 17:37 | NUR ---
Wound note Wound order received, 86 yo male admitted with cellulitis of ehsan lower legs and thighs with associated anasarca. Besides skin tears at left forearm which are currently treated with non stick pads and conform wrap the patient has no wounds or ulcers. Patient does report falling on left side some weeks ago and does have a large firm or indurated area suggestive of a hematoma, patient is chronically anticoagulated, perhaps this could be the nidus of his impressive cellulitis. Will follow if needed.
--- NOTE | 2016-10-26 17:49 | NUR ---
Activity/skin Pt remains on bedrest this shift thus far, PT in this AM to work with him. Positioned frequently and bed bath given this afternoon. Provided edematous scrotum with a sling for comfort, bilat LE's kept elevated. Pt alert, oriented with some forgetfulness. One c/o pain, PRN Tramadol given with effective results. Waddell is patent, draining julisa urine. Pt has been unable to produce a sputum sample thus far. Bed in lowest, locked position and call light in reach.
[2016-10-26] MEDS: MeTOProlol XL 25 mg ER24 Tablet PO SCH (19:51)
[2016-10-26] MEDS: Ascorbic Acid 500 mg Tablet PO SCH (19:51)
[2016-10-26] MEDS ORDERED: Vancomycin Inj 1,500 MG in 0.9% Sodium Chloride 500 ML IV SCH (20:00)
[2016-10-27] VITALS (9 sets, daily range): BP systolic 95–109; BP diastolic 54–63; PULSE 57–90; RESP 18–20; O2SAT 92–96
--- NOTE | 2016-10-27 05:32 | NUR ---
Pain/edema Patient c/o back pain. left side of abdomen firm. bruised, tender to touch. patients at bedside and states "that is how it has been since his fall". edema and redness to legs appears outside of marked lines. scrotum swollen, elevated with wash clothes and sling. patient given 2 tylenol 650mg at bed time. slept throughout the night. no c/o pain. q2 hour turns implemented. bed alarm on for safety
[2016-10-27 06:13] LABS: INR 2.91 ratio
[2016-10-27 08:19] LABS: BASOPHILS % (AUTO) 1.1 % (0-3); EOSINOPHILS % (AUTO) 7.8 % (0-5); MONOCYTES % (AUTO) 20.9 % (4-12); Mean Corpuscular Hemoglobin 26.3 pg (27.0-35.0); Mean Corpuscular Volume 82.2 fL (81-100); NEUTROPHILS % (AUTO) 53.3 % (40-74); Platelet Count 147 bil/L (150-400)
[2016-10-27 08:34] LABS: Magnesium 2.1 mg/dL (1.6-2.6)
[2016-10-27] MEDS: Potassium Chloride 20 mEq SR Tablet PO SCH (10:32)
[2016-10-27] MEDS: Furosemide 10 mg/mL 4 mL Inj IVPUSH SCH (10:34)
[2016-10-27] MEDS: Calcitonin 200 IU 3.7 mL Nasal Spray NASAL SCH (10:42)
[2016-10-27] MEDS: Omega-3 Fatty Acids 1,000 mg Capsule PO SCH (10:42)
[2016-10-27] MEDS: Lactobacillus Rhamnosus 10 Bil Unit Capsule PO SCH (10:43)
--- NOTE | 2016-10-27 10:50 | PCM.PHAPRO ---
Progress Decreased mentation, weakness Warfarin daily dosing Indication: A.Fib Goal INR: 2-3 Home dose: 2.5mg Tu, Carmen and 5mg M,W,F,Sa,Portillo Date Oct 26Oct 27 INR 3.44 3.18 2.91 INR change -0.26 -0.27 Warf Dose HOLD 1 mg 2.5MG Assessment/plan: * Warfarin dose today 2.5mg per home schedule * elevated INR on admit most likely from drug interaction with home cephalexin * patient also received 3 doses Zosyn which can elevate INR * off cephalexin (none since admission) and zosyn (last given 0246 on 10/26) and INR therapeutic * pharmacy to continue to follow INR and dose warfarin Gissell Ashby Pharm.D Oct 27, 2016 10:50
--- NOTE | 2016-10-27 10:55 | NUR ---
Palliative Care Palliative Care received verbal order from Dr Chiu 10/27/16 to assist with goals of care. Patient was admitted 10/25/16. He resides at [facility]. Meche Marshall () [phone] Amber Kuhn (daughter) [phone] Palliative Care to follow. Elizabeth Young
--- NOTE | 2016-10-27 11:22 | PCM.PNNEPH ---
Corinne Bynum DO 10/27/16 1122: Subjective Date of Service Oct 27, 2016 Subjective Patient awake and more alert today. He reports he is feeling lousy. His biggest complaints are that his feet hurt and his scrotum is uncomfortable due to swelling. Exam Vital Signs Vital Sign - Last Date Time Temp Pulse Resp B/P Pulse Ox O2 Delivery O2 Flow Rate FiO2 10/27/16 10:04 36.4 57 18 95/60 96 Room Air Intake and Output 10/26/16 10/26/16 10/27/16 Cumulative From/Thru 15:00 23:00 07:00 10/25/16 16:04 - 10/27/16 06:21 Intake Total 1140 ml 2084 ml Output Total 900 ml 1000 ml 2475 ml Balance 240 ml -1000 ml -391 ml Intake Oral 1000 ml 1000 ml IV Total 140 ml 1084 ml Output Urine Total 900 ml 1000 ml 2475 ml Exam General: Laying in bed, oriented to person and place HEENT: Normocephalic, atraumatic, EOMI grossly, JVD noted, mucous membranes dry. Cardiovascular: Regular rate and rhythm today, unable to appreciate a murmur Pulmonary: Expiratory wheezes noted in the anterior morillo Abdominal: Bowel tones present, nontender, nondistended, obese Extremities: moderate to severe pitting edema present all the way up the leg Radial pulse present and equivalent bilaterally, dorsalis pedis difficult to appreciate Significant scrotal edema, Waddell catheter in place IVs and Medications Medications Reviewed: Medications were reviewed in detail Lab and Diagnostics Result Diagram: 10/27/1652710/27/16527 Plan Plan: 1. Stage 3 chronic kidney disease. - Likely secondary to diabetes and hypertension. - Kidney function stable today. - Continue to monitor BMP. - Avoid nephrotoxic medications. - Await results of renal ultrasound. 2) Diastolic CHF. - Patient with significant edema below the waist. - Patient will require assistance with scrotal support in an effort to increase his comfort. - Continue spironolactone. - Increase Lasix to 60 mg IV BID. - Add chlorthalidone 25 mg daily. - Will re-evaluate tomorrow and continue to try to optimize diuresis. 3) Dementia. Thank you for the consultation. We will continue to follow along during this admission. Dallas Petit DO 10/27/16 1143: Exam Lab and Diagnostics Result Diagram: 10/27/16 0528 10/27/16 0528 Plan Plan: Patient was seen and examined along with Dr. Bynum. I will also discuss the case with the patient's . I agree with the above note and we have discussed internally reviewed the patient's therapeutic plan as detailed above. Corinne Bynum DO Oct 27, 2016 11:22 Dallas Petit DO Oct 27, 2016 11:43
--- NOTE | 2016-10-27 12:32 | NUR ---
LAKE Signed @ 1150AM
[2016-10-27] MEDS: MeTOProlol XL 25 mg ER24 Tablet PO SCH ×2 (12:58→20:30)
--- NOTE | 2016-10-27 15:07 | NUR ---
mentation/edema Pt is very forgetful and kept forgetting that he was in the hospital. A&O to self only. Pt took off tele leads and ear Sp02 censors multiple times. Pt was easily redirected and would usually fall back asleep. His stated that his confusion was worse than his baseline. Pt was cooperative with care. Pts scrotum and LE are edemas and weeping. Pts legs and scrotum are elevated and patient is being repositioned q2h
--- NOTE | 2016-10-27 15:19 | PCM.PNMED ---
Subjective Date of Service Oct 27, 2016 Subjective No new complaints or events. Patient more interactive today. Elevated bilirubin noted. Patient unable to stand and difficult to take standing weight to gauge diuresis Exam Vital Signs Vital Sign - Last Date Time Temp Pulse Resp B/P Pulse Ox O2 Delivery O2 Flow Rate FiO2 10/27/16 13:56 36.6 69 18 109/54 96 Room Air Intake and Output 10/26/16 10/26/16 10/27/16 Cumulative From/Thru 15:00 23:00 07:00 10/25/16 16:04 - 10/27/16 06:21 Intake Total 1140 ml 2084 ml Output Total 900 ml 1000 ml 2475 ml Balance 240 ml -1000 ml -391 ml Intake Oral 1000 ml 1000 ml IV Total 140 ml 1084 ml Output Urine Total 900 ml 1000 ml 2475 ml Exam General: Laying in bed, somnolent, Obese, HEENT: Normocephalic, atraumatic, EOMI grossly, pupils 2 mm bilaterally, prominent JVD bilaterally, unable to appreciate lymph nodes, neck otherwise supple, mucous membranes dry. Cardiovascular: AICD deformity to anterior left chest, regular rate and rhythm, 2 out of 6 obstructing systolic murmur at left sternal border, peripheral pulses 2/6 radial. Unable to appreciate DP. Pulmonary: Unable to examine posterior posts, laterally coarse breath sounds on the left with fine rails, right axillary is CTA Abdominal: Abdomen is diffusely tender, patient unable to localize pain or convey rebound is present. Winces, moans, and splints when abdomen is pressed. Extremities: Moderate bilateral lower extremity edema, co-band wrapping in place , diffuse circumferential erythema to tibial region, ascending medially to the groin. Erythema but no warmth or tenderness. Scrotal swelling also noted Neuro: Difficult to assess secondary to mental status, hands assembler strength is equal bilaterally, is able to follow commands. Cranial nerves II through XII are grossly intact and symmetric. MSK: Electronics Teacher strength 4/5, equal bilaterally. Psych: Follows commands, states he is aware he is in the hospital. IVs and Medications Medications Reviewed: Medications were reviewed in detail Lab and Diagnostics Result Diagram: 10/27/1628 10/27/16527 X-Rays, CTs and MRIs PROCEDURE: X-RAY CHEST ONE VIEW, PORTABLE ([id number]) INDICATIONS: chf exac TECHNIQUE: One view of the chest was acquired. COMPARISON: [facility], , CHEST 2 VIEW, 09/27/2016, 13:54. FINDINGS: Surgical changes and devices: Status post CABG procedure. Single lead cardiac pacer is stable. Lungs and pleura: Small bilateral pleural fluid collections noted. Bibasilar opacities noted. Mediastinum: Mediastinal contours appear normal. Heart size is normal. Bones and chest wall: No suspicious bony lesions. Overlying soft tissues appear unremarkable. IMPRESSION: 1. Small bilateral pleural fluid collections. 2. Bibasilar opacities compatible with atelectasis, pneumonia or aspiration. Dictated by: Emilie Saavedra MD, PhD on 10/25/2016 at 17:44 PROCEDURE: CT BRAIN WITHOUT CONTRAST ([id number]) Normal Assessment & Plan 86-year-old gentleman with documented medical history including chronic kidney disease, coronary artery disease congestive heart failure, history of aspiration pneumonia presents with worsening on chronic weakness and confusion, lower extremity edema with erythema extending up into the groin, very tender abdomen, opacities on x-ray concerning for pneumonia, and JVD # Acute on chronic systolic and diastolic congestive heart failure, POA. bilateral lower extremity edema with weeping, elevated BNP greater than 9000. Prior BNPs in 5000 Blood pressure in the low 100s, patient was admitted in September due to CHF exacerbation. In September He was admitted with weight 114 KG and discharged with weight 104 KG after diuresis. He is admitted yesterday with weight of 115kg. his weight in June was 93-95 kg. Patient has significant interval weight gain from recent baseline. Continue metolazone and spironolactone. Switched torsemide to Lasix 40 mg IV daily. Nephrology increased to 60 mg iv twice a day. Also added chlorthalidone Daily weights( difficult to get standing weight, patient unable to stand),I/O (Diuretics from outpatient include Isosorbide 30 mg every morning, metolazone 5 mg daily, spironolactone 12.5 mg every morning, torsemide 60 mg daily) Patient has multiple hospitalization for CHF exacerbation and rapid decline in functionality. Palliative consulted #Initially suspected pneumonia, ruled out X-ray demonstrates bibasilar opacities, cough, coarse breath sounds on the left , witnessed episode of aspiration with water ingesting medications. Pro-calcitonin 0.20 Sputum sample Gram stain, culture and sensitivity Speech therapy swallow eval Initially started on Zosyn and vancomycin. No evidence of infection. ID evaluated and discontinued antibiotics. MRSA screen negative #Elevated bilirubin -Bilirubin elevated at 3.4. Patient has chronic elevated bilirubin 1-2 . Likely due to liver congestion.RUQ US requested given doubling from baseline # Low blood pressure and bradycardia 56 beats per minute, 97/56 map of 70 500 mL of IV NS given now Placed on telemetry Resume metoprolol 25 mg twice a day # Bilateral lower extremity swelling. Initial concern for erysipelas, now ruled out, POA. Initially started on Zosyn and vancomycin ID consulted and is discontinued antibiotics # Acute on chronic encephalopathy, present on admission, Active Attributed to pneumonia, CHF, ABG showed pH of 7.467, PCO2 35.2, PO2 69.0, bicarbonate 25.[address] was negative for acute bleed No jaundice, scleral icterus, Lactic acid 1.8, glucose only 111 # Supratherapeutic INR 3.44, POA, active Possibly due to antibiotic in the outpatient setting No signs of active bleeding Warfarin to be dosed by pharmacy # Acute on chronic kidney disease, present on admission, active Initial BUN 59, creatinine 2.16, both are highest levels seen at any previous hospitalization. Most likely due to cardiorenal Nephrology consultation # Chronically elevated troponin, POA, active Troponin 0.070 which is consistent with previous values from Hospital admissions and stays. Patient is on telemetry as above Recheck with any new chest pain or arrhythmia. # Chronic hyperlipidemia, POA, active Continue atorvastatin 20 mg by mouth at bedtime # BPH, POA, stable Continue finasteride 5 mg by mouth every morning # Chronic anxiety, POA, active Continue outpatient medication lorazepam 0.5 mg every 6 hours when necessary for anxiety Patient admitted under inpatient status with expected length of stay > 2 midnights for severity of present symptoms, complexities of treatment plan and risk for adverse events Disposition discharged in 2-3 days after aggressive diuresis: GI Prophylaxis: Not indicated Resuscitation Status: DNR/DNI:Do Not Resuscitate/Intubate Jean Paul Chiu MD Oct 27, 2016 15:19
--- NOTE | 2016-10-27 15:44 | NUR ---
Social Work: Continued Discharge Planning D: EMR reviewed. Pt is on day 2 of hospitalization for CHF exacerbation. Per SW note 10/26, pt's spouse Mishel is unsure if she wants pt to return to [facility] because of distance. Mishel states she likely would want pt to go to SNF in [facility], SW provided pt with SNF list in the room. Per RN in AM multi-disciplinary rounds, pt is confused and pt's spouse stated he is more confused at the hospital than he is at baseline. SW attempted to discuss SNF choice with Mishel today. SW placed T/C and left voicemail regarding discharge plan. SW will continue to follow to determine pt and family choice for SNF. A: Pt for whom a SNF has been deemed medically necessary. P: Follow-up with spouse Mishel ([phone]) regarding SNF choice. Choicelist already provided. CRISTIAN Jordan
--- NOTE | 2016-10-27 16:29 | NUR ---
NUTRITION ASSESSMENT: ASSESS: 86 YO male admitted for CHF exacerbation and cellulitis. Pt with poor po intake x 2 days. Palliative consult pending. PMHx: Aspiration pneumonia, Chronic a-fib, CAD status post CABG, Pacemaker insertion, Hyperlipidemia, CHF, kidney disease, BPH LABS: Reviewed. BUN 53, Cr 2.07, Glu 106, Alb 3.1. MEDS: Reviewed. GI: No BM reported yet. SKIN: lower extremity cellulitis, followed by wound care. No pressure injuries noted. CURRENT WT: 114.9 kg. Adj BW: 83.3 kg. DIET: Dysphagia Mechanical. Po intake 0-25% of meals. EST. NEEDS: 7314-0535 kcals (25-30 kcals/kg Adj BW), 60-85 g protein (0.8-1.2 g/kg BW) NUTRITION DIAGNOSIS: 1.) Chewing / Swallowing difficulties related to delayed swallow as evidenced by current need for mechanically altered diet texture, ST following. 2.) Inadequate oral intake related to decreased ability to consume sufficient energy as evidenced by current po intake of 0-25% of meals x 2 days. NUTRITION INTERVENTION: 1.) Continue to advance diet as able per ST recommendations. 2.) Will add Gelatein plus to all trays. MONITOR / EVAL: PO intake, labs, nutritional status, POC. Follow per moderate nutritional risk guidelines.
--- NOTE | 2016-10-27 17:36 | DRSVH ---
PROCEDURE: US ABDOMEN INDICATIONS: elevated bilirubin TECHNIQUE: Real-time scanning was performed of the abdominal and retroperitoneal organs, with image documentatio n. COMPARISON: [facility], CT, ABDOMEN/PELVIS WITHOUT CONTRAS, 09/28/2016, 12:03. FINDINGS: Liver length: 12.68 cm Spleen length: 10.66 cm Liver: Liver is diffusely increased in echogenicity. No focal hepatic abnormalities identified. No rmal hepatic size. 8mm right hepatic lobe calcification. Gallbladder: Not well-visualized. Biliary ducts: Not well-visualized. Pancreas: Not well-seen. Spleen: Spleen is normal in size and homogeneous in echotexture. Kidneys: Not well-seen. Aorta: Not well-seen. Iliacs: Well-seen. IVC: Intrahepatic inferior vena cava is patent. Miscellaneous: No free abdominal fluid. IMPRESSION: 1. Increased hepatic echogenicity noted likely related to fatty infiltration of the liver but other s ources of hepatocellular disease cannot be excluded. Recommend clinical correlation. 2. Hepatic calcification. Dictated by: Raymon LIMA Interpreted: Glenda Lima MD on 10/27/2016 at 16:10 Approved by: Glenda Lima M.D. on 10/27/2016 at 17:34
[2016-10-27] MEDS ORDERED: Vancomycin Serum Trough XX ONE (19:30)
[2016-10-27] MEDS: Ascorbic Acid 500 mg Tablet PO SCH (21:19)
[2016-10-27] MEDS: Furosemide 10 mg/mL 10 mL Inj IVPUSH SCH (21:21)
[2016-10-28] VITALS (8 sets, daily range): BP systolic 95–108; BP diastolic 52–64; PULSE 60–68; RESP 18–20; O2SAT 92–96
--- NOTE | 2016-10-28 02:57 | NUR ---
BLOOD PRESSURE / SKIN 2344: assumed care of patient from SHILPA Sun. Metoprolol held at 2030 due to low blood pressure. b/p now 108/64. Continues w/ edema from abdomen/scrotum down to feet. Limbs carefully repositioned and supported w/ pillows thru the noc. Scrotum elevated w/ elongated folded pillowcase. Barrier cream to reddened buttocks. House lotion to UE's. Left wrist abraised area (old scabbed area) leaking blood from under scab. Area cleansed, 2x2 gauze and paper tape applied, timed/dated. Tele vpaced 60. Call light w/in reach, CTM for changes.
[2016-10-28 06:36] LABS: INR 2.65 ratio
[2016-10-28] MEDS: Potassium Chloride 20 mEq SR Tablet PO ONE ×2 (07:50→09:12)
[2016-10-28] MEDS: Potassium Chloride 20 mEq SR Tablet PO SCH ×2 (08:00→09:13)
[2016-10-28] MEDS: Omega-3 Fatty Acids 1,000 mg Capsule PO SCH ×2 (08:00→09:15)
[2016-10-28] MEDS: Lactobacillus Rhamnosus 10 Bil Unit Capsule PO SCH ×2 (08:30→09:16)
--- NOTE | 2016-10-28 08:35 | PCM.CONPAL ---
Date of Service Oct 28, 2016 Date of Hospital Admission: Oct 25, 2016 at 19:52 Date of Palliative Consult: Oct 28, 2016 Requesting Provider: Jean Paul Chiu MD Reason Palliative Care Consult: Goals of Care Discussion Reason for Consultation Palliative Care received verbal order from Dr Chiu 10/27/16 to assist with goals of care. Patient was admitted 10/25/16. He resides at [facility]. Meche Marshall () [phone] Amber Kuhn (daughter) [phone] Palliative Care Recommendation Summary of palliative recommendations: -Symptom management (Pain/other): per Devyn Team hospitalist, currently Dr. Chiu -DPOA/Advanced Directives/POLST: 1. Code: DNR/DNI 2. HCPOA: Pt's Mishel Fair. 3. reports that she would like to complete a new POLST today that reflects transition of care to comfort goals. She does not want pt to keep returning to hospital for further workup and evaluation of his chronic illnesses. She is interested in a hospice information visit. She can no longer care for her in the home setting and is planning on keeping him in a SNF until he dies naturally from his combined heart and kidney disease. 4. New POLST completed today: DNR/DNI/do not return to hospital/do NOT use antibiotics to treat future infections/do NOT insert feeding tube for artificial nutrition. signed the POLST. Her is not capacitated to make his healthcare decisions due to his combined illness, confusion, intermittent hallucinations. 5. describes a slow steady decline ability in his ability for self-care , ADLs, and decreased mobility due to recurrent edema and the weight gain from it making him have ongoing difficulties with balance. He is mainly bedbound in home and facility setting. She is no longer able to transfer him, as he does not have the strength to help. 6. Dr. Woodson contacted Dr. Caldwell's office to clarify that the patient has a single chamber pacemaker, NOT an AICD (as mistakenly documented in a few prior progress notes in EMR). A pacer does not have to be de-activated near end of life, it will simply not respond once the heart has no electrical activity. -Family/emotional support: 1. Mishel Fair () [phone] 2. Amber Kuhn (daughter) [phone]. Amber has only recently become reconnected to her father after some years of estrangement. Mishel has been a major paper making machine operator in helping her and his daughter develop a good relationship again after many years of distance. Problems: Resuscitation Status Resuscitation Status: DNR/DNI:Do Not Resuscitate/Intubate POLST Updates/Changes Previous POLST?: Yes POLST Last Review Date: Oct 28, 2016 Antibiotics: No Antibiotics Artificially Admin Nutrition: No Artifical Nutrition by Tube POLST Discussed with: Health Care Agent (DPOAHC), Spouse/Other (his Mishel Fair is his DPOAHC) POLST Review Outcome: New Form Completed . Advanced Care Planning Address: POLST Pt History History of Present Illness Mr. Cervantes is an 86-year-old gentleman with history of CHF, CAD status post CABG and AICD, A. fib on warfarin, previous hospitalization for aspiration pneumonia, presents to the [facility] ED via EMS from [facility] with stated complaint that he has had confusion worsening over the last couple of days, bilateral lower extremities edema with developing bilateral redness, warmth that extends into his medial legs and up into his groin, states that he has developed hallucinations and agitation and confusion with onset 3 weeks ago, additionally he fell 3 weeks ago onto his left side. Per emergency room documentation, there is not been any vomiting, fever. Patient denies with head shake any lightheadedness dizziness, chest pain, shortness of breath, "no pain anywhere." He is somnolent on exam and often does not answer questions limiting ROS. was able to convey that his abdomen is chronically tender and that is not new, over the last 2-3 days he has developed cold sweats and chills stating that they keep a pretty warm at the facility he is in an rarely complains about being cold, but has been shivering and asking for blankets last 2 days. Additionally he chronically has wet sounding cough, but there was an episode where he attempted to drink water in the last couple of days and had an aspiration event, states continue to be concerned for aspiration risk. is also able to shed additional light on the nature of his bilateral lower extremity edema and redness, reportedly he has had this before in the past where he was admitted to the hospital receiving diuretics as well as antibiotics and he responded to them and was discharged. For months he has had progressive lower extremity edema. Over the past few weeks his legs have turned red bilaterally below the knees. He recently, about two or three weeks ago while at a rehab or group home in the [facility], had leg wrappings applied to his lower extremities which apparently have not been removed in a couple of weeks. These are compressive type dressings applied to deal with his lymphedema. He has a history of peripheral vascular disease and had been seeing Wound Care. Hospital Course: Was admitted 10/25 for further evaluation and treatment and placed on empiric antibiotics for presumed aspiration pneumonia and possible cellulitis of legs, but work-up was negative and antibiotics stopped within [address] of admission. ID's Dr. Skelton has seen pt and signed off. Nephrology's Dr. Petit has seen pt and is helping medical team optimize gentle diuresis. Past Medical History Significant PMH Noted: Aspiration pneumonia Chronic atrial fibrillation on warfarin CAD status post CABG Pacemaker insertion Hyperlipidemia Ischemic heart disease Diastolic heart failure Stage 3 Chronic kidney disease. 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 Surgical History Bilateral knee replacement Basal cell carcinoma status post Mohs surgery Cardiac cath AICD placement Family History His father of alcohol related complications at the age of 55 and mother of old age at age of 96. Social History to Mishel who lives independently in their home in [facility]. 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 He has lived in [place] but now he and his reside in [place]. He was a former smoker,(one PPD x 10 years, quit in 1967) but quit decades ago. Does not drink alcohol. Typically lives with his . Most recently he has been in a correction facility at [facility] in [place]. Medications Current Medications: Current Medications Pharmacy Consult 1 ea 1 ea DAILY XX; Start 10/26/16 at 08:30; Stop 10/26/16 at 12:08; Status DC Vancomycin HCl/ Sodium Chloride 500 ml @ 333.333 mls/hr Q24H IV; Start at 20:00; Stop 10/26/16 at 20:00; Status DC Aspirin 81 mg DAILY PO Last administered on 10/27/16 10:34; Admin Dose 81 MG; Start 10/26/16 at 08:30 Atorvastatin Calcium 20 mg HS PO Last administered on 10/27/16 21:20; Admin Dose 20 MG; Start 10/26/16 at 21:00 Calcitonin [place] 1 spray DAILY NASAL Last administered on 10/27/16 10:42; Admin Dose 1 SPRAY; Start 10/26/16 at 08:30 Finasteride 5 mg DAILY PO Last administered on 10/27/16 10:41; Admin Dose 5 MG ; Start 10/26/16 at 08:30 Metolazone 5 mg DAILY PO Last administered on 10/27/16 10:44; Admin Dose 5 MG; Start 10/26/16 at 08:30; Stop 10/27/16 at 11:21; Status DC Spironolactone 12.5 mg DAILY PO Last administered on 10/27/16 10:43; Admin Dose 12.5 MG; Start 10/26/16 at 08:30 Torsemide 60 mg DAILY PO Last administered on 10/26/16 08:59; Admin Dose 60 MG ; Start 10/26/16 at 08:30; Stop 10/26/16 at 15:42; Status DC Ascorbic Acid 1,000 mg HS PO Last administered on 10/27/16 21:19; Admin Dose 1, 000 MG; Start 10/26/16 at 21:00 Cholecalciferol 1,000 unit DAILY PO Last administered on 10/27/16 10:33; Admin Dose 1,000 UNIT; Start 10/26/16 at 08:30 Cyanocobalamin 5,000 mcg DAILY PO Last administered on 10/27/16 10:34; Admin Dose 5,000 MCG; Start 10/26/16 at 08:30 Lactobacillus Rhamnosus 1 capsule DAILY PO Last administered on 10/27/16 10:43 ; Admin Dose 1 CAPSULE; Start 10/26/16 at 08:30 Non-Formulary Medication 300 mg HS PO; Start 10/26/16 at 21:00; Stop 10/26/16 at 21:00; Status DC Bisacodyl 10 mg DAILY PRN PO; Start 10/26/16 at 15:35 Docusate Sodium 250 mg HS PO; Start 10/26/16 at 21:00; Stop 10/26/16 at 21:00; Status DC Metolazone 5 mg DAILY PO; Start 10/26/16 at 15:35; Stop 10/26/16 at 15:42; Status DC Metoprolol Succinate 25 mg BID PO Last administered on 10/27/16 12:58; Admin Dose 25 MG; Start 10/26/16 at 20:30 Senna 25.8 mg HS PO Last administered on 10/27/16 21:20; Admin Dose 25.8 MG; Start 10/26/16 at 21:00 Spironolactone 12.5 mg DAILY PO; Start 10/26/16 at 15:35; Stop 10/26/16 at 15:42 ; Status DC Furosemide 40 mg DAILY IVPUSH Last administered on 10/27/16 10:34; Admin Dose 40 MG; Start 10/26/16 at 15:35; Stop 10/27/16 at 11:21; Status DC Docusate Sodium 250 mg HS PO Last administered on 10/27/16 21:20; Admin Dose 250 MG; Start 10/26/16 at 21:00 Furosemide 60 mg BID IVPUSH Last administered on 10/27/16 21:21; Admin Dose 60 MG; Start 10/27/16 at 20:30 Chlorthalidone 25 mg HS PO Last administered on 10/27/16 21:20; Admin Dose 25 MG; Start 10/27/16 at 21:00 Scheduled Aspirin (Aspirin) 81 Mg Tablet 81 MG PO QAM Atorvastatin (Lipitor) 20 Mg Tablet 20 MG PO HS Calcitonin [place] (Miacalcin) 30 [place]/3.7 Ml Nasalspr 1 SPRAY NA DAILY [place] in 1 Nostril (Alternating Nostrils) Daily Cephalexin (Keflex) 500 Mg Capsule 500 MG PO QID Cholecalciferol (Vitamin D3) (Vitamin D3) 1,000 Unit Tab.chew 1,000 UNIT PO QAM Cyanocobalamin (Vitamin B-12) (Vitamin B-12) 5,000 Mcg Tab.rapdis 5,000 MCG PO QAM Docusate Sodium (Colace) 100 Mg Capsule 250 MG PO HS Finasteride (Finasteride) 5 Mg Tablet 5 MG PO QAM L. Rhamnosus GG/Inulin (Culturelle Capsule) 10 Billion Cell-200 Mg Cap.sprink 1 EACH PO QAM Metolazone (Metolazone) 5 Mg Tablet 5 MG PO DAILY Metoprolol Succinate ER (Metoprolol Succinate ER) 25 Mg Tab.er.24h 25 MG PO BID [place]-3/Dha/Epa/Fish Oil (Fish Oil 1,000 mg Softgel) 1 Each Capsule 1 EACH PO QAM Potassium Chloride ER (Potassium Chloride ER) 20 Meq Tablet.er 40 MEQ PO TIDWM Sennosides (Senna) 8.6 Mg Tablet 25.8 MG PO HS Spironolactone (Spironolactone) 25 Mg Tablet 12.5 MG PO DAILY Torsemide (Torsemide) 20 Mg Tablet 60 MG PO DAILY Ubidecarenone (Coq-10) 100 Mg Capsule 300 MG PO HS Warfarin Sodium (Warfarin Sodium) 3 Mg Tablet 3 MG PO DAILY Scheduled PRN Acetaminophen (Acetaminophen) 325 Mg Capsule 650 MG PO Q8H PRN PRN For Pain Bisacodyl (Dulcolax) 5 Mg Tablet.dr 5-10 MG PO DAILY PRN PRN For Constipation Bisacodyl (Dulcolax Rectal) 10 Mg Supp.rect 10 MG RC DAILY PRN PRN SEVERE CONSTIPATION Lactobacillus Acidophilus (Acidophilus Lactobacillus) 1 Each Capsule 1 EACH PO BID PRN PRN ANTIOBIOTIC USE Lorazepam (Lorazepam) 0.5 Mg Tablet 0.5 MG PO Q6H PRN PRN For Anxiety Magnesium Hydroxide (Milk of Magnesia) 400 Mg/5 Ml Oral.susp Unknown Dose PO DAILY PRN PRN For Constipation Na Phos,M-B/Na Phos,Di-Ba (Fleet Enema) 133 Ml Enema 133 ML RC DAILY PRN PRN SEVERE CONSTIPATION Nitroglycerin SL (Nitroglycerin SL) 0.4 Mg Tab.subl 0.4 MG SL PRN For Chest Pain Tramadol (Tramadol) 50 Mg Tablet 25-50 MG PO Q6H PRN PRN For Pain Miscellaneous Medications Ascorbic Acid (Vitamin C) 500 Mg Capsule.er 1,000 MG PO Objective Findings Exam Vital Sign - Last Date Time Temp Pulse Resp B/P Pulse Ox O2 Delivery O2 Flow Rate FiO2 10/28/16 05:12 66 10/28/16 04:44 36.4 18 106/58 92 Room Air Intake and Output 10/27/16 10/27/16 10/28/16 Cumulative From/Thru 15:00 23:00 07:00 10/25/16 16:04 - 10/28/16 05:57 Intake Total 636 ml 375 ml 3095 ml Output Total 900 ml 1400 ml 4775 ml Balance -264 ml -1025 ml -1680 ml Intake Oral 636 ml 375 ml 2011 ml IV Total 1084 ml Output Urine Total 900 ml 1400 ml 4775 ml # Bowel Movements 1 1 Objective General: Laying in bed, oriented to person and place, at bedside reports he has had some visual hallucinations (non-threatening) in last 24 hours when she is visiting. HEENT: Normocephalic, atraumatic, EOMI grossly, JVD noted Cardiovascular: S1,S2, Paced rate and rhythm today, no audible murmur Pulmonary: Expiratory wheezes noted in the anterior morillo Abdominal: Bowel tones present, nontender, nondistended, obese Extremities: moderate to severe pitting edema present all the way up legs Skin: warm to touch, +erythema heels to slightly above b/l knees. Significant scrotal edema, Waddell catheter in place Lab/Diagnostics Lab and Imaging results reviewed in detail in EMR. Time spent Total time 70 minutes; >50% face to face with patient and/or family, providing counselling regarding plans and recommendations, and in care coordination with his/her medical teams. I also spent an additional 30 minutes counseling for advanced care planning with the patient/the patients family/the surrogate decision maker. Eliza Woodson MD Oct 28, 2016 08:35
[2016-10-28] MEDS: Furosemide 10 mg/mL 10 mL Inj IVPUSH SCH ×2 (09:15→21:51)
[2016-10-28] MEDS: Calcitonin 200 IU 3.7 mL Nasal Spray NASAL SCH (09:15)
[2016-10-28] MEDS: MeTOProlol XL 25 mg ER24 Tablet PO SCH ×2 (09:17→21:51)
--- NOTE | 2016-10-28 09:35 | NUR ---
Medication Pt unable to tolerate PO intake of numerous supplements and large potassium tabs. Pt reports gets too tired and chokes on meds. MD made aware pt is unable to consume K supplementation. This RN requesting IV option. Awaiting new in orders. Will continue to monitor,
--- NOTE | 2016-10-28 10:15 | NUR ---
Care Care of pt transferred. Report given to Caron Dill
--- NOTE | 2016-10-28 11:31 | NUR ---
GIULIA Waddell Patient had order to discontinue Waddell catheter. Nurse explained order to patient and . Waddell catheter removed at 1100 fully intact. Will continue to monitor for spontaneous output. Addendum: 10/28/16 at 1747 by MICHI BULLOCK RN Patient voiding spontaneously.
--- NOTE | 2016-10-28 12:43 | PCM.PNNEPH ---
Subjective Date of Service Oct 28, 2016 Subjective Patient reports that he is feeling somewhat improved today. He feet are not so bothersome. While the scrotal edema continues, it has diminished some as has his discomfort. He reports difficulty swallowing pills this morning. Exam Vital Signs Vital Sign - Last Date Time Temp Pulse Resp B/P Pulse Ox O2 Delivery O2 Flow Rate FiO2 10/28/16 09:13 36.7 60 20 95/59 92 Room Air Intake and Output 10/27/16 10/27/16 10/28/16 Cumulative From/Thru 15:00 23:00 07:00 10/25/16 16:04 - 10/28/16 05:57 Intake Total 636 ml 375 ml 3095 ml Output Total 900 ml 1400 ml 4775 ml Balance -264 ml -1025 ml -1680 ml Intake Oral 636 ml 375 ml 2011 ml IV Total 1084 ml Output Urine Total 900 ml 1400 ml 4775 ml # Bowel Movements 1 1 Exam General: Laying in bed, oriented to person and place HEENT: Normocephalic, atraumatic, EOMI grossly, JVD noted Cardiovascular: Regular rate and rhythm today, unable to appreciate a murmur Pulmonary: Expiratory wheezes noted in the anterior morillo Abdominal: Bowel tones present, nontender, nondistended, obese Extremities: moderate to severe pitting edema present all the way up the leg Radial pulse present and equivalent bilaterally, dorsalis pedis difficult to appreciate Significant scrotal edema, Waddell catheter in place IVs and Medications Medications Reviewed: Medications were reviewed in detail Lab and Diagnostics Result Diagram: 10/27/1652710/28/16527 Plan Plan: 1. Stage 3 chronic kidney disease. - Likely secondary to diabetes and hypertension. - Kidney function stable today. - Continue to monitor BMP. - Avoid nephrotoxic medications. 2) Diastolic CHF. - Patient with significant edema below the waist. - Patient will require assistance with scrotal support in an effort to increase his comfort. - Continue spironolactone. - Continue Lasix to 60 mg IV BID. - Continue chlorthalidone 25 mg daily. - Will re-evaluate tomorrow and continue to try to optimize diuresis. 3) Dementia. Thank you for the consultation. We will continue to follow along during this admission. Corinne Bynum DO Oct 28, 2016 12:43
--- NOTE | 2016-10-28 13:06 | NUR ---
Palliative care note D/A: Pt/family seen by Dr. Woodson today. They have made decision that they would like to have hospice services for pt and have these provided at SNF. (Note that pt is from [facility] but family expressing that they would like more local placement.) Have left message for [facility] dcp and have also left voicemail at [facility] intake office. It was originally thought that pt had a defibrillator which would need to be turned off prior to dc with hospice but in conversation with cardiology, Dr. Woodson has learned that pt actually has a pacemaker, which will need no intervention. P: Palliative to follow as needed. Hanh HERNANDEZ, CCM
--- NOTE | 2016-10-28 13:22 | PCM.PNMED ---
Subjective Date of Service Oct 28, 2016 Subjective Lower Extremities swelling improving. Responding to diuresis. Palliative Dr Kandice had a meeting with . She opts for hosp[facility] care at [facility]. 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 Exam Vital Signs Vital Sign - Last Date Time Temp Pulse Resp B/P Pulse Ox O2 Delivery O2 Flow Rate FiO2 10/28/16 13:09 36.3 61 18 98/58 92 Room Air Intake and Output 10/27/16 10/27/16 10/28/16 Cumulative From/Thru 15:00 23:00 07:00 10/25/16 16:04 - 10/28/16 05:57 Intake Total 636 ml 375 ml 3095 ml Output Total 900 ml 1400 ml 4775 ml Balance -264 ml -1025 ml -1680 ml Intake Oral 636 ml 375 ml 2011 ml IV Total 1084 ml Output Urine Total 900 ml 1400 ml 4775 ml # Bowel Movements 1 1 Exam General: Laying in bed, somnolent, Obese, HEENT: Normocephalic, atraumatic, EOMI grossly, pupils 2 mm bilaterally, prominent JVD bilaterally, unable to appreciate lymph nodes, neck otherwise supple, mucous membranes dry. Cardiovascular: Pacemaker to anterior left chest, regular rate and rhythm, 2 out of 6 obstructing systolic murmur at left sternal border, peripheral pulses 2 /6 radial. Unable to appreciate DP. Pulmonary: Unable to examine posterior posts, laterally coarse breath sounds on the left with fine rails, right axillary is CTA Abdominal: Abdomen is diffusely tender, patient unable to localize pain or convey rebound is present. Winces, moans, and splints when abdomen is pressed. Extremities: Moderate bilateral lower extremity edema, , diffuse circumferential erythema to tibial region, ascending medially to the groin. Erythema but no warmth or tenderness. Scrotal swelling also noted Neuro: Difficult to assess secondary to mental status, ship ceiler strength is equal bilaterally, is able to follow commands. Cranial nerves II through XII are grossly intact and symmetric. MSK: Cold Mill Inspector strength 4/5, equal bilaterally. Psych: Follows commands, states he is aware he is in the hospital. IVs and Medications Medications Reviewed: Medications were reviewed in detail Lab and Diagnostics Result Diagram: 10/27/16 0528 10/28/16 0528 Assessment & Plan 86-year-old gentleman with documented medical history including chronic kidney disease, coronary artery disease congestive heart failure, history of aspiration pneumonia presents with worsening on chronic weakness and confusion, lower extremity edema with erythema extending up into the groin, very tender abdomen, opacities on x-ray concerning for pneumonia, and JVD # Acute on chronic systolic and diastolic congestive heart failure, POA. bilateral lower extremity edema with weeping, elevated BNP greater than 9000. Prior BNPs in 5000 Blood pressure in the low 100s, patient was admitted in September due to CHF exacerbation. In September He was admitted with weight 114 KG and discharged with weight 104 KG after diuresis. He is admitted yesterday with weight of 115kg. his weight in June was 93-95 kg. Patient has significant interval weight gain from recent baseline. Continue metolazone and spironolactone. Switched torsemide to Lasix 40 mg IV daily. Nephrology increased to 60 mg iv twice a day. Also added chlorthalidone Daily weights( difficult to get standing weight, patient unable to stand),I/O (Diuretics from outpatient include Isosorbide 30 mg every morning, metolazone 5 mg daily, spironolactone 12.5 mg every morning, torsemide 60 mg daily) Patient has multiple hospitalization for CHF exacerbation and rapid decline in functionality. Palliative consulted Palliative Dr Woodson had a meeting with . Patient has some cognitive impairment and some confusion. She opts for hospice care at [facility]. 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 Pro-calcitonin 0.20 Sputum sample Gram stain, culture and sensitivity Speech therapy swallow eval Initially started on Zosyn and vancomycin. No evidence of infection. ID evaluated and discontinued antibiotics. MRSA screen negative #Elevated bilirubin -Bilirubin elevated at 3.4. Patient has chronic elevated bilirubin 1-2 . Likely due to liver congestion.RUQ US requested given doubling from baseline, shows fatty infiltration of the liver # Bilateral lower extremity swelling. Initial concern for erysipelas, now ruled out, POA. Initially started on Zosyn and vancomycin ID consulted and is discontinued antibiotics # Acute on chronic encephalopathy, present on admission, Active Attributed to pneumonia, CHF, ABG showed pH of 7.467, PCO2 35.2, PO2 69.0, bicarbonate 25.[address] was negative for acute bleed No jaundice, scleral icterus, Lactic acid 1.8, glucose only 111 # Supratherapeutic INR 3.44, POA, active Possibly due to antibiotic in the outpatient setting No signs of active bleeding Discontinue Warfarin. Family opted for hospice # Acute on chronic kidney disease, present on admission, active Initial BUN 59, creatinine 2.16, both are highest levels seen at any previous hospitalization. Most likely due to cardiorenal # Chronically elevated troponin, POA, active Troponin 0.070 which is consistent with previous values from Hospital admissions and stays. Patient is on telemetry as above Recheck with any new chest pain or arrhythmia. # Chronic hyperlipidemia, POA, active discontinue atorvastatin 20 mg by mouth Family opted for hospice # BPH, POA, stable continue finasteride 5 mg by mouth # Chronic anxiety, POA, active Continue outpatient medication lorazepam 0.5 mg every 6 hours when necessary for anxiety Palliative Dr Woodson had a meeting with . Patient has some cognitive impairment and some confusion. She opts for hospice care at [facility]. 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
--- NOTE | 2016-10-28 14:33 | NUR ---
Social Work: Continued d/c planning HEAD STOCK TRANSFER CLERK acknowledges MD order for hospice info visit. HEAD STOCK TRANSFER CLERK left voice mail with Hospice requesting info visit. HEAD STOCK TRANSFER CLERK awaiting phone call back. CRISTIAN Napier
[2016-10-29 00:22] VITALS: BP 106/70; PULSE 70; RESP 18; O2SAT 95
[2016-10-29 05:30] LABS: INR 2.51 ratio
[2016-10-29 06:39] VITALS: PULSE 63
[2016-10-29 08:00] VITALS: PULSE 63
[2016-10-29] MEDS: Potassium Chloride 20 mEq SR Tablet PO SCH (08:12)
[2016-10-29] MEDS: Lactobacillus Rhamnosus 10 Bil Unit Capsule PO SCH (08:13)
[2016-10-29] MEDS: Furosemide 10 mg/mL 10 mL Inj IVPUSH SCH (08:13)
[2016-10-29] MEDS: Calcitonin 200 IU 3.7 mL Nasal Spray NASAL SCH (08:14)
[2016-10-29] MEDS: MeTOProlol XL 25 mg ER24 Tablet PO SCH (08:27)
--- NOTE | 2016-10-29 09:10 | NUR ---
Social Work: Continued d/c planning Voice mail received from [facility], hospice info visit set for today at 10:30am-11am. CLOTH TRIMMER HAND will continue to follow. CRISTIAN Napier
[2016-10-29 09:43] VITALS: BP 111/67; PULSE 61; RESP 18; O2SAT 94
--- NOTE | 2016-10-29 10:24 | NUR ---
Social Work: Continued d/c planning RAISE DRILL OPERATOR met with pt and spouse, SNF choice list previously given. Pt's states their preferences are [facility], 2-[facility], 3-[facility]. RAISE DRILL OPERATOR referred pt to all 3 locations. Left voice mail with [facility], and spoke with admissions with [facility] and [facility], requested decision by 12:00noon today by all locations. RAISE DRILL OPERATOR will continue to follow. CRISTIAN Napier Addendum: 10/29/16 at 1126 by SYLWIA MACHADO RAISE DRILL OPERATOR informed by [facility] and pt's that they are not ready for hospice. Pt's states she is no longer interested in [facility] and now has a preference of 1-[facility], [facility], 3-[facility]. RAISE DRILL OPERATOR left voice mail with [facility] and informed [facility] that they are no longer interested in their facility. CRISTIAN Napier Addendum: 10/29/16 at 1411 by SYLWIA MACHADO CRISTIAN spoke with [facility] and [facility] has accepted pt. CRISTIAN updated RN, and pt. CRISTIAN requested 3:00pm transport for pt. Bryant will get back to RAISE DRILL OPERATOR. Cristian Napier
--- NOTE | 2016-10-29 12:42 | PCM.DIMED ---
Discharge Instructions Date of Service Oct 29, 2016 Dates of Hospitalization Oct 25, 2016 at 19:52 Discharge Diagnosis Discharge Diagnosis # Acute on chronic systolic and diastolic congestive heart failure, POA. #Initially suspected pneumonia, ruled out # Bilateral lower extremity due to CHF. Initial concern for erysipelas, now ruled out, POA. # Acute on chronic encephalopathy, present on admission, Active # Initial Supratherapeutic INR 3.44, POA, resolved # Acute on chronic kidney disease, present on admission, active # Chronically elevated troponin, POA, active # Chronic hyperlipidemia, POA, active # BPH, POA, stable # Chronic anxiety, POA, active Diet Discharge Diet: Low fat, Low Sodium Activity Discharge Activity: Other (continue physical therapy at longterm facility) Call your provider Call your provider for: Fever or Chills, Shortness of breath, Bleeding, Chest pain, Vomitting, Excessive diarrhea, Weakness (unilateral) Patient Instructions Patient Instructions You were hospitalized due to CHF exacerbation. You were treated with IV diuretics and responded somehow.palliative team had meeting with . She opted for comfort care. DNR/DNI/do not return to hospital/do NOT use antibiotics to treat future infections/do NOT insert feeding tube for artificial nutrition. signed the POLST.Her is not capacitated to make his healthcare decisions due to his combined illness, confusion, intermittent hallucinations. We have discontinued all comfort unrelated medications including warfarin. Follow-up Provider: Marv Young MD Follow-up with PCP in: 3 weeks (after discharge from longterm facility) Jean Paul Chiu MD Oct 29, 2016 12:42
[2016-10-29] MEDS ORDERED: TAMS0.4C98 PO (12:44)
--- NOTE | 2016-10-29 13:10 | PCM.DC.MED ---
Discharge Summary Date of Service Oct 29, 2016 Dates of Hospitalization Date of Hospital Admission Oct 25, 2016 at 19:52 Date of Discharge: Oct 29, 2016 Providers: Admitting Physician: Jean Paul Marshall MD Primary Care Physician: Ej Goodwin DO Attending Physician: Jean Paul Marshall MD Diagnosis at Time of Discharge Diagnosis at Time of Discharge # Acute on chronic systolic and diastolic congestive heart failure, POA. #Initially suspected pneumonia, ruled out # Bilateral lower extremity due to CHF. Initial concern for erysipelas, now ruled out, POA. # Acute on chronic encephalopathy, present on admission, Active # Initial Supratherapeutic INR 3.44, POA, resolved # Acute on chronic kidney disease, present on admission, active # Chronically elevated troponin, POA, active # Chronic hyperlipidemia, POA, active # BPH, POA, stable # Chronic anxiety, POA, active Consultations Infectious diseases Dr Skelton Nephrology Dr. Petit Palliative Dr Woodson Procedures ECG 12 Lead PROCEDURE: US ABDOMEN INDICATIONS: elevated bilirubin IMPRESSION: 1. Increased hepatic echogenicity noted likely related to fatty infiltration of the liver but other sources of hepatocellular disease cannot be excluded. Recommend clinical correlation. 2. Hepatic calcification. Dictated by: Raymon Arrington RRA Interpreted: Glenda Lima MD on 10/27/2016 at 16: 10 PROCEDURE: CT BRAIN WITHOUT CONTRAST ([id number]) INDICATIONS: Acute mental status changes. IMPRESSION: No acute intracranial disease process. Dictated by: Emilie Saavedra MD, PhD on 10/25/2016 at 20:11 PROCEDURE: X-RAY CHEST ONE VIEW, PORTABLE ([id number]) INDICATIONS: chf exac IMPRESSION: 1. Small bilateral pleural fluid collections. 2. Bibasilar opacities compatible with atelectasis, pneumonia or aspiration. Dictated by: Emilie Saavedra MD, PhD on 10/25/2016 at 17:44 Brief History per palliative note Mr. Cervantes is an 86-year-old gentleman with history of CHF, CAD status post CABG and AICD, A. fib on warfarin, previous hospitalization for aspiration pneumonia, presents to the [facility] ED via EMS from [facility] with stated complaint that he has had confusion worsening over the last couple of days, bilateral lower extremities edema with developing bilateral redness, warmth that extends into his medial legs and up into his groin, states that he has developed hallucinations and agitation and confusion with onset 3 weeks ago, additionally he fell 3 weeks ago onto his left side. Per emergency room documentation, there is not been any vomiting, fever. Patient denies with head shake any lightheadedness dizziness, chest pain, shortness of breath, "no pain anywhere." He is somnolent on exam and often does not answer questions limiting ROS. was able to convey that his abdomen is chronically tender and that is not new, over the last 2-3 days he has developed cold sweats and chills stating that they keep a pretty warm at the facility he is in an rarely complains about being cold, but has been shivering and asking for blankets last 2 days. Additionally he chronically has wet sounding cough, but there was an episode where he attempted to drink water in the last couple of days and had an aspiration event, states continue to be concerned for aspiration risk. is also able to shed additional light on the nature of his bilateral lower extremity edema and redness, reportedly he has had this before in the past where he was admitted to the hospital receiving diuretics as well as antibiotics and he responded to them and was discharged. For months he has had progressive lower extremity edema. Over the past few weeks his legs have turned red bilaterally below the knees. He recently, about two or three weeks ago while at [place] [facility], had leg wrappings applied to his lower extremities which apparently have not been removed in a couple of weeks. These are compressive type dressings applied to deal with his lymphedema. He has a history of peripheral vascular disease and had been seeing Wound Care. Hospital Course: Was admitted 10/25 for further evaluation and treatment and placed on empiric antibiotics for presumed aspiration pneumonia and possible cellulitis of legs, but work-up was negative and antibiotics stopped within 48 [address] of admission. ID's Dr. Skelton has seen pt and signed off. Nephrology's Dr. Petit has seen pt and is helping medical team optimize gentle diuresis. Hospital Course 86-year-old gentleman with documented medical history including chronic kidney disease, coronary artery disease congestive heart failure, history of aspiration pneumonia presents with worsening on chronic weakness and confusion, lower extremity edema with erythema extending up into the groin, very tender abdomen, opacities on x-ray concerning for pneumonia, and JVD # Acute on chronic systolic and diastolic congestive heart failure, POA. bilateral lower extremity edema with weeping, elevated BNP greater than 9000. Prior BNPs in 4999 patient was admitted in September due to CHF exacerbation. In September He was admitted with weight 114 KG and discharged with weight 104 KG after diuresis. He is admitted yesterday with weight of 115kg. his weight in June was 93-95 kg. Patient has significant interval weight gain from recent baseline. Continue metolazone and spironolactone. Switched torsemide to Lasix 40 mg IV daily. Nephrology increased to 60 mg iv twice a day. Also added chlorthalidone Continue metolazone 5 mg daily, spironolactone 12.5 mg every morning, torsemide 60 mg daily for comfort purposes Palliative Dr Woodson had a meeting with . Patient has some cognitive impairment and some confusion. She opts for hospice care at shelter facility. Notified dyehouse worker New POLST completed 10/28: DNR/DNI/do not return to hospital/do NOT use antibiotics to treat future infections/do NOT insert feeding tube for artificial nutrition. signed the POLST. Her is not capacitated to make his healthcare decisions due to his combined illness, confusion, intermittent hallucinations. #Initially suspected pneumonia, ruled out X-ray demonstrates bibasilar opacities, cough, coarse breath sounds on the left , witnessed episode of aspiration with water ingesting medications. Initially started on Zosyn and vancomycin. No evidence of infection. ID evaluated and discontinued antibiotics. MRSA screen negative #Elevated bilirubin -Bilirubin elevated at 3.4. Patient has chronic elevated bilirubin 1-2 . Likely due to liver congestion.RUQ US requested given doubling from baseline, shows fatty infiltration of the liver # BPH/acute urinary retention, POA, stable -Patient had urinary retention 3 days prior to hospitalization which required [place] insertion. added Flomax. Removed 10/28. Voiding well. continue finasteride 5 mg by mouth # Bilateral lower extremity swelling. Initial concern for erysipelas, now ruled out, POA. Initially started on Zosyn and vancomycin ID consulted and discontinued antibiotics # Acute on chronic encephalopathy, present on admission, Active Attributed to CHF, ABG showed pH of 7.467, PCO2 35.2, PO2 69.0, bicarbonate 25.[address] was negative for acute bleed Lactic acid 1.8, glucose only 111 # Supratherapeutic INR 3.44, POA, active Possibly due to antibiotic in the outpatient setting No signs of active bleeding Discontinue Warfarin. Family opted for hospice # Acute on chronic kidney disease, present on admission, active Initial BUN 59, creatinine 2.16, both are highest levels seen at any previous hospitalization. Most likely due to cardiorenal # Chronically elevated troponin, POA, active Troponin 0.070 which is consistent with previous values from Hospital admissions and stays. Patient is on telemetry as above Recheck with any new chest pain or arrhythmia. # Chronic hyperlipidemia, POA, active discontinue atorvastatin 20 mg by mouth Family opted for hospice # Chronic anxiety, POA, active Continue outpatient medication lorazepam 0.5 mg every 6 hours when necessary for anxiety New POLST completed 10/28: DNR/DNI/do not return to hospital/do NOT use antibiotics to treat future infections/do NOT insert feeding tube for artificial nutrition. signed the POLST. Her is not capacitated to make his healthcare decisions due to his combined illness, confusion, intermittent hallucinations. Discharge to [facility] on oral diuretics for comfort Exam Vital Signs (Last) Date Time Temp Pulse Resp B/P Pulse Ox O2 Delivery O2 Flow Rate FiO2 10/29/16 09:43 36.4 61 18 111/67 94 Room Air Exam eneral: Laying in bed, somnolent, Obese, HEENT: Normocephalic, atraumatic, EOMI grossly, pupils 2 mm bilaterally, prominent JVD bilaterally, unable to appreciate lymph nodes, neck otherwise supple, mucous membranes dry. Cardiovascular: Pacemaker to anterior left chest, regular rate and rhythm, 2 out of 6 obstructing systolic murmur at left sternal border, peripheral pulses 2 /6 radial. Unable to appreciate DP. Pulmonary: Unable to examine posterior posts, laterally coarse breath sounds on the left with fine rails, right axillary is CTA Abdominal: Abdomen is diffusely tender, patient unable to localize pain or convey rebound is present. Winces, moans, and splints when abdomen is pressed. Extremities: Moderate bilateral lower extremity edema, , diffuse circumferential erythema to tibial region, ascending medially to the groin. Erythema but no warmth or tenderness. Scrotal swelling also noted Neuro: Difficult to assess secondary to mental status, vacuum cleaner operator strength is equal bilaterally, is able to follow commands. Cranial nerves II through XII are grossly intact and symmetric. MSK: Trauma Doctor strength 4/5, equal bilaterally. Psych: Follows commands, states he is aware he is in the hospital. Test 10/25/16 16:35 10/25/16 19:56 10/25/16 23:33 10/26/16 05:35 Activated Partial Thromboplast Time 43.0sec (22.8-33.0) Hemoglobin A1c 5.8% (4.8-5.6) Troponin T 0.070ug/L (0.0-0.011) Pro-B-Type Natriuretic Peptide 9881pg/mL (0-486) Lactic Acid Level 1.8mmol/L (0.4-2.0) Urine Color Yellow (YELLOW) Urine Appearance Clear (CLEAR,HAZY) Urine pH 5.0 (5.0-8.0) Urine Specific [place] 1.010 (1.003-1.035) Urine Protein Negativemg/dL (NEG,TRACE) Urine Glucose (UA) Negativemg/dL (NEGATIVE) Urine Ketones Negativemg/dL (NEGATIVE) Urine Occult Blood Negative (NEGATIVE) Urine Nitrite Negative (NEGATIVE) Urine Bilirubin Negative (NEGATIVE) Urine Urobilinogen Normalmg/dL (NORMAL) Urine Leukocyte Esterase Negative (NEGATIVE) Urine RBC 0-2/hpf (0-2) Urine WBC 0-5/hpf (0-5) Urine Epithelial Cells Occasional/hpf (NONE-MOD) Urine Crystals Amorphous urates (NONE Urine Bacteria None/hpf (NONE-FEW) Urine Hyaline Casts >20/lpf (NONE) Urine Granular Casts None seen (NONE SEEN) Urine Waxy Casts None seen (NONE SEEN) Urine Red Blood Cell Casts None seen (NONE SEEN) Urine White Blood Cell Casts None seen (NONE SEEN) Urine Mucus Present (None Seen) Urine Trichomonas None seen (NONE SEEN) Urine Yeast None (NONE SEEN) Urinalysis Comment None Urine Culture Reflexed Not indicated Streptozyme 28.0IU/mL (0.0-200.0) Test 10/27/16 05:28 10/28/16 05:28 10/29/16 04:30 White Blood Count 5.5th/mm3 (3.8-10.1) Red Blood Count 3.53mil/mm3 (4.40-5.80) Hemoglobin 9.3g/dL (13.8-17.2) Hematocrit 29.0% (41.0-50.0) Mean Corpuscular Volume 82.2fL (81-100) Mean Corpuscular Hemoglobin 26.3pg (27.0-35.0) Mean Corpuscular Hemoglobin Concent 32.1% (32.0-37.0) Red Cell Distribution Width 21.8% (12.3-15.4) Platelet Count 147bil/L (150-400) Neutrophils (%) (Auto) 53.3% (40-74) Lymphocytes (%) (Auto) 16.7% (14-46) Monocytes (%) (Auto) 20.9% (4-12) Eosinophils (%) (Auto) 7.8% (0-5) Basophils (%) (Auto) 1.1% (0-3) Magnesium Level 2.1mg/dL (1.6-2.6) Sodium Level 139mEq/L (134-144) Potassium Level 3.3mEq/L (3.5-5.2) Chloride Level 98mEq/L (97-108) Carbon Dioxide Level 25mmol/L (18-29) Blood Urea Nitrogen 51mg/dL (8-27) Creatinine 2.04mg/dL (0.76-1.27) Estimat Glomerular Filtration Rate 33mL/min (>59) Glucose Level 111mg/dL (60-99) Calcium Level 8.9mg/dL (8.5-10.1) Total Bilirubin 2.9mg/dL (0.0-1.2) Direct Bilirubin 2.0mg/dL (0.0-0.3) Aspartate Amino Transf (AST/SGOT) 21U/L (0-50) Alanine Aminotransferase (ALT/SGPT) 15U/L (0-44) Alkaline Phosphatase 164U/L (25-160) Total Protein 6.1g/dL (6.4-8.4) Albumin 3.2g/dL (3.4-5.0) Procalcitonin 0.14ng/mL (0.00-0.08) Prothrombin Time 27.4sec (8.1-12.5) Prothromb Time International Ratio 2.51ratio Discharge Medications Discharge Medications Aspirin (Aspirin) 81 Mg Tablet 81 MG PO QAM (Reported) Calcitonin [place] (Miacalcin) 30 [place]/3.7 Ml Nasalspr 1 SPRAY NA DAILY ( Reported) [place] in 1 Nostril (Alternating Nostrils) Daily Docusate Sodium (Colace) 100 Mg Capsule 250 MG PO HS (Reported) Finasteride (Finasteride) 5 Mg Tablet 5 MG PO QAM (Reported) Metolazone (Metolazone) 5 Mg Tablet 5 MG PO DAILY (Reported) Metoprolol Succinate ER (Metoprolol Succinate ER) 25 Mg Tab.er.24h 25 MG PO BID (Reported) Potassium Chloride ER (Potassium Chloride ER) 20 Meq Tablet.er 40 MEQ PO TIDWM ( Reported) Sennosides (Senna) 8.6 Mg Tablet 25.8 MG PO HS (Reported) Spironolactone (Spironolactone) 25 Mg Tablet 12.5 MG PO DAILY (Reported) Tamsulosin (Flomax) 0.4 Mg Capsule 0.4 MG PO DAILY Prescribed by: JEAN PAUL MARSHALL MD Torsemide (Torsemide) 20 Mg Tablet 60 MG PO DAILY (Reported) As needed Acetaminophen (Acetaminophen) 325 Mg Capsule 650 MG PO Q8H PRN PRN For Pain ( Reported) Bisacodyl (Dulcolax) 5 Mg Tablet.dr 5-10 MG PO DAILY PRN PRN For Constipation ( Reported) Bisacodyl (Dulcolax Rectal) 10 Mg Supp.rect 10 MG RC DAILY PRN PRN SEVERE CONSTIPATION (Reported) Lorazepam (Lorazepam) 0.5 Mg Tablet 0.5 MG PO Q6H PRN PRN For Anxiety (Reported ) Magnesium Hydroxide (Milk of Magnesia) 400 Mg/5 Ml Oral.susp Unknown Dose PO DAILY PRN PRN For Constipation (Reported) Na Phos,M-B/Na Phos,Di-Ba (Fleet Enema) 133 Ml Enema 133 ML RC DAILY PRN PRN SEVERE CONSTIPATION (Reported) Nitroglycerin SL (Nitroglycerin SL) 0.4 Mg Tab.subl 0.4 MG SL PRN For Chest Pain (Reported) Tramadol (Tramadol) 50 Mg Tablet 25-50 MG PO Q6H PRN PRN For Pain (Reported) Followup Plan Disposition: shelter facility,[facility] Discharge Diet: Low fat, Low Sodium Discharge Activity: Other (continue physical therapy at shelter facility) Patient Instructions You were hospitalized due to CHF exacerbation. You were treated with IV diuretics and responded somehow.palliative team had meeting with . She opted for comfort care. DNR/DNI/do not return to hospital/do NOT use antibiotics to treat future infections/do NOT insert feeding tube for artificial nutrition. signed the POLST.Her is not capacitated to make his healthcare decisions due to his combined illness, confusion, intermittent hallucinations. We have discontinued all comfort unrelated medications including warfarin. Follow-up Provider: Marv Young MD Follow-up with PCP in: 3 weeks (after discharge from shelter facility) Time spent 35 minutes copies to: Marv Young MD, Melaku MD Oct 29, 2016 13:10
--- NOTE | 2016-10-29 14:38 | NUR ---
Social Work: Discharge Data: Pt is on day 4 of hospitalization. EMR reviewed. D/C orders are in. CLOCKMAKER APPRENTICE spoke with Annette with admissions who confirms they can transport pt at 3:30pm today. Clinicals faxed. CLOCKMAKER APPRENTICE informed family and pt, RN, UA, and MD. No further d/c planning needs at this time. CLOCKMAKER APPRENTICE will continue to follow if needs arise. Assessment: Pt who is independent at baseline. Plan: Pt will d/c to [facility] via cabulance at 3:30pm today. No further d/c planning needs at this time. CLOCKMAKER APPRENTICE will continue to follow if needs arise. CRISTIAN Napier
[2016-10-29 14:43] VITALS: BP 113/72; PULSE 60; RESP 18; O2SAT 97
--- NOTE | 2016-10-29 15:31 | NUR ---
discharge report called to [facility]. pt and have no questions at this time. belongings bagged up and waiting on transport to care facility
== END 2016-10-29 15:45 | DRG 291 ==
LOC: SED 16:00 → MPC 19:52
PROVIDERS: ADMIT Internal Medicine; ATTEND Hospitalist
PROC: 4A033R1 Measurement of Arterial Saturation, Peripheral, Percutaneous Approach (ICD-10-PCS; principal; 2016-10-25)
DX: I13.0 Hypertensive heart and chronic kidney disease with heart failure and stage 1 through stage 4 chronic kidney disease, or unspecified chronic kidney disease (principal); I50.43 Acute on chronic combined systolic (congestive) and diastolic (congestive) heart failure; G93.40 Encephalopathy, unspecified; N17.9 Acute kidney failure, unspecified; N18.3 Chronic kidney disease, stage 3 (moderate); I25.10 Atherosclerotic heart disease of native coronary artery without angina pectoris; E78.5 Hyperlipidemia, unspecified; Z95.0 Presence of cardiac pacemaker; Z95.1 Presence of aortocoronary bypass graft; I48.2 Chronic atrial fibrillation; Z79.01 Long term (current) use of anticoagulants; N40.0 Benign prostatic hyperplasia without lower urinary tract symptoms; F41.9 Anxiety disorder, unspecified; Z66 Do not resuscitate; E11.21 Type 2 diabetes mellitus with diabetic nephropathy; Z51.5 Encounter for palliative care